=== PATIENT | female | born 1955 | race Caucasian/White ===

== ENCOUNTER 2016-06-25 02:09 | Emergency (ER) | payer BC ==
[2016-06-25] MEDS ORDERED: IPRATROPIUM/ALBUTEROL 0.5-2.5 MG/3 ML AMPUL NEB ONE (05:01)
[2016-06-25] MEDS ORDERED: PREDNISONE 20 MG TABLET PO ONE (05:01)
--- NOTE | 2016-06-25 05:03 | ER Document Report ---
ED Respiratory Problem - General Mode of Arrival: Ambulatory Information source: Patient TRAVEL OUTSIDE OF THE [place] IN LAST 30 DAYS: No - HPI Patient complains to provider of: CHF, COPD, Cough, Short of breath Onset: Yesterday Duration: Continuous Context: Hx CHF, Hx COPD At home treatment: Oxygen - at night Associated symptoms: Cough, Short of breath, Wheezing <AGATA ZARATE - Last Filed: 06/25/16 05:24> <CORIN GARCÍA - Last Filed: 06/25/16 06:41> <MANUEL LEMOS - Last Filed: 06/25/16 09:59> - General Chief Complaint: Breathing Difficulty Stated Complaint: TROUBLE BREATHING Notes: Patient is 58-year-old female presented emergency department complaint of difficulty breathing, cough, and sputum. Patient has history of COPD, CHF and is a former smoker. Patient states that she has a cough that she describes as "foamy, bubbly, with bloody mucus." Patient states last time her breathing was this bad was in March 2016 where she had similar symptoms. Patient was here for approximately 5 days for aspiration pneumonia. Patient is on oxygen at night. Patient also has history of type II diabetes mellitus, hypertension, and A. fib. Patient's PCP is [facility]. Patient states her difficulty breathing started at 20:00 on 06/24/16. (AGATA ZARATE) This 60-year-old female patient comes emergency room for worsening shortness of breath which started about 10 PM this evening. She reports doing 2 albuterol treatments with a nebulizer at home but that did not help at all. She is on home O2 for COPD. She is also significant for an ASD closure about 3 years ago, chronic A. fib, CHF, diabetes, hypertension. She quit smoking 4 years ago. When seen in the emergency room she has diffuse inspiratory and expiratory wheezes, with prolonged expiratory phase. DuoNeb treatment did not improve her very much. She states she cannot tell any difference. She states the last time she had this much trouble was in March 2016 when she was admitted for acute on chronic hypoxic respiratory failure. (CORIN GARCÍA) - Related Data Allergies/Adverse Reactions: ampicillin [Ampicillin] Allergy (Verified 05/14/16 19:30) Penicillins Allergy (Verified 05/14/16 19:30) tetracycline [Tetracycline] Allergy (Verified 05/14/16 19:30) cillins Allergy (Uncoded 05/14/16 19:30) Past Medical History - General Information source: Patient - Social History Smoking Status: Former Smoker - quit in 2011 Chew tobacco use (# tins/day): No Frequency of alcohol use: None Drug Abuse: None Family History: CAD, DM, Malignancy Patient has suicidal ideation: No Patient has homicidal ideation: No - Past Medical History Cardiac Medical History: Reports: Hx Atrial Fibrillation, Hx Congestive Heart Failure, Hx Coronary Artery Disease, Hx Hypertension, Hx Heart Murmur Pulmonary Medical History: Reports: Hx Asthma, Hx Bronchitis, Hx COPD, Hx Pneumonia Endocrine Medical History: Reports: Hx Diabetes Mellitus Type 2 - diet controlled and metformin GI Medical History: Reports: Hx Diverticulitis Musculoskeltal Medical History: Reports Other - spinal stenosis Past Surgical History: Reports: Hx Bowel Surgery - PYLORIC STENOSIS, Hx Cardiac Catheterization - x3, Hx Cardiac Surgery - ASD closure, Hx Section - x2 1980s, Hx Tubal Ligation, Other - polyp removed - Immunizations Immunizations up to date: Yes Hx Diphtheria, Pertussis, Tetanus Vaccination: Yes Hx Pneumococcal Vaccination: 06/21/14 <AGATA ZARATE - Last Filed: 06/25/16 05:24> Review of Systems - Review of Systems Constitutional: No symptoms reported EENT: No symptoms reported Cardiovascular: No symptoms reported Respiratory: See HPI, Cough, Short of breath, Sputum, Wheezing Gastrointestinal: No symptoms reported Genitourinary: No symptoms reported Female Genitourinary: No symptoms reported Musculoskeletal: No symptoms reported Skin: No symptoms reported Hematologic/Lymphatic: No symptoms reported Neurological/Psychological: No symptoms reported -: Yes All other systems reviewed and negative <AGATA ZARATE - Last Filed: 06/25/16 05:24> Physical Exam - Vital signs Interpretation: Normal - General General appearance: Appears well, Alert In distress: Mild - HEENT Head: Normocephalic, Atraumatic Eyes: Normal Pupils: PERRL Mucous membranes: Normal - Respiratory Respiratory status: No respiratory distress Chest status: Nontender Breath sounds: Rhonchi, Wheezing - Respiratory expiratory wheezing with very prolonged expiratory phase Chest palpation: Normal - Cardiovascular Rhythm: Regular Heart sounds: Normal auscultation - Abdominal Inspection: Normal Distension: No distension Bowel sounds: Normal Tenderness: Nontender Organomegaly: No organomegaly - Back Back: Normal, Nontender - Extremities General upper extremity: Normal inspection, Normal ROM, Normal strength General lower extremity: Normal inspection, Normal ROM, Normal strength - Neurological Neuro grossly intact: Yes Cognition: Normal Orientation: AAOx4 Sonny Coma Scale Eye Opening: Spontaneous Sonny Coma Scale Verbal: Oriented [place] Coma Scale Motor: Obeys Commands [place] Coma Scale Total: 15 Speech: Normal - Psychological Associated symptoms: Normal affect, Normal mood - Skin Skin Temperature: Warm Skin Moisture: Dry <AGATA ZARATE - Last Filed: 06/25/16 05:24> Course <AGATA ZARATE - Last Filed: 06/25/16 05:24> - Laboratory Result Diagrams: 06/25/16 05:21 06/25/16 05:21 - Diagnostic Test Radiology reviewed: Image reviewed, Reports reviewed - Chest x-ray shows COPD with no infiltrates or pulmonary edema. There is some vascular congestion seen according to the radiologist. The BNP is - EKG Interpretation by Ar EKG shows normal: Downs, Intervals, ST-T Waves. abnormal: QRS Complexes Rate: Normal - 85 Rhythm: A.Fib Downs/QRS: RBBB - Consults Dr. Rea Time consulted: 06:20 Consulted provider: will come to ER <CORIN GARCÍA - Last Filed: 06/25/16 06:41> - Laboratory Result Diagrams: 06/25/16 05:21 06/25/16 05:21 <MANUEL LEMOS - Last Filed: 06/25/16 09:59> - Re-evaluation Re-evalutation: 06/25/16 06:27 (CORIN GARCÍA) 06/25/16 09:52 Patient was seen and evaluated by hospitalist Dr. Guido this morning. At this time patient is feeling much better is requesting to go home. Patient was evaluated by hospitalist and agrees with this assessment. I personally interviewed patient she agrees to be discharged home. Dr. Guido is requesting a tapering dose of steroids 603 days 403 days 203 days then stop patient also requesting more beer all inhalers. Patient was encouraged to return to the ER symptoms worsen. (MANUEL LEMOS) - Vital Signs Vital signs: Temp Pulse Resp BP Pulse Ox 92 12 99/56 L 94 06/25/16 06:16 06/25/16 08:10 06/25/16 08:10 06/25/16 08:10 (CORIN GARCÍA) (MANUEL LEMOS) Discharge <AGATA ZARATE - Last Filed: 06/25/16 05:24> <CORIN GARCÍA - Last Filed: 06/25/16 06:41> <MANUEL LEMOS - Last Filed: 06/25/16 09:59> - Discharge Clinical Impression: Acute exacerbation of chronic obstructive pulmonary disease (COPD), Chronic atrial fibrillation Condition: Good Disposition: HOME, SELF-CARE Instructions: Chronic Obstructive Lung Disease ([facility]) Additional Instructions: Follow-up with primary care physician. Take medications as prescribed. Return to the ER symptoms worsen. Prescriptions: Albuterol Sulfate [Albuterol Sulfate 2.5mg/3 mL] 2.5 mg IH Q4 PRN #30 vial PRN Reason: Prednisone [Deltasone] 20 mg PO DAILY #18 tablet Scribe Attestation: 06/25/16 06:31 I personally performed the services described in the documentation, reviewed and edited the documentation which was dictated to the scribe in my presence, and it accurately records my words and actions. (CORIN GARCÍA) Scribe Documentation - Scribe Written by Stephen:: Agata Zarate (06/25/15 05:38) acting as scribe for :: Mckayla <AGATA ZARATE - Last Filed: 06/25/16 05:24>
[2016-06-25 05:34] LABS: ABSOLUTE EOSINOPHILS # (AUTO) 0.2 10^3/uL (0.0-0.6); ABSOLUTE LYMPHOCYTES (AUTO) 1.6 10^3/uL (0.5-4.7); ABSOLUTE MONOCYTES (AUTO) 0.5 10^3/uL (0.1-1.4); ABSOLUTE NEUT (AUTO) 3.2 10^3/uL (1.7-8.2); BASOPHILS % (AUTO) 0.7 % (0-2); EOSINOPHILS % (AUTO) 3.8 % (0-6); HEMATOCRIT 43.5 % (36.0-47.0); HEMOGLOBIN 14.8 g/dL (12.0-15.5); HGB HCT DIFFERENCE 0.9; LYMPHOCYTES % (AUTO) 28.7 % (13-45); MEAN CORPUSCULAR HEMOGLOBIN 29.9 pg (27.0-33.4); MEAN CORPUSCULAR VOLUME 88 fl (80-97); MONOCYTES % (AUTO) 8.9 % (3-13); RED BLOOD COUNT 4.95 10^6/uL (3.72-5.28); SEGMENTED NEUTROPHILS % (AUTO) 57.9 % (42-78); WHITE BLOOD COUNT 5.6 10^3/uL (4.0-10.5)
[2016-06-25 05:47] LABS: ALANINE AMINOTRANSFERASE 41 U/L (9-52); ALBUMIN 3.8 g/dL (3.5-5.0); ALKALINE PHOSPHATASE 70 U/L (38-126); ANION GAP 13 (5-19); ASPARTATE AMINO TRANSFERASE 28 U/L (14-36); BILIRUBIN,TOTAL 0.3 mg/dL (0.2-1.3); BLOOD UREA NITROGEN 11 mg/dL (7-20); CALCIUM 9.2 mg/dL (8.4-10.2); CARBON DIOXIDE 25 mmol/L (22-30); CHLORIDE 103 mmol/L (98-107); CREATINE KINASE 72 U/L (30-135); CREATININE RESULT 0.58 mg/dL (0.52-1.25); GLUCOSE 87 mg/dL (75-110); POTASSIUM 4.1 mmol/L (3.6-5.0); SODIUM 141.3 mmol/L (137-145); TOTAL PROTEIN 6.3 g/dL (6.3-8.2)
[2016-06-25 05:59] LABS: CREATINE KINASE MB 0.54 ng/mL (<4.55); TROPONIN I 0.013 ng/mL
[2016-06-25] MEDS ORDERED: ALBUTEROL SULFATE 0.083% NEB 2.5 MG/3 ML AMPUL NEB ONE (06:25)
--- NOTE | 2016-06-25 07:58 | EKG REPORT ---
SEVERITY:- ABNORMAL ECG - ATRIAL FIBRILLATION, V-RATE 71-97 INCOMPLETE RIGHT BUNDLE BRANCH BLOCK : Confirmed by: Kori Keenan 25-Jun-2016 07:57:51
[2016-06-25 10:06] VITALS: BP 109/79
--- NOTE | 2016-06-25 19:43 | PDOC CONSULTATION ---
Consultation Consult Date: 06/25/16 Attending physician:: CORIN GARCÍA Consult reason:: Shortness of breath History of Present Illness History of Present Illness: LEXX KIMBALL is a 60 year old female with a history of atrial fibrillation, hypertension, COPD, and congestive heart failure who presented to the emergency department after having a sudden onset of shortness of breath. She reports that she couldn't breathe laying she was better sitting. She has noted some swelling but not very much recently. She reports she's had clear sputum and that she's felt better after receiving prednisone and breathing treatments in the emergency department. She reports she got nauseated yesterday. She reports that her sputum has been foamy purulent. She reports that she's had no weight gain and has been watching her weight carefully and reports actually a 20 pound weight loss since discharge. Patient feels comfortable beginning of steroid taper and following up with her primary care physician and if unable to improve will return to the emergency department. Past Medical History Cardiac Medical History: Reports: Atrial Fibrillation, Congestive Heart Failure , Coronary Artery Disease, Hypertension, Heart Murmur Pulmonary Medical History: Reports: Asthma, Bronchitis, Chronic Obstructive Pulmonary Disease (COPD), Pneumonia Denies: Tuberculosis Neurological Medical History: Denies: Seizures Endocrine Medical History: Reports: Diabetes Mellitus Type 2 - diet controlled and metformin GI Medical History: Reports: Diverticulitis Musculoskeltal Medical History: Reports: Other - spinal stenosis Denies: Arthritis Psychiatric Medical History: Denies: Depression Past Surgical History Past Surgical History: Reports: Cardiac Catheterization - x3, Section - x2 1980s, Tubal Ligation, Other - polyp removed Denies: Hysterectomy, Pacemaker Social History Smoking Status: Former Smoker - quit in 2011 Frequency of Alcohol Use: Rare Hx Recreational Drug Use: No Drugs: None Hx Prescription Drug Abuse: No - Advance Directive Resuscitation Status: Full Code Surrogate healthcare decision maker:: Family History Family History: CAD, DM, Malignancy Parental Family History Reviewed: Yes Children Family History Reviewed: Yes Sibling(s) Family History Reviewed.: Yes Medication/Allergy Home Medications: Aspirin [Aspirin 81 mg Chewable Tablet] 81 mg PO DAILY 07/29/13 Dabigatran Etexilate Mesylate [Pradaxa 150 mg Capsule] 110 mg PO Q12 07/29/13 Diltiazem HCl [Cardizem] 120 mg PO DAILY 07/29/13 Digoxin [Lanoxin] 62.5 mcg PO DAILY 04/09/16 Lisinopril/Hydrochlorothiazide [Lisinopril-Hctz 10-12.5 mg Tab] 1 each PO DAILY 04/10/16 Azithromycin [Zithromax 250 mg Tablet] 250 mg PO ASDIR PRN #6 tablet 05/14/16 Digoxin [Lanoxin 0.125 mg Tablet] 0.125 mg PO DAILY #60 tablet 05/14/16 Prednisone 20 mg PO DAILY #15 tablet 05/14/16 Albuterol Sulfate [Albuterol Sulfate 2.5mg/3 mL] 2.5 mg IH Q4 PRN #30 vial 06/25 Prednisone [Deltasone] 20 mg PO DAILY #18 tablet 06/25/16 Allergies/Adverse Reactions: ampicillin [Ampicillin] Allergy (Verified 05/14/16 19:30) Penicillins Allergy (Verified 05/14/16 19:30) tetracycline [Tetracycline] Allergy (Verified 05/14/16 19:30) cillins Allergy (Uncoded 05/14/16 19:30) Review of Systems Constitutional: PRESENT: as per HPI. ABSENT: chills, fever(s), headache(s), weight gain, weight loss Eyes: ABSENT: visual disturbances Ears: ABSENT: hearing changes Cardiovascular: PRESENT: as per HPI, orthropnea. ABSENT: chest pain, dyspnea on exertion, edema, palpitations Respiratory: PRESENT: as per HPI, cough, sputum. ABSENT: hemoptysis Gastrointestinal: PRESENT: as per HPI, nausea. ABSENT: abdominal pain, constipation, diarrhea, hematemesis, hematochezia, melena, vomiting Genitourinary: ABSENT: dysuria, hematuria Musculoskeletal: ABSENT: joint swelling Integumentary: ABSENT: rash, wounds Neurological: ABSENT: abnormal gait, abnormal speech, confusion, dizziness, focal weakness, syncope Psychiatric: ABSENT: anxiety, depression, homidical ideation, suicidal ideation Endocrine: ABSENT: cold intolerance, heat intolerance, polydipsia, polyuria Hematologic/Lymphatic: ABSENT: easy bleeding, easy bruising Physical Exam Vital Signs: Temp Pulse Resp BP Pulse Ox 92 24 H 109/79 95 06/25/16 06:16 06/25/16 10:04 06/25/16 10:04 06/25/16 10:04 Exam: General: Awake alert and oriented x3, no acute respiratory distress HEENT: AT/NC, PERRL, EOMI, oropharynx is moist, pink, no scleral icterus, no conjunctival injection Neck: No JVD, trachea midline Chest: Light end expiratory wheezes CV: normal S1 and S2, no rub, or gallop; + murmur Abdomen: Soft, nontender to palpation, nondistended, active bowel sounds; no rebound, rigidity, or guarding Extremities: No cyanosis, clubbing or edema Neuro: Cranial nerves II through XII are grossly intact without focal deficits; awake alert and oriented x3 Psych: Normal mood and affect Results Laboratory Results: 06/25/16 05:21 06/25/16 05:21 06/25/16 06/25/16 05:21 05:21 WBC 5.6 RBC 4.95 Hgb 14.8 Hct 43.5 MCV 88 MCH 29.9 MCHC 34.0 RDW 14.0 Plt Count 204 Seg Neutrophils % 57.9 Lymphocytes % 28.7 Monocytes % 8.9 Eosinophils % 3.8 Basophils % 0.7 Absolute Neutrophils 3.2 Absolute Lymphocytes 1.6 Absolute Monocytes 0.5 Absolute Eosinophils 0.2 Absolute Basophils 0.0 Sodium 141.3 Potassium 4.1 Chloride 103 Carbon Dioxide 25 Anion Gap 13 BUN 11 Creatinine 0.58 Est GFR ( Amer) > 60 Est GFR (Non-Af Amer) > 60 Glucose 87 Calcium 9.2 Total Bilirubin 0.3 AST 28 ALT 41 Alkaline Phosphatase 70 Total Protein 6.3 Albumin 3.8 06/25/16 06/25/16 06/25/16 05:21 05:21 05:21 Creatine Kinase 72 CK-MB (CK-2) 0.54 Troponin I 0.013 NT-Pro-B Natriuret Pep 221 Impressions: Chest X-Ray 06/25/16 05:04 IMPRESSION: No acute abnormality in the chest. Assessment & Plan - Diagnosis (1) Acute exacerbation of chronic obstructive pulmonary disease (COPD) Is this a current diagnosis for this admission?: YesPlan: Have discussed with ER physician who will send her home with prednisone taper. Patient advised to follow-up with her primary care physician within the week. Advised return the emergency department if her symptoms worsen or for any other medical concerns (2) Chronic atrial fibrillation Is this a current diagnosis for this admission?: YesPlan: Continue home medications as previously instructed - Time Time Spent: 50 to 70 Minutes Medications reviewed and adjusted accordingly: Yes Anticipated discharge: Home
== END 2016-06-25 10:06 | disposition home or self-care (01) ==
LOC: ER 02:09
DX: J44.1 Chronic obstructive pulmonary disease with (acute) exacerbation (principal); I48.2 Chronic atrial fibrillation; I50.9 Heart failure, unspecified; E11.9 Type 2 diabetes mellitus without complications; I10 Essential (primary) hypertension; Z87.891 Personal history of nicotine dependence; Z99.81 Dependence on supplemental oxygen
CPT/HCPCS: 93005; 94640 ×2; 99285; 36415; 87040; 82553; 82550; 85025; 87077; 80053; 84484; 87186; 83880; 71010; 93010; J7512; J7620

== ENCOUNTER 2016-08-28 05:30 | Inpatient (IN) | payer BC ==
[2016-08-28] MEDS ORDERED: IPRATROPIUM/ALBUTEROL 0.5-2.5 MG/3 ML AMPUL NEB ONE (05:42)
[2016-08-28] MEDS: ALBUTEROL SULFATE 0.083% NEB 2.5 MG/3 ML AMPUL NEB SCH ×2 (05:52→06:09)
[2016-08-28 06:08] LABS: VENOUS BLOOD BASE EXCESS 0.4 mmol/L; VENOUS BLOOD HCO3 27.6 mmol/L (20-32); VENOUS BLOOD PCO2 54.9 mmHg (35-63); VENOUS BLOOD PH 7.32 (7.30-7.42)
[2016-08-28 06:19] LABS: ABSOLUTE BASOPHILS # (AUTO) 0.1 10^3/uL (0.0-0.2); ABSOLUTE EOSINOPHILS # (AUTO) 0.7 10^3/uL (0.0-0.6); ABSOLUTE LYMPHOCYTES (AUTO) 2.9 10^3/uL (0.5-4.7); ABSOLUTE MONOCYTES (AUTO) 0.5 10^3/uL (0.1-1.4); ABSOLUTE NEUT (AUTO) 4.1 10^3/uL (1.7-8.2); BASOPHILS % (AUTO) 0.7 % (0-2); EOSINOPHILS % (AUTO) 8.4 % (0-6); HEMATOCRIT 41.8 % (36.0-47.0); HEMOGLOBIN 13.9 g/dL (12.0-15.5); HGB HCT DIFFERENCE -0.1; LYMPHOCYTES % (AUTO) 34.9 % (13-45); MEAN CORPUSCULAR HEMOGLOBIN 29.4 pg (27.0-33.4); MEAN CORPUSCULAR HGB CONC 33.3 g/dL (32.0-36.0); MEAN CORPUSCULAR VOLUME 88 fl (80-97); RED BLOOD COUNT 4.73 10^6/uL (3.72-5.28); RED CELL DISTRIBUTION WIDTH 14.2 % (11.5-14.0); WHITE BLOOD COUNT 8.2 10^3/uL (4.0-10.5)
[2016-08-28] MEDS ORDERED: METHYLPREDNISOLONE INJ 125 MG/2 ML SDV IV ONE (06:22)
[2016-08-28] MEDS ORDERED: MAGNESIUM SULFATE/D5W 100 ML IV ONE (06:23)
[2016-08-28] MEDS ORDERED: ALBUTEROL SULFATE 0.083% NEB 2.5 MG/3 ML AMPUL NEB ONE (06:23)
[2016-08-28] MEDS ORDERED: TERBUTALINE SULFATE INJ/PF 1 MG/1 ML SDV SUBCUT ONE (06:23)
[2016-08-28 06:26] LABS: ALANINE AMINOTRANSFERASE 35 U/L (9-52); ALBUMIN 4.1 g/dL (3.5-5.0); ALKALINE PHOSPHATASE 75 U/L (38-126); ANION GAP 14 (5-19); ASPARTATE AMINO TRANSFERASE 20 U/L (14-36); BILIRUBIN,TOTAL 0.6 mg/dL (0.2-1.3); BLOOD UREA NITROGEN 9 mg/dL (7-20); CARBON DIOXIDE 27 mmol/L (22-30); CHLORIDE 104 mmol/L (98-107); CREATINE KINASE 72 U/L (30-135); GLUCOSE 114 mg/dL (75-110); LIPASE 79.5 U/L (23-300); MAGNESIUM 1.6 mg/dL (1.6-2.3); POTASSIUM 3.5 mmol/L (3.6-5.0); SODIUM 145.1 mmol/L (137-145); TOTAL PROTEIN 6.3 g/dL (6.3-8.2)
[2016-08-28 06:38] LABS: CREATINE KINASE MB 0.58 ng/mL (<4.55)
[2016-08-28 06:42] LABS: TROPONIN I < 0.012 ng/mL
[2016-08-28] MEDS ORDERED: POTASSIUM CHLORIDE 10 MEQ TABLET.SA PO ONE (06:53)
[2016-08-28] MEDS ORDERED: ACETAMINOPHEN 325 MG TABLET PO ONE (07:44)
--- NOTE | 2016-08-28 08:50 | ER Document Report ---
ED General - General Chief Complaint: Breathing Difficulty Stated Complaint: SHORT OF BREATH/WHEEZING TRAVEL OUTSIDE OF THE [place] IN LAST 30 DAYS: No - HPI Patient complains to provider of: difficulty in breathing Notes: Patient's coming in for evaluation of difficulty breathing. Patient has a history of COPD respiratory failure hypercapnia past. Patient states ongoing for the last 3 days no production to her cough no fevers no chills no night sweats however states that there is been no improvement with her treatments at home. Patient denies any recent antibiotics or recent steroids. Patient denies also any recent travel denies chest pain abdominal pain - Related Data Allergies/Adverse Reactions: ampicillin [Ampicillin] Allergy (Verified 08/28/16 07:45) Penicillins Allergy (Verified 08/28/16 07:45) tetracycline [Tetracycline] Allergy (Verified 08/28/16 07:45) cillins Allergy (Uncoded 08/28/16 07:45) Home Medications: Current Home Medications Albuterol Sulfate [Proair HFA] 2 puff IH Q4HP PRN 08/28/16 [History] Albuterol Sulfate [Ventolin 0.042% Neb 1.25 mg/3 mL Ampul] 3 ml NEB RTQ4HP PRN 08/28/16 [History] Aspirin [Adult Low Dose Aspirin EC] 81 mg PO DAILY 08/28/16 [History] Dabigatran Etexilate Mesylate [Pradaxa 150 mg Capsule] 150 mg PO BID 08/28/16 [ History] Digoxin [Lanoxin 0.25 mg Tablet] 0.25 mg PO DAILY 08/28/16 [History] Diltiazem HCl [Diltiazem ER] 180 mg PO DAILY 08/28/16 [History] Fluticasone Propionate [Flonase Nasal Harvey 50 Mcg/Harvey 16 gm] 2 spray NASL DAILY 08/28/16 [History] Furosemide [Lasix] 40 mg PO DAILY PRN 08/28/16 [History] Lisinopril [Zestril] 2.5 mg PO DAILY 08/28/16 [History] Melatonin 10 mg PO QPM 08/28/16 [History] Metformin HCl [Glucophage] 500 mg PO BIDBS 08/28/16 [History] Multivitamin [Multivitamins] 1 cap PO DAILY 08/28/16 [History] Sennosides/Docusate 8.6-50 mg [Senna Plus Tablet] 1 tab PO DAILY 08/28/16 [ History] Umeclidinium Brm/Vilanterol Tr [Anoro Ellipta 62.5-25 Mcg INH] 1 puff IH DAILY 08/28/16 [History] Past Medical History - Social History Smoking Status: Current Every Day Smoker Chew tobacco use (# tins/day): No Frequency of alcohol use: None Drug Abuse: None Family History: CAD, DM, Malignancy Patient has suicidal ideation: No Patient has homicidal ideation: No - Past Medical History Cardiac Medical History: Reports: Hx Atrial Fibrillation, Hx Congestive Heart Failure, Hx Coronary Artery Disease, Hx Hypertension, Hx Heart Murmur Pulmonary Medical History: Reports: Hx Asthma, Hx Bronchitis, Hx COPD, Hx Pneumonia Denies: Hx Tuberculosis Neurological Medical History: Denies: Hx Seizures Endocrine Medical History: Reports: Hx Diabetes Mellitus Type 2 - diet controlled and metformin Renal/ Medical History: Denies: Hx Peritoneal Dialysis GI Medical History: Reports: Hx Diverticulitis Musculoskeltal Medical History: Denies Hx Arthritis Psychiatric Medical History: Denies: Hx Depression Past Surgical History: Reports: Hx Bowel Surgery - PYLORIC STENOSIS, Hx Cardiac Catheterization - x3, Hx Cardiac Surgery - ASD closure, Hx Section - x2 1980s, Hx Tubal Ligation, Other - polyp removed. Denies: Hx Hysterectomy, Hx Pacemaker - Immunizations Immunizations up to date: Yes Hx Diphtheria, Pertussis, Tetanus Vaccination: Yes Hx Pneumococcal Vaccination: 06/21/14 Review of Systems - Review of Systems Constitutional: No symptoms reported EENT: No symptoms reported Cardiovascular: No symptoms reported Respiratory: Cough, Short of breath, Wheezing Gastrointestinal: No symptoms reported Genitourinary: No symptoms reported Female Genitourinary: No symptoms reported Musculoskeletal: No symptoms reported Skin: No symptoms reported Hematologic/Lymphatic: No symptoms reported Neurological/Psychological: No symptoms reported -: Yes All other systems reviewed and negative Physical Exam - Vital signs Vitals: Temp Pulse Resp BP Pulse Ox 97.7 F 97 28 H 123/83 90 L 08/28/16 05:35 08/28/16 05:35 08/28/16 05:35 08/28/16 05:35 08/28/16 05:35 Interpretation: Normal - General General appearance: Appears well, Alert - HEENT Head: Normocephalic, Atraumatic Eyes: Normal Pupils: PERRL - Respiratory Respiratory status: No respiratory distress Chest status: Nontender Breath sounds: Rhonchi, Wheezing Chest palpation: Normal - Cardiovascular Rhythm: Irregularly irregular Heart sounds: Normal auscultation Murmur: No - Abdominal Inspection: Normal Distension: No distension Bowel sounds: Normal Tenderness: Nontender Organomegaly: No organomegaly - Back Back: Normal, Nontender - Extremities General upper extremity: Normal inspection, Nontender, Normal color, Normal ROM , Normal temperature General lower extremity: Normal inspection, Nontender, Normal color, Normal ROM , Normal temperature, Normal weight bearing. No: Willis's sign - Neurological Neuro grossly intact: Yes Cognition: Normal Orientation: AAOx4 Sonny Coma Scale Eye Opening: Spontaneous Sonny Coma Scale Verbal: Oriented [place] Coma Scale Motor: Obeys Commands [place] Coma Scale Total: 15 Speech: Normal Motor strength normal: LUE, RUE, LLE, RLE Sensory: Normal - Psychological Associated symptoms: Normal affect, Normal mood - Skin Skin Temperature: Warm Skin Moisture: Dry Skin Color: Normal Course - Re-evaluation Re-evalutation: 08/28/16 15:19 Patient lab work only showed slight hypokalemia with no signs of hypercapnia chest x-ray shows no signs of concurrent infection or pneumonia. Patient was given magnesium terbutaline steroids and multiple real treatments however upon ambulating patient became very short of breath and tachypnea patient still sounds very tight she's case was referred to the hospitalist for further evaluation - Vital Signs Vital signs: Temp Pulse Resp BP Pulse Ox 97.7 F 95 18 126/71 H 95 08/28/16 13:17 08/28/16 13:17 08/28/16 13:17 08/28/16 13:17 08/28/16 13:17 - Laboratory Result Diagrams: 08/28/16 05:53 08/28/16 05:53 Laboratory results interpreted by me: 08/28/16 08/28/16 08/28/16 05:53 05:53 05:53 RDW 14.2 H Eosinophils % 8.4 H Absolute Eosinophils 0.7 H Sodium 145.1 H Potassium 3.5 L Creatinine 0.50 L Glucose 114 H Digoxin 0.71 L Discharge - Discharge Clinical Impression: Acute exacerbation of chronic obstructive pulmonary disease (COPD) Afib Qualifiers: Atrial fibrillation type: chronic Qualified Code(s): I48.2 - Chronic atrial fibrillation Condition: Fair Disposition: ADMITTED INPATIENT [facility] Admitted: Telemetry
[2016-08-28] MEDS ORDERED: GLUCAGON,HUMAN RECOMB 1 MG INJ IM PRN (09:22)
[2016-08-28] MEDS ORDERED: DEXTROSE 50%-WATER 25 GM/50 ML DISP.SYRIN IV PRN ×2 (09:22)
[2016-08-28] MEDS ORDERED: ACETAMINOPHEN 325 MG TABLET PO PRN (09:22)
[2016-08-28] MEDS ORDERED: ALBUTEROL SULFATE 0.083% NEB 2.5 MG/3 ML AMPUL NEB PRN (09:22)
[2016-08-28] MEDS ORDERED: DEXTROSE 40% GEL 15 GM TUBE PO PRN ×2 (09:22)
[2016-08-28] MEDS: OXYCODONE-ACETAMINOPHEN 5-325 MG TABLET PO PRN ×3 (09:55→23:20)
[2016-08-28] MEDS ORDERED: (PENDING PHARMACY ID) (Diltiazem Hcl [Cardizem] 120 MG) PO SCH (10:00)
[2016-08-28] MEDS: CEFTRIAXONE 1 GM/D5W RTU 50 ML IV SCH (10:00)
[2016-08-28] MEDS ORDERED: (PENDING PHARMACY ID) (Lisinopril/Hydrochlorothiazide [Lisinopril-Hctz 10-12.5 Mg Tab] 1 E PO SCH (10:00)
[2016-08-28] MEDS: DIGOXIN 0.25 MG TABLET PO SCH (10:25)
[2016-08-28] MEDS: DABIGATRAN ETEXILATE 150 MG CAPSULE PO SCH ×2 (10:25→22:41)
[2016-08-28] MEDS: DOCUSATE SODIUM 100 MG CAPSULE PO SCH (10:25)
[2016-08-28] MEDS: HYDROCHLOROTHIAZIDE 12.5 MG CAPSULE PO SCH (10:30)
[2016-08-28] MEDS: DILTIAZEM HCL 120 MG CAP.SR.24H PO SCH (10:30)
[2016-08-28] MEDS: LISINOPRIL 10 MG TABLET PO SCH (10:30)
[2016-08-28] MEDS: ASPIRIN 81 MG TABLET, CHEWABLE PO SCH (10:30)
[2016-08-28] MEDS: INSULIN LISPRO 100 UNIT/ML 3 ML VIAL SUBCUT PRN ×3 (12:30→22:49)
[2016-08-28] MEDS: METHYLPREDNISOLONE INJ 40 MG/1 ML SDV IV SCH ×2 (14:00→22:41)
[2016-08-28] MEDS: IPRATROPIUM/ALBUTEROL 0.5-2.5 MG/3 ML AMPUL NEB SCH (16:26)
--- NOTE | 2016-08-28 19:23 | PDOC H&P ---
History of Present Illness Admission Date/PCP: 08/28/16 09:22 ABIODUN HART DO Patient complains of: Difficulty breathing History of Present Illness: LEXX KIMBALL is a 61 year old female presents to the emergency department from home with several day history of chest congestion, tightness and wheezing with cough productive of a milky white phlegm. She denies fever, chills, nausea , vomiting, diarrhea, cardiac type chest pain, orthopnea, PND, weight gain or loss, hemoptysis, melena, hematochezia. She has known COPD and wears nocturnal O2 at 2 L continuous and has a home nebulizer machine but is getting no relief from either one. She has a history of chronic atrial fibrillation for which she takes per DEXA and diltiazem. She has a history of congestive heart failure but does not complain of any swelling of her lower extremities are wrapped waking. Evaluation in the emergency department chest x-ray shows questionable atelectasis but she is not improving with nebulizers, IV steroids and supplemental oxygen therefore we were asked to admit for COPD exacerbation. Past Medical History Cardiac Medical History: Reports: Atrial Fibrillation, Congestive Heart Failure , Coronary Artery Disease, Hypertension, Heart Murmur Pulmonary Medical History: Reports: Asthma, Bronchitis, Chronic Obstructive Pulmonary Disease (COPD), Pneumonia Denies: Tuberculosis Neurological Medical History: Denies: Seizures Endocrine Medical History: Reports: Diabetes Mellitus Type 2 - diet controlled and metformin GI Medical History: Reports: Diverticulitis Musculoskeltal Medical History: Denies: Arthritis Psychiatric Medical History: Denies: Depression Past Surgical History Past Surgical History: Reports: Cardiac Catheterization - x3, Section - x2 1980s, Tubal Ligation, Other - polyp removed Denies: Hysterectomy, Pacemaker Social History Smoking Status: Current Every Day Smoker Number of Years Smokin Frequency of Alcohol Use: Rare Hx Recreational Drug Use: No Drugs: None Hx Prescription Drug Abuse: No - Advance Directive Resuscitation Status: Full Code Family History Family History: CAD, DM, Malignancy Parental Family History Reviewed: Yes Children Family History Reviewed: Yes Sibling(s) Family History Reviewed.: Yes Medication/Allergy Home Medications: Albuterol Sulfate [Proair HFA] 2 puff IH Q4HP PRN 08/28/16 Albuterol Sulfate [Ventolin 0.042% Neb 1.25 mg/3 mL Ampul] 3 ml NEB RTQ4HP PRN 08/28/16 Aspirin [Adult Low Dose Aspirin EC] 81 mg PO DAILY 08/28/16 Dabigatran Etexilate Mesylate [Pradaxa 150 mg Capsule] 150 mg PO BID 08/28/16 Digoxin [Lanoxin 0.25 mg Tablet] 0.25 mg PO DAILY 08/28/16 Diltiazem HCl [Diltiazem ER] 180 mg PO DAILY 08/28/16 Fluticasone Propionate [Flonase Nasal [place] 50 Mcg/[place] 16 gm] 2 spray NASL DAILY 08/28/16 Furosemide [Lasix] 40 mg PO DAILY PRN 08/28/16 Lisinopril [Zestril] 2.5 mg PO DAILY 08/28/16 Melatonin 10 mg PO QPM 08/28/16 Metformin HCl [Glucophage] 500 mg PO BIDBS 08/28/16 Multivitamin [Multivitamins] 1 cap PO DAILY 08/28/16 Sennosides/Docusate 8.6-50 mg [Senna Plus Tablet] 1 tab PO DAILY 08/28/16 Umeclidinium Brm/Vilanterol Tr [Anoro Ellipta 62.5-25 Mcg INH] 1 puff IH DAILY 08/28/16 Allergies/Adverse Reactions: ampicillin [Ampicillin] Allergy (Verified 08/28/16 07:45) Penicillins Allergy (Verified 08/28/16 07:45) tetracycline [Tetracycline] Allergy (Verified 08/28/16 07:45) cillins Allergy (Uncoded 08/28/16 07:45) Review of Systems Constitutional: ABSENT: chills, fever(s), headache(s), weight gain, weight loss Eyes: ABSENT: visual disturbances Ears: ABSENT: hearing changes Cardiovascular: ABSENT: chest pain, dyspnea on exertion, edema, orthropnea, palpitations Respiratory: PRESENT: as per HPI, cough, sputum. ABSENT: hemoptysis Gastrointestinal: ABSENT: abdominal pain, constipation, diarrhea, hematemesis, hematochezia, nausea, vomiting Genitourinary: ABSENT: dysuria, hematuria Musculoskeletal: ABSENT: joint swelling Integumentary: ABSENT: rash, wounds Neurological: ABSENT: abnormal gait, abnormal speech, confusion, dizziness, focal weakness, syncope Psychiatric: ABSENT: anxiety, depression Endocrine: ABSENT: cold intolerance, heat intolerance, polydipsia, polyuria Hematologic/Lymphatic: ABSENT: easy bleeding, easy bruising Physical Exam Vital Signs: Temp Pulse Resp BP Pulse Ox 97.6 F 90 19 122/70 94 08/28/16 14:59 08/28/16 14:59 08/28/16 14:59 08/28/16 14:59 08/28/16 14:59 PHYSICAL EXAM GENERAL: NAD; well developed, well nourished; no obese; alert and oriented to person, place, time, situation HEENT: normocephalic, atraumatic; EOMI, PERRLA, no conjunctival injection, no scleral icterus; oral mucosa moist, neck supple, no LAD, normal ROM RESPIRATORY: no accessory muscle use, no increased WOB, good air entry bilaterally; bilateral wheezes, but down rales, rhonchi or inspiratory crackles CARDIO: no JVD; irregularly irregular and rate control; no systolic murmur; no tachycardia VASCULAR: no carotid bruit; no abdominal bruit; no pallor; 2+ radial, DP pulse ; normal capillary refill GI: soft; nondistended; normal bowel sounds; no hepato spleno megaly; no rebound, rigidity, guarding; nontender NEURO: normal patella reflexes; normal motor function; no gait abnls; no dysarthria; no nystagmus; MSK: 5/5 strength; normal ROM hips; ambulatory without assistance; no tenderness EXTREMITIES: no calf tender; no palpable cords in calf; no clubbing, cyanosis , pedal edema PSYCH: normal affect, normal mood SKIN: warm; moist; no petechiae; no telengectasias; no jaundice; no rash Results Laboratory Results: 08/28/16 11:11 Troponin I < 0.012 Labs reviewed Impressions: Chest X-Ray 08/28/16 06:23 IMPRESSION: No significant interval change. Findings as noted above Assessment & Plan - Diagnosis (1) Acute exacerbation of chronic obstructive pulmonary disease (COPD) Is this a current diagnosis for this admission?: YesPlan: Admit to monitored bed overnight for IV systemic steroids, empiric antibiotics, nebulizers, supplemental O2. (2) Afib Qualifiers: Atrial fibrillation type: chronic Qualified Code(s): I48.2 - Chronic atrial fibrillation Is this a current diagnosis for this admission?: YesPlan: Rate controlled and on chronic anticoagulation, continue usual home regimen. (3) Acute on chronic respiratory failure with hypoxemia Is this a current diagnosis for this admission?: YesPlan: Treatment as noted above. Wean O2 as tolerated. (4) CAD (coronary artery disease) Qualifiers: Coronary Disease-Associated Artery/Lesion type: [place] artery [place] vs. transplanted heart: [place] heart Associated angina: without angina Qualified Code(s): I25.10 - Atherosclerotic heart disease of [place] coronary artery without angina pectoris Is this a current diagnosis for this admission?: YesPlan: Controlled. Continue home regimen. (5) Congestive heart failure (CHF) Qualifiers: Congestive heart failure type: unspecified congestive heart failure type Congestive heart failure chronicity: chronic Qualified Code(s): I50.9 - Heart failure, unspecified Is this a current diagnosis for this admission?: YesPlan: No evidence for acute heart failure. (6) Diabetes mellitus type 2 in nonobese Is this a current diagnosis for this admission?: YesPlan: Continue home regimen except holding metformin, cover with sliding scale. Blood sugars will likely worsen with systemic steroids. - Time Time Spent: 50 to 70 Minutes Medications reviewed and adjusted accordingly: Yes Anticipated discharge: Home Within: within 72 hours - Inpatient Certification Medical Necessity: Significant Comorbidiites Make Outpatient Treatment Too Risky , Need for IV Antibiotics, Risk of Complication if Not Cared For in Hospital
--- NOTE | 2016-08-28 19:38 | EKG REPORT ---
SEVERITY:- ABNORMAL ECG - ATRIAL FIBRILLATION, V-RATE 86-100 LOW VOLTAGE THROUGHOUT CONSIDER RVH W/ SECONDARY REPOL ABNORMALITY : Confirmed by: Kori Keenan 28-Aug-2016 19:37:45
--- NOTE | 2016-08-28 19:38 | EKG REPORT ---
SEVERITY:- ABNORMAL ECG - ATRIAL FIBRILLATION, V-RATE 85-123 INCOMPLETE RIGHT BUNDLE BRANCH BLOCK LOW VOLTAGE IN FRONTAL LEADS NONSPECIFIC REPOL ABNORMALITY, LATERAL LEADS : Confirmed by: Kori Keenan 28-Aug-2016 19:37:36
[2016-08-28] MEDS: ONDANSETRON HCL INJ/PF 4 MG/2 ML SDV IV PRN (23:20)
[2016-08-29] MEDS: IPRATROPIUM/ALBUTEROL 0.5-2.5 MG/3 ML AMPUL NEB SCH ×4 (00:17→23:55)
[2016-08-29] MEDS: METHYLPREDNISOLONE INJ 40 MG/1 ML SDV IV SCH ×2 (05:28→22:20)
[2016-08-29] MEDS: LANSOPRAZOLE 30 MG TAB.RAP.DR PO SCH (05:28)
[2016-08-29] MEDS: INSULIN LISPRO 100 UNIT/ML 3 ML VIAL SUBCUT PRN ×4 (08:17→23:00)
[2016-08-29] MEDS: LISINOPRIL 10 MG TABLET PO SCH (09:47)
[2016-08-29] MEDS: DIGOXIN 0.25 MG TABLET PO SCH (09:47)
[2016-08-29] MEDS: CEFTRIAXONE 1 GM/D5W RTU 50 ML IV SCH (09:47)
[2016-08-29] MEDS: DILTIAZEM HCL 120 MG CAP.SR.24H PO SCH (09:49)
[2016-08-29] MEDS: ASPIRIN 81 MG TABLET, CHEWABLE PO SCH (09:49)
[2016-08-29] MEDS: DOCUSATE SODIUM 100 MG CAPSULE PO SCH (09:49)
[2016-08-29] MEDS: DABIGATRAN ETEXILATE 150 MG CAPSULE PO SCH ×2 (09:54→22:20)
[2016-08-29] MEDS: HYDROCHLOROTHIAZIDE 12.5 MG CAPSULE PO SCH (09:58)
[2016-08-29] MEDS: OXYCODONE-ACETAMINOPHEN 5-325 MG TABLET PO PRN (13:27)
[2016-08-29] MEDS: ONDANSETRON HCL INJ/PF 4 MG/2 ML SDV IV PRN (15:53)
--- NOTE | 2016-08-29 16:32 | PDOC PROGRESS REPORT ---
Subjective Progress Note for:: 08/29/16 Subjective:: Reason for today's visit; follow-up COPD exacerbation Hospital course;LEXX KIMBALL is a 61 year old female presents to the emergency department from home with several day history of chest congestion, tightness and wheezing with cough productive of a milky white phlegm. She denies fever, chills, nausea, vomiting, diarrhea, cardiac type chest pain, orthopnea, PND, weight gain or loss, hemoptysis, melena, hematochezia. She has known COPD and wears nocturnal O2 at 2 L continuous and has a home nebulizer machine but is getting no relief from either one. She has a history of chronic atrial fibrillation for which she takes per DEXA and diltiazem. She has a history of congestive heart failure but does not complain of any swelling of her lower extremities are wrapped waking. Evaluation in the emergency department chest x-ray shows questionable atelectasis but she is not improving with nebulizers, IV steroids and supplemental oxygen therefore we were asked to admit for COPD exacerbation. Subjective: Patient really doesn't feel much better today she is complaining of "tickle" in the back of her throat causing cough which initiates further bronchospasm. She continues to complain of chest tightness without john chest pain. She notes some nausea after the paroxysms of cough. She denies fevers, chills, vomiting, diarrhea. ROS: per HPI plus a total of 10 systems reviewed, pertinent positives and negatives noted above, remaining systems negative. Physical Exam Vital Signs: Temp Pulse Resp BP Pulse Ox 97.9 F 96 16 108/73 98 08/29/16 11:51 08/29/16 15:57 08/29/16 15:57 08/29/16 11:51 08/29/16 11:51 Intake & Output 08/28/16 08/29/16 08/30/16 06:59 06:59 07:59 Intake Total 830 Balance 830 Weight 86.2 kg EXAM GENERAL: NAD; well developed, well nourished; no obese; alert and oriented to person, place, time, situation HEENT: normocephalic, atraumatic, no conjunctival injection, no scleral icterus ; oral mucosa moist, neck supple, no LAD, normal ROM RESPIRATORY: no accessory muscle use, no increased WOB, good air entry bilaterally; bilateral end expiratory wheezes, but no rales, rhonchi or inspiratory crackles CARDIO: no JVD; irregularly irregular and rate control; no systolic murmur; no tachycardia VASCULAR: no carotid bruit; no abdominal bruit; no pallor; 2+ radial, pulse; normal capillary refill GI: soft; nondistended; normal bowel sounds; no hepato spleno megaly; no rebound, rigidity, guarding; nontender NEURO: normal patella reflexes; normal motor function; no dysarthria; no nystagmus; MSK: 5/5 strength; normal ROM hips; ambulatory without assistance; no tenderness EXTREMITIES: no calf tender; no palpable cords in calf; no clubbing, cyanosis , pedal edema PSYCH: normal affect, normal mood SKIN: warm; moist; no petechiae; no telengectasias; no jaundice; no rash Results Laboratory Results: 08/28/16 11:11 Troponin I < 0.012 Impressions: Chest X-Ray 08/28/16 06:23 IMPRESSION: No significant interval change. Findings as noted above Status: Imported from PACS Assessment & Plan - Diagnosis (1) Acute exacerbation of chronic obstructive pulmonary disease (COPD) Is this a current diagnosis for this admission?: YesPlan: Minimal improvement, continue IV systemic steroids, empiric antibiotics, nebulizers, supplemental O2. Add cough suppressant (2) Afib Qualifiers: Atrial fibrillation type: chronic Qualified Code(s): I48.2 - Chronic atrial fibrillation Is this a current diagnosis for this admission?: Yes (3) Acute on chronic respiratory failure with hypoxemia Is this a current diagnosis for this admission?: Yes (4) CAD (coronary artery disease) Qualifiers: Coronary Disease-Associated Artery/Lesion type: [place] artery [place] vs. transplanted heart: [place] heart Associated angina: without angina Qualified Code(s): I25.10 - Atherosclerotic heart disease of [place] coronary artery without angina pectoris Is this a current diagnosis for this admission?: Yes (5) Congestive heart failure (CHF) Qualifiers: Congestive heart failure type: unspecified congestive heart failure type Congestive heart failure chronicity: chronic Qualified Code(s): I50.9 - Heart failure, unspecified Is this a current diagnosis for this admission?: Yes (6) Diabetes mellitus type 2 in nonobese Is this a current diagnosis for this admission?: Yes - Time Time Spent with patient: 25-34 minutes
[2016-08-29] MEDS: METFORMIN HCL 500 MG TABLET PO SCH (17:38)
[2016-08-29] MEDS: SODIUM CHLORIDE NASAL SPRAY 44 ML NASL SCH ×2 (17:38→22:20)
[2016-08-29] MEDS: HYDROCODONE BIT/HOMATROPINE 5-1.5 MG TABLET PO PRN (22:20)
[2016-08-30] MEDS: LANSOPRAZOLE 30 MG TAB.RAP.DR PO SCH (06:09)
[2016-08-30] MEDS: METFORMIN HCL 500 MG TABLET PO SCH ×2 (08:06→16:40)
[2016-08-30] MEDS: INSULIN LISPRO 100 UNIT/ML 3 ML VIAL SUBCUT PRN ×4 (08:06→21:39)
[2016-08-30] MEDS: SODIUM CHLORIDE NASAL SPRAY 44 ML NASL SCH ×4 (08:06→21:39)
[2016-08-30] MEDS: IPRATROPIUM/ALBUTEROL 0.5-2.5 MG/3 ML AMPUL NEB SCH ×3 (08:12→23:47)
[2016-08-30] MEDS: DILTIAZEM HCL 120 MG CAP.SR.24H PO SCH (10:13)
[2016-08-30] MEDS: METHYLPREDNISOLONE INJ 40 MG/1 ML SDV IV SCH ×2 (10:13→21:40)
[2016-08-30] MEDS: DABIGATRAN ETEXILATE 150 MG CAPSULE PO SCH ×2 (10:14→21:39)
[2016-08-30] MEDS: DIGOXIN 0.25 MG TABLET PO SCH (10:14)
[2016-08-30] MEDS: ASPIRIN 81 MG TABLET, CHEWABLE PO SCH (10:15)
[2016-08-30] MEDS: DOCUSATE SODIUM 100 MG CAPSULE PO SCH (10:15)
[2016-08-30] MEDS: LISINOPRIL 10 MG TABLET PO SCH (10:15)
[2016-08-30] MEDS: CEFTRIAXONE 1 GM/D5W RTU 50 ML IV SCH (10:15)
--- NOTE | 2016-08-30 11:52 | PDOC PROGRESS REPORT ---
Subjective Progress Note for:: 08/30/16 Physical Exam Vital Signs: Temp Pulse Resp BP Pulse Ox 97.9 F 92 16 107/61 96 08/30/16 07:43 08/30/16 07:43 08/30/16 07:43 08/30/16 07:43 08/30/16 07:43 Intake & Output 08/29/16 08/30/16 08/31/16 05:59 06:59 06:59 Intake Total Output Total Balance Weight EXAM GENERAL: NAD; well developed, well nourished; Mild obese; alert and oriented to person, place, time, situation HEENT: normocephalic; oral mucosa moist, neck supple, no LAD, normal ROM RESPIRATORY: no accessory muscle use, no increased WOB, good air entry bilaterally; faint bilateral end expiratory wheezes, but no rales, rhonchi or inspiratory crackles CARDIO: no JVD; irregularly irregular and rate control; no systolic murmur; borderline tachycardia VASCULAR: no carotid bruit; no abdominal bruit; no pallor; 2+ radial, pulse; normal capillary refill GI: soft; nondistended; normal bowel sounds; no hepato spleno megaly; no rebound, rigidity, guarding; nontender NEURO: normal patella reflexes; normal motor function; no dysarthria; no nystagmus; MSK: 5/5 strength; normal ROM hips; ambulatory without assistance; no tenderness EXTREMITIES: no calf tender; no palpable cords in calf; no clubbing, cyanosis , pedal edema PSYCH: normal affect, normal mood SKIN: warm; moist; no petechiae; no telengectasias; no jaundice; no rash Assessment & Plan - Diagnosis (1) Acute exacerbation of chronic obstructive pulmonary disease (COPD) Is this a current diagnosis for this admission?: YesPlan: some improvement, continue IV systemic steroids, empiric antibiotics, nebulizers , supplemental O2. Added cough suppressant with good results. (2) Afib Qualifiers: Atrial fibrillation type: chronic Qualified Code(s): I48.2 - Chronic atrial fibrillation Is this a current diagnosis for this admission?: Yes (3) Acute on chronic respiratory failure with hypoxemia Is this a current diagnosis for this admission?: Yes (4) CAD (coronary artery disease) Qualifiers: Coronary Disease-Associated Artery/Lesion type: [place] artery [place] vs. transplanted heart: [place] heart Associated angina: without angina Qualified Code(s): I25.10 - Atherosclerotic heart disease of [place] coronary artery without angina pectoris Is this a current diagnosis for this admission?: Yes (5) Congestive heart failure (CHF) Qualifiers: Congestive heart failure type: unspecified congestive heart failure type Congestive heart failure chronicity: chronic Qualified Code(s): I50.9 - Heart failure, unspecified Is this a current diagnosis for this admission?: Yes (6) Diabetes mellitus type 2 in nonobese Is this a current diagnosis for this admission?: Yes - Time Time Spent with patient: 15-24 minutes Anticipated discharge: Home Within: within 24 hours
[2016-08-30] MEDS: HYDROCODONE BIT/HOMATROPINE 5-1.5 MG TABLET PO PRN ×2 (14:40→21:39)
[2016-08-30] MEDS: ONDANSETRON HCL INJ/PF 4 MG/2 ML SDV IV PRN (21:39)
[2016-08-31] MEDS: LANSOPRAZOLE 30 MG TAB.RAP.DR PO SCH (06:28)
[2016-08-31] MEDS: SODIUM CHLORIDE NASAL SPRAY 44 ML NASL SCH ×4 (07:44→23:01)
[2016-08-31] MEDS: METFORMIN HCL 500 MG TABLET PO SCH ×2 (07:44→16:50)
[2016-08-31] MEDS: INSULIN LISPRO 100 UNIT/ML 3 ML VIAL SUBCUT PRN ×3 (07:44→16:50)
[2016-08-31] MEDS: IPRATROPIUM/ALBUTEROL 0.5-2.5 MG/3 ML AMPUL NEB SCH ×3 (08:28→23:42)
[2016-08-31] MEDS: ASPIRIN 81 MG TABLET, CHEWABLE PO SCH (09:52)
[2016-08-31] MEDS: LISINOPRIL 10 MG TABLET PO SCH (09:52)
[2016-08-31] MEDS: METHYLPREDNISOLONE INJ 40 MG/1 ML SDV IV SCH ×2 (09:52→23:03)
[2016-08-31] MEDS: DOCUSATE SODIUM 100 MG CAPSULE PO SCH (09:53)
[2016-08-31] MEDS: CEFTRIAXONE 1 GM/D5W RTU 50 ML IV SCH (09:53)
[2016-08-31] MEDS: DIGOXIN 0.25 MG TABLET PO SCH (09:53)
[2016-08-31] MEDS: DILTIAZEM HCL 120 MG CAP.SR.24H PO SCH (09:53)
[2016-08-31] MEDS: DABIGATRAN ETEXILATE 150 MG CAPSULE PO SCH ×2 (09:54→23:03)
[2016-08-31] MEDS ORDERED: GUAIFENESIN 600 MG TABLET.SA PO ONE (12:00)
--- NOTE | 2016-08-31 12:41 | PDOC PROGRESS REPORT ---
Subjective Progress Note for:: 08/31/16 Subjective:: Reason for today's visit; follow-up COPD exacerbation, bacterial bronchitis Hospital course;LEXX KIMBALL is a 61 year old female presents to the emergency department from home with several day history of chest congestion, tightness and wheezing with cough productive of a milky white phlegm. She denies fever, chills, nausea, vomiting, diarrhea, cardiac type chest pain, orthopnea, PND, weight gain or loss, hemoptysis, melena, hematochezia. She has known COPD and wears nocturnal O2 at 2 L continuous and has a home nebulizer machine but is getting no relief from either one. She has a history of chronic atrial fibrillation for which she takes per DEXA and diltiazem. She has a history of congestive heart failure but does not complain of any swelling of her lower extremities are wrapped waking. Evaluation in the emergency department chest x-ray shows questionable atelectasis but she is not improving with nebulizers, IV steroids and supplemental oxygen therefore we were asked to admit for COPD exacerbation. Subjective: she continues to gradually improve but still with some bilat bronchospasm. She notes some nausea after the paroxysms of cough. She denies fevers, chills, vomiting, diarrhea. ROS: per HPI plus a total of 10 systems reviewed, pertinent positives and negatives noted above, remaining systems negative. Physical Exam Vital Signs: Temp Pulse Resp BP Pulse Ox 98.1 F 96 16 141/83 H 94 08/31/16 11:48 08/31/16 11:48 08/31/16 11:48 08/31/16 11:48 08/31/16 11:48 Intake & Output 08/30/16 08/31/16 09/01/16 06:59 06:59 06:59 Intake Total 1875 Output Total 900 Balance 975 Weight Assessment & Plan - Diagnosis (1) Acute exacerbation of chronic obstructive pulmonary disease (COPD) Is this a current diagnosis for this admission?: YesPlan: some improvement, continue IV systemic steroids, empiric antibiotics, scheduled and as needed nebulizers, supplemental O2. Added cough suppressant with good results. probably home in am (2) Afib Qualifiers: Atrial fibrillation type: chronic Qualified Code(s): I48.2 - Chronic atrial fibrillation Is this a current diagnosis for this admission?: YesPlan: Rate controlled and on chronic anticoagulation, continue usual home regimen. (3) Acute on chronic respiratory failure with hypoxemia Is this a current diagnosis for this admission?: YesPlan: Treatment as noted above. Increase activity and Wean O2 as tolerated. (4) CAD (coronary artery disease) Qualifiers: Coronary Disease-Associated Artery/Lesion type: [place] artery [place] vs. transplanted heart: [place] heart Associated angina: without angina Qualified Code(s): I25.10 - Atherosclerotic heart disease of [place] coronary artery without angina pectoris Is this a current diagnosis for this admission?: Yes (5) Congestive heart failure (CHF) Qualifiers: Congestive heart failure type: unspecified congestive heart failure type Congestive heart failure chronicity: chronic Qualified Code(s): I50.9 - Heart failure, unspecified Is this a current diagnosis for this admission?: YesPlan: No clinical evidence for acute heart failure at the bedside. (6) Diabetes mellitus type 2 in nonobese Is this a current diagnosis for this admission?: Yes - Time Time Spent with patient: 15-24 minutes Anticipated discharge: Home Within: within 24 hours
[2016-08-31] MEDS: GUAIFENESIN 600 MG TABLET.SA PO SCH (23:03)
[2016-08-31] MEDS: HYDROCODONE BIT/HOMATROPINE 5-1.5 MG TABLET PO PRN (23:03)
[2016-09-01] MEDS: LANSOPRAZOLE 30 MG TAB.RAP.DR PO SCH ×2 (06:18→22:24)
[2016-09-01] MEDS: IPRATROPIUM/ALBUTEROL 0.5-2.5 MG/3 ML AMPUL NEB SCH ×3 (08:30→23:06)
[2016-09-01] MEDS: SODIUM CHLORIDE NASAL SPRAY 44 ML NASL SCH ×4 (08:34→22:25)
[2016-09-01] MEDS: METFORMIN HCL 500 MG TABLET PO SCH ×2 (08:34→16:29)
[2016-09-01] MEDS: INSULIN LISPRO 100 UNIT/ML 3 ML VIAL SUBCUT PRN ×3 (08:34→17:22)
[2016-09-01] MEDS: DIGOXIN 0.25 MG TABLET PO SCH (10:31)
[2016-09-01] MEDS: DOCUSATE SODIUM 100 MG CAPSULE PO SCH (10:32)
[2016-09-01] MEDS: METHYLPREDNISOLONE INJ 40 MG/1 ML SDV IV SCH (10:32)
[2016-09-01] MEDS: ASPIRIN 81 MG TABLET, CHEWABLE PO SCH (10:32)
[2016-09-01] MEDS: CEFTRIAXONE 1 GM/D5W RTU 50 ML IV SCH (10:33)
[2016-09-01] MEDS: DILTIAZEM HCL 120 MG CAP.SR.24H PO SCH (12:24)
[2016-09-01] MEDS: LISINOPRIL 10 MG TABLET PO SCH (12:25)
[2016-09-01] MEDS: GUAIFENESIN 600 MG TABLET.SA PO SCH ×2 (14:04→22:24)
[2016-09-01] MEDS: DABIGATRAN ETEXILATE 150 MG CAPSULE PO SCH ×2 (14:04→22:25)
--- NOTE | 2016-09-01 16:00 | PDOC PROGRESS REPORT ---
Subjective Progress Note for:: 09/01/16 Subjective:: Patient is feeling a lot better still having some wheezes but comfortable No chest pain she is complaining of dysphagia and odynophagia No nausea or vomiting Physical Exam Vital Signs: Temp Pulse Resp BP Pulse Ox 98.9 F 91 18 113/72 96 09/01/16 11:35 09/01/16 11:35 09/01/16 11:35 09/01/16 11:35 09/01/16 11:35 Intake & Output 08/31/16 09/01/16 09/02/16 00:59 00:59 00:59 Intake Total 1725 1600 Output Total 0 Balance 1725 1600 Weight 86.2 kg General appearance: PRESENT: no acute distress Head exam: PRESENT: atraumatic, normocephalic Eye exam: PRESENT: conjunctiva pink, EOMI, PERRLA. ABSENT: scleral icterus Mouth exam: PRESENT: other - White coating on the tongue Neck exam: ABSENT: carotid bruit, JVD, lymphadenopathy, thyromegaly Respiratory exam: PRESENT: clear to auscultation rylee, wheezes - Bilaterally good air entry. ABSENT: rales, rhonchi Cardiovascular exam: PRESENT: irregular rhythm. ABSENT: diastolic murmur, gallop, systolic murmur Pulses: PRESENT: normal dorsalis pedis pul GI/Abdominal exam: PRESENT: normal bowel sounds, soft. ABSENT: distended, guarding, mass, organolmegaly, rebound, tenderness Extremities exam: PRESENT: full ROM. ABSENT: calf tenderness, clubbing, pedal edema Skin exam: PRESENT: dry, intact, warm. ABSENT: cyanosis, rash Results Laboratory Results: 08/28/16 09:57 Blood Blood Culture - Final Staphylococcus Hominis 08/28/16 11:11 Troponin I < 0.012 Impressions: Chest X-Ray 08/28/16 06:23 IMPRESSION: No significant interval change. Findings as noted above Assessment & Plan - Diagnosis (1) Acute exacerbation of chronic obstructive pulmonary disease (COPD) Is this a current diagnosis for this admission?: Yes (2) Afib Qualifiers: Atrial fibrillation type: chronic Qualified Code(s): I48.2 - Chronic atrial fibrillation Is this a current diagnosis for this admission?: Yes (3) Dysphagia Qualifiers: Dysphagia type: other dysphagia Qualified Code(s): R13.19 - Other dysphagia Is this a current diagnosis for this admission?: Yes (4) Diabetes mellitus type 2 in nonobese Is this a current diagnosis for this admission?: Yes - Time Time Spent with patient: We will treat the patient with nystatin Patient likely has Sally esophagitis and odynophagia associated with it We will increase Prevacid to twice a day and reevaluate needs in a.m. Taper down steroids We will discharge the patient in a.m. if she continues to improve Time Spent with patient: 25-34 minutes
[2016-09-01] MEDS: NYSTATIN 500000 UNIT/5 ML UDCUP PO SCH ×2 (17:22→22:24)
[2016-09-01] MEDS: HYDROCODONE BIT/HOMATROPINE 5-1.5 MG TABLET PO PRN (22:24)
[2016-09-02] MEDS: IPRATROPIUM/ALBUTEROL 0.5-2.5 MG/3 ML AMPUL NEB SCH (08:59)
[2016-09-02] MEDS ORDERED: PREDNISONE 20 MG TABLET PO SCH (10:00)
[2016-09-02] MEDS: NYSTATIN 500000 UNIT/5 ML UDCUP PO SCH (10:03)
[2016-09-02] MEDS: DIGOXIN 0.25 MG TABLET PO SCH (10:04)
[2016-09-02] MEDS: DOCUSATE SODIUM 100 MG CAPSULE PO SCH (10:05)
[2016-09-02] MEDS: METFORMIN HCL 500 MG TABLET PO SCH (10:05)
[2016-09-02] MEDS: GUAIFENESIN 600 MG TABLET.SA PO SCH (10:05)
[2016-09-02] MEDS: LANSOPRAZOLE 30 MG TAB.RAP.DR PO SCH (10:06)
[2016-09-02] MEDS: ASPIRIN 81 MG TABLET, CHEWABLE PO SCH (10:06)
[2016-09-02] MEDS: DABIGATRAN ETEXILATE 150 MG CAPSULE PO SCH (10:07)
[2016-09-02] MEDS: SODIUM CHLORIDE NASAL SPRAY 44 ML NASL SCH (10:07)
[2016-09-02] MEDS: DILTIAZEM HCL 120 MG CAP.SR.24H PO SCH (10:13)
[2016-09-02] MEDS: LISINOPRIL 10 MG TABLET PO SCH (10:15)
[2016-09-02] MEDS: CEFTRIAXONE 1 GM/D5W RTU 50 ML IV SCH (10:15)
[2016-09-02 10:25] VITALS: BP 137/84
--- NOTE | 2016-09-04 13:56 | PDOC DISCHARGE SUMMARY ---
General - Admit/Disc Date/PCP Admission Date/Primary Care Provider: 08/28/16 09:22 BAIODUN HART, Discharge Date: 09/02/16 - Discharge Diagnosis (1) Acute exacerbation of chronic obstructive pulmonary disease (COPD) Is this a current diagnosis for this admission?: Yes (2) Afib Is this a current diagnosis for this admission?: Yes (3) Dysphagia Is this a current diagnosis for this admission?: Yes (4) Diabetes mellitus type 2 in nonobese Is this a current diagnosis for this admission?: Yes - Additional Information Resuscitation Status: Full Code Discharge Diet: Cardiac Discharge Activity: Activity As Tolerated Home Medications: Albuterol Sulfate [Proair HFA] 2 puff IH Q4HP PRN 08/28/16 Albuterol Sulfate [Ventolin 0.042% Neb 1.25 mg/3 mL Ampul] 3 ml NEB RTQ4HP PRN 08/28/16 Aspirin [Adult Low Dose Aspirin EC] 81 mg PO DAILY 08/28/16 Dabigatran Etexilate Mesylate [Pradaxa 150 mg Capsule] 150 mg PO BID 08/28/16 Digoxin [Lanoxin 0.25 mg Tablet] 0.25 mg PO DAILY 08/28/16 Diltiazem HCl [Diltiazem ER] 180 mg PO DAILY 08/28/16 Fluticasone Propionate [Flonase Nasal [place] 50 Mcg/[place] 16 gm] 2 spray NASL DAILY 08/28/16 Furosemide [Lasix] 40 mg PO DAILY PRN 08/28/16 Lisinopril [Zestril] 2.5 mg PO DAILY 08/28/16 Melatonin 10 mg PO QPM 08/28/16 Metformin HCl [Glucophage] 500 mg PO BIDBS 08/28/16 Multivitamin [Multivitamins] 1 cap PO DAILY 08/28/16 Sennosides/Docusate 8.6-50 mg [Senna Plus Tablet] 1 tab PO DAILY 08/28/16 Umeclidinium Brm/Vilanterol Tr [Anoro Ellipta 62.5-25 Mcg INH] 1 puff IH DAILY 08/28/16 Levofloxacin [Levaquin 750 mg Tablet] 750 mg PO DAILY #5 tab 09/02/16 Nystatin [Mycostatin 500,000 Unit/5 ml Susp Udcup] 500,000 unit PO QID #200 ml 09/02/16 Pantoprazole Sodium [Protonix] 40 mg PO QHS #30 tablet. 09/02/16 Prednisone [Deltasone 20 mg Tablet] 40 mg PO DAILY #15 tablet 09/02/16 Sucralfate [Carafate Susp 1 Gm/10 Ml Udcup] 1 gm PO ACHS #400 ml 09/02/16 History of Present Illness Patient complains of: shortness of breath History of Present Illness: LEXX KIMBALL is a 61 year old female presents to the emergency department from home with several day history of chest congestion, tightness and wheezing with cough productive of a milky white phlegm. She denies fever, chills, nausea, vomiting, diarrhea, cardiac type chest pain, orthopnea, PND, weight gain or loss, hemoptysis, melena, hematochezia. She has known COPD and wears nocturnal O2 at 2 L continuous and has a home nebulizer machine but is getting no relief from either one. She has a history of chronic atrial fibrillation for which she takes per DEXA and diltiazem. She has a history of congestive heart failure but does not complain of any swelling of her lower extremities are wrapped waking. Evaluation in the emergency department chest x-ray shows questionable atelectasis but she is not improving with nebulizers, IV steroids and supplemental oxygen therefore we were asked to admit for COPD exacerbation. Hospital Course Hospital Course: Patient was admitted with increasing shortness of breath and COPD Exacerbation She was treated with steroids , nebs , antibiotics and improved greatly At time of discharge she did not require supplemental O2 Physical Exam Vital Signs: Temp Pulse Resp BP Pulse Ox 98.6 F 94 20 137/84 H 93 09/02/16 10:21 09/02/16 10:21 09/02/16 10:21 09/02/16 10:21 09/02/16 10:21 Intake & Output 09/03/16 09/04/16 09/05/16 00:59 00:59 00:59 Intake Total 250 Balance 250 General appearance: PRESENT: no acute distress, well-developed, well-nourished Head exam: PRESENT: atraumatic, normocephalic Eye exam: PRESENT: conjunctiva pink, EOMI, PERRLA. ABSENT: scleral icterus Ear exam: PRESENT: normal external ear exam Mouth exam: PRESENT: moist, tongue midline Neck exam: ABSENT: carotid bruit, JVD, lymphadenopathy, thyromegaly Respiratory exam: PRESENT: clear to auscultation rylee. ABSENT: rales, rhonchi, wheezes Cardiovascular exam: PRESENT: RRR. ABSENT: diastolic murmur, rubs, systolic murmur Pulses: PRESENT: normal dorsalis pedis pul Vascular exam: PRESENT: normal capillary refill GI/Abdominal exam: PRESENT: normal bowel sounds, soft. ABSENT: distended, guarding, mass, organolmegaly, rebound, tenderness Rectal exam: PRESENT: deferred Extremities exam: PRESENT: full ROM. ABSENT: calf tenderness, clubbing, pedal edema Neurological exam: PRESENT: alert, awake, oriented to person, oriented to place , oriented to time, oriented to situation, CN II-XII grossly intact. ABSENT: motor sensory deficit Psychiatric exam: PRESENT: appropriate affect, normal mood. ABSENT: homicidal ideation, suicidal ideation Skin exam: PRESENT: dry, intact, warm. ABSENT: cyanosis, rash Results Laboratory Results: 08/28/16 11:11 Troponin I < 0.012 EKG Comments: ATRIAL FIBRILLATION, V-RATE 85-123 [IRBBB] . INCOMPLETE RIGHT BUNDLE BRANCH BLOCK [LVOLF] . LOW VOLTAGE IN FRONTAL LEADS [REPLA] . NONSPECIFIC REPOL ABNORMALITY, LATERAL LEADS Impressions: Chest X-Ray 08/28/16 06:23 IMPRESSION: No significant interval change. Findings as noted above Plan Discharge Plan: patient was discharged on levaquin and steroid taper to follow up with primary care physician
== END 2016-09-02 11:33 | disposition home or self-care (01) | DRG 189 ==
LOC: ER 05:30 → EH 09:22 → 4S 12:46 → 5 23:00
PROVIDERS: ADMIT Internal Medicine; ATTEND Internal Medicine
DX: J96.21 Acute and chronic respiratory failure with hypoxia (principal); J44.1 Chronic obstructive pulmonary disease with (acute) exacerbation; B37.81 Candidal esophagitis; E87.6 Hypokalemia; I48.2 Chronic atrial fibrillation; I11.0 Hypertensive heart disease with heart failure; I50.9 Heart failure, unspecified; I25.10 Atherosclerotic heart disease of native coronary artery without angina pectoris; R13.19 Other dysphagia; R01.1 Cardiac murmur, unspecified; E11.9 Type 2 diabetes mellitus without complications; F17.200 Nicotine dependence, unspecified, uncomplicated; Z99.81 Dependence on supplemental oxygen; Z79.84 Long term (current) use of oral hypoglycemic drugs; Z86.010 Personal history of colon polyps; Z98.51 Tubal ligation status; Z82.49 Family history of ischemic heart disease and other diseases of the circulatory system; Z83.3 Family history of diabetes mellitus; Z80.9 Family history of malignant neoplasm, unspecified; Z79.82 Long term (current) use of aspirin; Z79.899 Other long term (current) drug therapy; Z88.8 Allergy status to other drugs, medicaments and biological substances; Z88.0 Allergy status to penicillin
CPT/HCPCS: 36415; 71020; 80053; 80162; 82550; 82553; 82803; 82962; 83690; 83735; 84484; 85025; 87040; 87077; 87186; 87804; 93005; 93010; 94640; 96365; 96372; 96375; 99285; J0696; J1815; J2405; J2920; J2930; J3105; J3475; J3490; J7512; J7620

== ENCOUNTER 2016-10-27 02:47 | Emergency (ER) | payer BC ==
[2016-10-27] MEDS ORDERED: ACETAMINOPHEN 325 MG TABLET PO ONE (03:32)
[2016-10-27] MEDS ORDERED: ONDANSETRON 4 MG TAB.RAPDIS PO ONE (03:32)
--- NOTE | 2016-10-27 03:36 | ER Document Report ---
ED Blood Sugar Problem - General Chief Complaint: High Blood Sugar Stated Complaint: BLOOD SUGAR PROBLEM Time Seen by Provider: 10/27/16 03:16 Mode of Arrival: Ambulatory Information source: Patient Notes: 61-year-old female presents to ED for elevated blood sugar tonight at 10 PM it was 200 2 AM it was 317 and we took it in the emergency room and was 224. She states she was seen at the urgent care today and treated for COPD breathing problems and they gave her Solu-Medrol around 4:30 5:00 as well as breathing treatments. She states she was placed on prednisone for the next 5 days. TRAVEL OUTSIDE OF THE [place] IN LAST 30 DAYS: No - HPI Onset: This evening Quality of pain: Achy Severity: Mild Pain Level: 2 Associated symptoms: Nausea, Other - Headache Similar symptoms previously: Yes Recently seen / treated by doctor: Yes - Related Data Allergies/Adverse Reactions: ampicillin [Ampicillin] Allergy (Verified 08/28/16 07:45) Penicillins Allergy (Verified 08/28/16 07:45) tetracycline [Tetracycline] Allergy (Verified 08/28/16 07:45) cillins Allergy (Uncoded 08/28/16 07:45) Past Medical History - General Information source: Patient - Social History Smoking Status: Current Every Day Smoker Cigarette use (# per day): Yes Smoking Education Provided: Yes - (2 minutes Frequency of alcohol use: None Drug Abuse: None Lives with: Spouse/Significant other Family History: CAD, DM, Malignancy Patient has suicidal ideation: No Patient has homicidal ideation: No - Past Medical History Cardiac Medical History: Reports: Hx Atrial Fibrillation, Hx Congestive Heart Failure, Hx Coronary Artery Disease, Hx Hypertension, Hx Heart Murmur Pulmonary Medical History: Reports: Hx Asthma, Hx Bronchitis, Hx COPD, Hx Pneumonia Denies: Hx Tuberculosis EENT Medical History: Reports: None Neurological Medical History: Reports: None Endocrine Medical History: Reports: Hx Diabetes Mellitus Type 2 - diet controlled and metformin Renal/ Medical History: Reports: None Malignancy Medical History: Reports: None GI Medical History: Reports: Hx Diverticulitis, Hx Colonoscopy, Hx Endoscopy Musculoskeltal Medical History: Reports None Skin Medical History: Reports None Psychiatric Medical History: Reports: None Traumatic Medical History: Reports: None Infectious Medical History: Reports: None Past Surgical History: Reports: Hx Bowel Surgery - PYLORIC STENOSIS, Hx Cardiac Catheterization - x3, Hx Cardiac Surgery - ASD closure, Hx Section - x2 1980s, Hx Tubal Ligation, Other - polyp removed - Immunizations Immunizations up to date: Yes Hx Diphtheria, Pertussis, Tetanus Vaccination: Yes Hx Pneumococcal Vaccination: 06/21/14 Review of Systems - Review of Systems Constitutional: No symptoms reported EENT: No symptoms reported Cardiovascular: No symptoms reported Respiratory: No symptoms reported Gastrointestinal: Nausea Genitourinary: No symptoms reported Female Genitourinary: No symptoms reported Musculoskeletal: No symptoms reported Skin: No symptoms reported Hematologic/Lymphatic: No symptoms reported Neurological/Psychological: Headaches Physical Exam - Vital signs Vitals: Temp Pulse Resp BP Pulse Ox 97.4 F 99 18 134/87 H 93 10/27/16 02:52 10/27/16 02:52 10/27/16 02:52 10/27/16 02:52 10/27/16 02:52 Interpretation: Normal - General General appearance: Appears well, Alert - HEENT Head: Normocephalic, Atraumatic Eyes: Normal Pupils: PERRL - Respiratory Respiratory status: No respiratory distress Chest status: Nontender Breath sounds: Normal Chest palpation: Normal - Cardiovascular Rhythm: Regular Heart sounds: Normal auscultation Murmur: No - Abdominal Inspection: Normal Distension: No distension Bowel sounds: Normal Tenderness: Nontender Organomegaly: No organomegaly - Back Back: Normal, Nontender - Extremities General upper extremity: Normal inspection, Nontender, Normal color, Normal ROM , Normal temperature General lower extremity: Normal inspection, Nontender, Normal color, Normal ROM , Normal temperature, Normal weight bearing. No: Willis's sign - Neurological Neuro grossly intact: Yes Cognition: Normal Orientation: AAOx4 [place] Coma Scale Eye Opening: Spontaneous [place] Coma Scale Verbal: Oriented [place] Coma Scale Motor: Obeys Commands [place] Coma Scale Total: 15 Speech: Normal Motor strength normal: LUE, RUE, LLE, RLE Sensory: Normal - Psychological Associated symptoms: Normal affect, Normal mood - Skin Skin Temperature: Warm Skin Moisture: Dry Skin Color: Normal Course - Re-evaluation Re-evalutation: 10/27/16 06:10 Patient states she's feeling much better after the Zofran and Tylenol and ibuprofen. She states she is just very wide awake and has not slept and needs something for her sleep. Ordered her some Benadryl her significant other is at the bedside to drive her home. Patient to follow-up with the urgent care if she has any increase in her swelling due to her CHF with the steroid she is on for her COPD. Discussed the fact that her blood sugars will be a little elevated with the steroids and she will need to follow up with her urgent care for elevated sugars. - Vital Signs Vital signs: Temp Pulse Resp BP Pulse Ox 97.4 F 99 18 134/87 H 93 10/27/16 02:52 10/27/16 02:52 10/27/16 02:52 10/27/16 02:52 10/27/16 02:52 - Laboratory Result Diagrams: 10/27/16 04:49 10/27/16 04:49 Laboratory results interpreted by me: 10/27/16 10/27/16 10/27/16 03:21 04:49 04:49 RDW 14.7 H Seg Neutrophils % 85.6 H Monocytes % 1.0 L Glucose 202 H POC Glucose 224 H Discharge - Discharge Clinical Impression: Diabetes mellitus type 2 in nonobese Headache Qualifiers: Headache type: unspecified Headache chronicity pattern: unspecified pattern Intractability: not intractable Qualified Code(s): R51 - Headache Disposition: HOME, SELF-CARE Additional Instructions: DIABETES: You have an abnormally high blood sugar, suspicious for diabetes. Not all high blood sugar requires long-term treatment. High blood sugar can be due to medications, , or the stress of illness. (These cases are "borderline diabetes.") If the doctor feels your high blood sugar might get better with time, you may not require treatment now. It's very important that you follow through. Uncontrolled high blood sugar leads to early heart disease, strokes, nerve damage, eye damage, and kidney damage. All diabetics should follow a diet designed to control the blood sugar. Overweight diabetics should exercise regularly and lose weight. If this is not sufficient to control the blood sugar, pills or insulin shots are necessary. Younger people who develop diabetes almost always require insulin daily. Home testing of blood sugars or urine sugar is required. Diabetic teaching is available to help you figure insulin doses and monitor the blood sugar. Call the physician if there is faintness, excess sleepiness, or very rapid breathing. If hypoglycemia (LOW blood sugar) develops, symptoms are shakiness, weakness, sweating, and confusion. In this case, you should eat or drink something with sugar at once. HEADACHE: The physician does not feel that the headache you are experiencing has a serious underlying cause. Most headaches are due to emotional stress, with resultant muscle tension (tension headache). Occasionally, headaches are secondary to changes in the blood vessels of the scalp (vascular headache and migraine headache). Sometimes, a headache is the first symptom of another developing illness, such as a viral infection. You have no evidence of stroke, bleeding, meningitis, or other serious cause of your headache. The treatment of headaches varies with the severity and cause of the pain. Not all headaches need pain shots. In fact, there is evidence that using narcotics for headaches may make them worse in the long run. The physician will determine the therapy that's in your best interest. If you develop a fever, if the headache is different from any you've previously experienced, or if the headache progressively worsens, then call your physician at once or go to the emergency room. USE OF DIPHENHYDRAMINE: Diphenhydramine (Benadryl) is an antihistamine and has been recommended to help treat your headache and to prevent side effects of other medications used to treat headaches. The medication can be repeated four times daily. Age Elixir (12.5 mg/tsp) 25 mg pill adult 1-2 tabs Antihistamines may cause drowsiness, especially with the first dose. Do not operate machinery or drive while under the effects of the medication. Do not combine the medication with alcohol, or with any other medication without talking to your doctor. ANT[place]AUSEA MEDICATION: You have been given a medication to suppress nausea and vomiting. This type of medication can be given as a shot, pill, or suppository. It will usually last for many hours. Pills and shots usually last six to eight hours, suppositories last about 12 hours. For the typical illness, only one or two doses of the medication may be necessary. Mild lightheadedness may occur. This type of medicine can cause drowsiness. Do not drive or operate dangerous machinery while under its influence. Do not mix with alcohol. See your doctor at once if you have muscle spasms or tightness, or uncontrollable motions (particularly of the neck, mouth, or jaw). Persistent vomiting or severe lightheadedness should also be evaluated by the physician. Acetaminophen Acetaminophen may be taken for pain relief or fever control. It's much safer than aspirin, offering a wider range of "safe" dosages. It is safe during . Some brand names are Tylenol, Panadol, Datril, Anacin 3, Tempra, and Liquiprin. Acetaminophen can be repeated every four hours. The following are maximum recommended dosages: WEIGHT Dose Drops Elixir Chewable( 80mg) (LBS.) drprs=droppers tsp=teaspoon 6 40 mg .4 ml (1/2) 6-11 80 mg .8 ml (full) 1/2 tsp 1 tab 12-16 120 mg 1 1/2 drprs 3/4 tsp 1 1/2 tabs 17-23 160 mg 2 drprs 1 tsp 2 tabs 24-30 240 mg 3 drprs 1 1/2 tsp 3 tabs 30-35 320 mg 2 tsp 4 tabs 36-41 360 mg 2 1/4 tsp 4 1 /2 tabs 42-47 400 mg 2 1/2 tsp 5 tabs 48-53 480 mg 3 tsp 6 tabs 54-59 520 mg 3 1/4 tsp 6 1 /2 tabs 60-64 560 mg 3 1/2 tsp 7 tabs 65-70 600 mg 3 3/4 tsp 7 1 /2 tabs 71-76 640 mg 4 tsp 8 tabs 77-82 720 mg 4 1/2 tsp 9 tabs 83-88 800 mg 5 tsp 10 tabs >89 pounds or adults 650 mg to 900 mg Acetaminophen can be repeated every four hours. Maximum daily dose not to exceed 4000 mg. These maximum recommended dosages are slightly higher than the dosages written on the product container, but these dosages are very safe and well below the toxic dosage for acetaminophen. Please be aware that the steroids that urgent care placed you on will make your blood sugar higher than your normal. Please control your diet decreased your carbohydrates increase your fruits and vegetables. Please be sure to keep your diet for your CHF and other medical problems as well. Please call the urgent care if you have any increase in swelling or edema due to the steroid you on. FOLLOW-UP CARE: If you have been referred to a physician for follow-up care, call the physician s office for an appointment as you were instructed or within the next two days. If you experience worsening or a significant change in your symptoms, notify the physician immediately or return to the Emergency Department at any time for re-evaluation. Forms: Elevated Blood Pressure, Smoking Cessation Education
[2016-10-27 05:01] LABS: ABSOLUTE MONOCYTES (AUTO) 0.1 10^3/uL (0.1-1.4); ABSOLUTE NEUT (AUTO) 6.8 10^3/uL (1.7-8.2); BASOPHILS % (AUTO) 0.3 % (0-2); HEMATOCRIT 42.8 % (36.0-47.0); HEMOGLOBIN 14.3 g/dL (12.0-15.5); HGB HCT DIFFERENCE 0.1; LYMPHOCYTES % (AUTO) 13.1 % (13-45); MEAN CORPUSCULAR HEMOGLOBIN 30.2 pg (27.0-33.4); MEAN CORPUSCULAR HGB CONC 33.4 g/dL (32.0-36.0); MEAN CORPUSCULAR VOLUME 90 fl (80-97); RED BLOOD COUNT 4.74 10^6/uL (3.72-5.28); RED CELL DISTRIBUTION WIDTH 14.7 % (11.5-14.0); SEGMENTED NEUTROPHILS % (AUTO) 85.6 % (42-78)
[2016-10-27] MEDS ORDERED: IBUPROFEN 600 MG TABLET PO ONE (05:19)
[2016-10-27 05:22] LABS: ALANINE AMINOTRANSFERASE 30 U/L (9-52); ALBUMIN 4.5 g/dL (3.5-5.0); ALKALINE PHOSPHATASE 59 U/L (38-126); ANION GAP 13 (5-19); ASPARTATE AMINO TRANSFERASE 28 U/L (14-36); BILIRUBIN,DIRECT 0.3 mg/dL (0.0-0.4); BILIRUBIN,TOTAL 0.5 mg/dL (0.2-1.3); BLOOD UREA NITROGEN 13 mg/dL (7-20); CALCIUM 10.1 mg/dL (8.4-10.2); CARBON DIOXIDE 24 mmol/L (22-30); CHLORIDE 104 mmol/L (98-107); CREATININE RESULT 0.55 mg/dL (0.52-1.25); GLUCOSE 202 mg/dL (75-110); POTASSIUM 4.5 mmol/L (3.6-5.0); SODIUM 141.4 mmol/L (137-145); TOTAL PROTEIN 6.9 g/dL (6.3-8.2)
[2016-10-27] MEDS ORDERED: DIPHENHYDRAMINE HCL 50 MG CAPSULE PO ONE (06:04)
[2016-10-27 06:48] VITALS: BP 127/79
== END 2016-10-27 06:30 | disposition home or self-care (01) ==
LOC: ER 02:47
DX: E11.9 Type 2 diabetes mellitus without complications (principal); R51 Headache; F17.210 Nicotine dependence, cigarettes, uncomplicated; I48.91 Unspecified atrial fibrillation; I50.9 Heart failure, unspecified; I11.0 Hypertensive heart disease with heart failure; Z98.51 Tubal ligation status; Z88.0 Allergy status to penicillin
CPT/HCPCS: 99284; 36415; 82962; 85025; 80053; S0119

== ENCOUNTER → 2016-12-15 | Outpatient (CLI) | payer BC ==
[2016-12-15 12:26] LABS: ALANINE AMINOTRANSFERASE 26 U/L (9-52); ALBUMIN 4.1 g/dL (3.5-5.0); ALKALINE PHOSPHATASE 73 U/L (38-126); ANION GAP 14 (5-19); ASPARTATE AMINO TRANSFERASE 19 U/L (14-36); BILIRUBIN,DIRECT 0.2 mg/dL (0.0-0.4); BILIRUBIN,TOTAL 0.5 mg/dL (0.2-1.3); BLOOD UREA NITROGEN 16 mg/dL (7-20); CALCIUM 9.6 mg/dL (8.4-10.2); CARBON DIOXIDE 23 mmol/L (22-30); CHLORIDE 104 mmol/L (98-107); CREATININE RESULT 0.61 mg/dL (0.52-1.25); GLUCOSE 131 mg/dL (75-110); POTASSIUM 4.2 mmol/L (3.6-5.0); SODIUM 140.7 mmol/L (137-145); TOTAL PROTEIN 6.8 g/dL (6.3-8.2)
== END ==
LOC: OD 11:04
PROVIDERS: ATTEND Internal Medicine
DX: E11.9 Type 2 diabetes mellitus without complications (principal)
CPT/HCPCS: 36415; 80053; 83036

== ENCOUNTER 2016-12-22 15:54 | Inpatient (IN) | payer BC ==
--- NOTE | 2016-12-22 16:15 | ER Document Report ---
ED Medical Screen (RME) - General Chief Complaint: Shortness Of Breath Stated Complaint: SHORTNESS OF BREATH Time Seen by Provider: 12/22/16 16:05 Notes: The patient is a 61-year-old female, past medical history CHF, COPD, A. fib, presents with 2 days of increasing shortness of breath and orthopnea. She usually uses two pillows at night, but last night she could only lay down for about an hour and then would have to sit up for 5 hours. She did not take any of her 20 mg Lasix as needed, but she took 2 of her albuterol nebs. She also feels like there is swelling around her ankles. Denies chest pain, fevers, hemoptysis, back pain or abdominal pain. PE: Tachycardic. Mild bibasilar rales. Coarse breath sounds diffusely. 1+ ankle edema B/L. I have greeted and performed a rapid initial assessment of this patient. A comprehensive ED assessment and evaluation of the patient, analysis of test results and completion of the medical decision making process will be conducted by additional ED providers. TRAVEL OUTSIDE OF THE [place] IN LAST 30 DAYS: No - Related Data Allergies/Adverse Reactions: ampicillin [Ampicillin] Allergy (Verified 08/28/16 07:45) Penicillins Allergy (Verified 08/28/16 07:45) tetracycline [Tetracycline] Allergy (Verified 08/28/16 07:45) cillins Allergy (Uncoded 08/28/16 07:45) Past Medical History - Past Medical History Cardiac Medical History: Reports: Hx Atrial Fibrillation, Hx Congestive Heart Failure, Hx Coronary Artery Disease, Hx Hypertension, Hx Heart Murmur Pulmonary Medical History: Reports: Hx Asthma, Hx Bronchitis, Hx COPD, Hx Pneumonia Denies: Hx Tuberculosis Neurological Medical History: Denies: Hx Seizures Endocrine Medical History: Reports: Hx Diabetes Mellitus Type 2 - diet controlled and metformin Renal/ Medical History: Denies: Hx Peritoneal Dialysis GI Medical History: Reports: Hx Diverticulitis, Hx Colonoscopy, Hx Endoscopy Musculoskeltal Medical History: Denies Hx Arthritis Psychiatric Medical History: Denies: Hx Depression Past Surgical History: Reports: Hx Bowel Surgery - PYLORIC STENOSIS, Hx Cardiac Catheterization - x3, Hx Cardiac Surgery - ASD closure, Hx Section - x2 1980s, Hx Tubal Ligation, Other - polyp removed. Denies: Hx Hysterectomy, Hx Pacemaker - Immunizations Immunizations up to date: Yes Hx Diphtheria, Pertussis, Tetanus Vaccination: Yes Physical Exam - Vital signs Vitals: Temp Pulse BP Pulse Ox 99.0 F 109 H 101/81 93 12/22/16 15:59 12/22/16 15:59 12/22/16 15:59 12/22/16 15:59 Course - Vital Signs Vital signs: Temp Pulse Resp BP Pulse Ox 99.0 F 109 H 101/81 93 12/22/16 15:59 12/22/16 15:59 12/22/16 15:59 12/22/16 15:59
--- NOTE | 2016-12-22 16:44 | ER Document Report ---
ED Respiratory Problem - General Chief Complaint: Shortness Of Breath Stated Complaint: SHORTNESS OF BREATH Time Seen by Provider: 12/22/16 16:05 Mode of Arrival: Ambulatory Information source: Patient TRAVEL OUTSIDE OF THE [place] IN LAST 30 DAYS: No - HPI Patient complains to provider of: Cough, Short of breath Onset: Yesterday Duration: Continuous Initiating Event: Other - NO KNOWN INCIDENT Quality of pain: Sharp - PLEURITIC Severity: Moderate Context: Hx CHF, Hx COPD Short of Breath: Moderate Chest pain/discomfort: Right - LATERAL Cough: Nonproductive Sputum amount: None At home treatment: Bronchodilators Associated symptoms: Cough, Orthopnea, Short of breath. denies: Chills, Fever Worsened by: RECUMBENCY, ACTIVITY Similar symptoms previously: Yes - NOT RECENT Recently seen / treated by doctor: No - Related Data Allergies/Adverse Reactions: ampicillin [Ampicillin] Allergy (Verified 08/28/16 07:45) Penicillins Allergy (Verified 08/28/16 07:45) tetracycline [Tetracycline] Allergy (Verified 08/28/16 07:45) cillins Allergy (Uncoded 08/28/16 07:45) Past Medical History - General Information source: Patient - Social History Smoking Status: Former Smoker Cigarette use (# per day): No Chew tobacco use (# tins/day): No Frequency of alcohol use: None Drug Abuse: None Lives with: Spouse/Significant other Family History: CAD, DM, Malignancy Patient has suicidal ideation: No Patient has homicidal ideation: No - Past Medical History Cardiac Medical History: Reports: Hx Atrial Fibrillation, Hx Congestive Heart Failure, Hx Coronary Artery Disease, Hx Hypertension, Hx Heart Murmur Pulmonary Medical History: Reports: Hx Asthma, Hx Bronchitis, Hx COPD, Hx Pneumonia Denies: Hx Tuberculosis Neurological Medical History: Denies: Hx Seizures Endocrine Medical History: Reports: Hx Diabetes Mellitus Type 2 - diet controlled and metformin Renal/ Medical History: Denies: Hx Peritoneal Dialysis GI Medical History: Reports: Hx Diverticulitis, Hx Colonoscopy, Hx Endoscopy Musculoskeltal Medical History: Denies Hx Arthritis Psychiatric Medical History: Denies: Hx Depression Past Surgical History: Reports: Hx Bowel Surgery - PYLORIC STENOSIS, Hx Cardiac Catheterization - x3, Hx Cardiac Surgery - ASD closure, Hx Section - x2 1980s, Hx Tubal Ligation, Other - polyp removed. Denies: Hx Hysterectomy, Hx Pacemaker - Immunizations Immunizations up to date: Yes Hx Diphtheria, Pertussis, Tetanus Vaccination: Yes Hx Pneumococcal Vaccination: 06/21/14 Review of Systems - Review of Systems Constitutional: No symptoms reported. denies: Chills, Fever EENT: No symptoms reported Cardiovascular: No symptoms reported Respiratory: No symptoms reported, Cough, Short of breath, Wheezing Gastrointestinal: No symptoms reported Genitourinary: No symptoms reported Female Genitourinary: Post menopausal Musculoskeletal: No symptoms reported Skin: No symptoms reported Neurological/Psychological: No symptoms reported Physical Exam - Vital signs Vitals: Temp Pulse BP Pulse Ox 99.0 F 109 H 101/81 93 12/22/16 15:59 12/22/16 15:59 12/22/16 15:59 12/22/16 15:59 Interpretation: Tachycardic. No: Hypotensive, Hypoxic - General General appearance: Appears well, Alert In distress: None - HEENT Head: Normocephalic Eyes: Normal Conjunctiva: Normal Ears: Normal Nasal: Normal Mouth/Lips: Normal Mucous membranes: Normal Pharynx: Normal Neck: Normal - Respiratory Respiratory status: No respiratory distress Chest status: Nontender Breath sounds: Wheezing - MILD, EXP., ALL JULIEN - Cardiovascular Rhythm: Irregularly irregular Heart sounds: Normal auscultation Murmur: No - Abdominal Inspection: Normal Bowel sounds: Normal - Extremities General upper extremity: Normal inspection General lower extremity: Normal inspection. No: Edema - Neurological Neuro grossly intact: Yes Cognition: Normal Orientation: AAOx4 - Psychological Associated symptoms: Normal affect, Normal mood - Skin Skin Temperature: Warm Skin Moisture: Dry Skin Color: Normal Skin Turgor: Elastic Course - Re-evaluation Re-evalutation: 12/22/16 20:13 Patient states she feels a little better. Oxygen saturation is about 90%. There are still some end expiratory wheezes in all lung julien. - Vital Signs Vital signs: Temp Pulse Resp BP Pulse Ox 99.0 F 109 H 20 119/67 95 12/22/16 15:59 12/22/16 15:59 12/22/16 22:01 12/22/16 22:01 12/22/16 22:01 - Laboratory Result Diagrams: 12/22/16 16:55 12/22/16 16:55 Laboratory results interpreted by me: 12/22/16 12/22/16 12/22/16 16:55 16:55 16:55 VBG pH 7.47 H Glucose 121 H Lactic Acid 3.5 H Creatine Kinase 227 H 12/22/16 21:46 VBG pH Glucose Lactic Acid 2.5 H Creatine Kinase - Diagnostic Test Radiology reviewed: Image reviewed, Reports reviewed - EKG Interpretation by Me EKG shows normal: abnormal: Sinus rhythm Rhythm: A.Fib [place]/QRS: RBBB - INCOMPLETE Voltage: Decreased voltage - FRONTAL LEADS When compared to previous EKG there are: No significant change - Consults DR. HSIEH Time consulted: 22:26 Consulted provider: will come to ER Discharge - Discharge Clinical Impression: Acute exacerbation of chronic obstructive pulmonary disease (COPD), Hypoxemia Condition: Fair Disposition: ADMITTED INPATIENT Admitting Provider: Hospitalist Unit Admitted: [facility]
--- NOTE | 2016-12-22 17:06 | RADIOLOGY REPORT (SQ) ---
EXAM DESCRIPTION: CHEST PA/LAT COMPLETED DATE/TIME: 12/22/2016 4:43 pm REASON FOR STUDY: SOB COMPARISON: Chest x-ray dated August [address] scan dated March 2016 EXAM PARAMETERS: NUMBER OF VIEWS: two views TECHNIQUE: Digital Frontal and Lateral radiographic views of the chest acquired. RADIATION DOSE: NA LIMITATIONS: none FINDINGS: LUNGS AND PLEURA: No opacities, masses or pneumothorax. No pleural effusion. Chronic appe aring changes are again identified. I cannot exclude a component of obstructive lung disease. MEDIASTINUM AND HILAR STRUCTURES: Again there is some prominence of the hilar regions unchanged from the previous and related to enlargement of the central pulmonary arteries when correlated with the est CT scan. HEART AND VASCULAR STRUCTURES: The configuration of the heart and mediastinal structures is unchanged . BONES: No acute changes. HARDWARE: ASD closure device is again identified. OTHER: No other significant finding. IMPRESSION: No significant interval change. No acute findings. Other findings as noted above TECHNICAL DOCUMENTATION: JOB ID: [id number] [employer]- All Rights Reserved
[2016-12-22] MEDS ORDERED: OXYCODONE HCL IR 5 MG TABLET PO ONE (17:09)
[2016-12-22 17:23] LABS: VENOUS BLOOD BASE EXCESS 3.3 mmol/L; VENOUS BLOOD HCO3 26.9 mmol/L (20-32); VENOUS BLOOD PCO2 37.5 mmHg (35-63); VENOUS BLOOD PH 7.47 (7.30-7.42)
[2016-12-22 17:24] LABS: ABSOLUTE EOSINOPHILS # (AUTO) 0.2 10^3/uL (0.0-0.6); ABSOLUTE LYMPHOCYTES (AUTO) 1.5 10^3/uL (0.5-4.7); ABSOLUTE MONOCYTES (AUTO) 0.6 10^3/uL (0.1-1.4); ABSOLUTE NEUT (AUTO) 4.2 10^3/uL (1.7-8.2); BASOPHILS % (AUTO) 0.3 % (0-2); EOSINOPHILS % (AUTO) 3.2 % (0-6); HEMATOCRIT 41.7 % (36.0-47.0); HEMOGLOBIN 13.4 g/dL (12.0-15.5); HGB HCT DIFFERENCE -1.5; LYMPHOCYTES % (AUTO) 23.4 % (13-45); MEAN CORPUSCULAR HEMOGLOBIN 29.2 pg (27.0-33.4); MEAN CORPUSCULAR HGB CONC 32.2 g/dL (32.0-36.0); MEAN CORPUSCULAR VOLUME 91 fl (80-97); MONOCYTES % (AUTO) 8.6 % (3-13); RED CELL DISTRIBUTION WIDTH 13.9 % (11.5-14.0); SEGMENTED NEUTROPHILS % (AUTO) 64.5 % (42-78); WHITE BLOOD COUNT 6.4 10^3/uL (4.0-10.5)
[2016-12-22 17:43] LABS: ALANINE AMINOTRANSFERASE 36 U/L (9-52); ALBUMIN 3.9 g/dL (3.5-5.0); ALKALINE PHOSPHATASE 65 U/L (38-126); ANION GAP 12 (5-19); ASPARTATE AMINO TRANSFERASE 27 U/L (14-36); BILIRUBIN,DIRECT 0.3 mg/dL (0.0-0.4); BILIRUBIN,TOTAL 0.4 mg/dL (0.2-1.3); BLOOD UREA NITROGEN 10 mg/dL (7-20); CALCIUM 8.6 mg/dL (8.4-10.2); CARBON DIOXIDE 26 mmol/L (22-30); CHLORIDE 100 mmol/L (98-107); CREATINE KINASE 227 U/L (30-135); CREATININE RESULT 0.65 mg/dL (0.52-1.25); GLUCOSE 121 mg/dL (75-110); POTASSIUM 3.8 mmol/L (3.6-5.0); TOTAL PROTEIN 6.4 g/dL (6.3-8.2)
[2016-12-22 17:54] LABS: TROPONIN I 0.016 ng/mL
[2016-12-22] MEDS ORDERED: IPRATROPIUM/ALBUTEROL 0.5-2.5 MG/3 ML AMPUL NEB ONE (18:05)
[2016-12-22] MEDS ORDERED: PREDNISONE 20 MG TABLET PO ONE (18:05)
[2016-12-22] MEDS ORDERED: ALBUTEROL SULFATE 0.083% NEB 2.5 MG/3 ML AMPUL NEB ONE ×2 (19:47→21:37)
--- NOTE | 2016-12-22 20:29 | EKG REPORT ---
SEVERITY:- ABNORMAL ECG - ATRIAL FIBRILLATION, V-RATE 79-130 LOW VOLTAGE IN FRONTAL LEADS CONSIDER RVH W/ SECONDARY REPOL ABNORMALITY : Confirmed by: Negrito Hyman MD 22-Dec-2016 20:29:15
[2016-12-23] MEDS ORDERED: GLUCAGON,HUMAN RECOMB 1 MG INJ IM PRN (01:03)
[2016-12-23] MEDS ORDERED: DEXTROSE 50%-WATER 25 GM/50 ML DISP.SYRIN IV PRN ×2 (01:03)
[2016-12-23] MEDS ORDERED: DEXTROSE 40% GEL 15 GM TUBE PO PRN ×2 (01:03)
[2016-12-23] MEDS ORDERED: ALBUTEROL SULFATE 0.083% NEB 2.5 MG/3 ML AMPUL NEB PRN (01:08)
[2016-12-23] MEDS ORDERED: GUAIFENESIN SYRP 200 MG/10 ML UDC PO PRN (01:08)
[2016-12-23] MEDS ORDERED: MAGNESIUM HYDROXIDE SUSP 30 ML UDCUP PO PRN (01:15)
[2016-12-23] MEDS ORDERED: AZTREONAM INJ 1 GM VIAL IV PRN (01:15)
[2016-12-23] MEDS ORDERED: ACETAMINOPHEN 325 MG TABLET ONE (01:29)
[2016-12-23 01:32] LABS: ADD ON TESTING BLD IN LAB ACKNOWLEDGE
--- NOTE | 2016-12-23 01:32 | PDOC H&P ---
History of Present Illness Admission Date/PCP: 12/22/16 22:54 [facility] Curseen Patient complains of: difficulty breathing, right chest pain History of Present Illness: LEXX KIMBALL is a 61 year old female with 2-1/2 L nightly oxygen per nasal cannula COPD who presents to the emergency room for evaluation of approximately a 24 hour history of progressive difficulty breathing. Particularly noticeable with lying down or any activity. Subjective fever. However, no nausea vomiting, diarrhea or dysuria. Associated sharp right lateral chest wall pain, worsened with a cough. Normally does not wheeze. No prior intubation for respiratory difficulty. Last antibiotic was a Z-Ike in October of this year. Hospitalized on our service August 28- of this year with final diagnoses including COPD exacerbation. History and physical and discharge summary reviewed. Patient has been discussed with emergency room physician who evaluated the patient. . Laboratory results are listed in [employer] and are reviewed. X-ray summary results are listed below, with full report(s) reviewed. . EKG reviewed and compared to a prior tracing from August 28 of this year. Social history/personal habits: . 2 children. Retired. No tobacco use since 2011. No alcohol or illicit drug use. Allergies/adverse reactions are listed in [employer] and are reviewed. Patient thinks she is able to tolerate Duricef. Home medications initially autopopulated into [employer] may not accurately reflect patient's true medications, dosages, and/or frequencies. monogram technician to reconcile medications. Unfortunately, patient not certain of all medications/dosages/frequencies. REVIEW OF SYSTEMS: Constitutional: See history and present illness. Eyes: Wears glasses. ENT: No swallowing problems or complaints. Denies hearing loss. Pulmonary: See history and present illness. Cardiovascular: See history and present illness. Gastrointestinal: No current complaints, including nausea or vomiting. Skin: No current complaints, including rashes. Hematologic: Bruising. Neurologic: No current complaints, including numbness or tingling. Musculoskeletal: No current or chronic joint complaints, such as arthritis. Psychiatric: Denies anxiety or depression. Endocrine: No current complaints, including polyuria. Genitourinary: No current complaints, including dysuria. PHYSICAL EXAMINATION: Emergency room executive director of nursing Rolan is present. 5 feet 5 inches tall. 80.9 kg. BMI 29.7 kg/m. Blood pressure 104/71. Pulse 115 and slightly irregular. Respirations are 17 and unlabored. 95% saturation on 2 L oxygen per nasal cannula. Temperature 99.0. Overweight otherwise well developed though perhaps somewhat chronically ill- appearing female, who appears perhaps a bit older than her stated age. Pleasant awake alert and cooperative. Appears to feel a bit under the weather, so to speak. Mildly anxious, without agitation. Skin is warm and dry. No grossly obvious evidence of rash in areas of skin examined. No subcutaneous nodules palpated. ENT: Hearing grossly normal to normal conversation. Tongue midline on protrusion pink and slightly tacky. Eyes: No scleral icterus. Pupils equal and reactive to light at 4 mm. Ragland conjunctivae. Neck is supple and nontender to gentle active range of motion and palpation. Midline trachea. No palpable thyroid nodule mass enlargement or tenderness. Lymphatic: No palpable cervical or clavicular nodes. Neck and lymphatic exams limited by patient body habitus. Psychiatric: Reasonable insight into acute and chronic medical issues. Oriented to time location and why here. Lungs: Auscultation reveals equal breath sounds bilaterally. No use of accessory respiratory muscles. Mild expiratory wheezing bilaterally. Cardiovascular: Heart regular rate and rhythm, without gallop murmur or rub. No carotid or abdominal aortic bruits. No ankle or pedal edema. Palpable dorsalis pedis pulses. Palpation of her right lower lateral chest wall easily reproduces her previously mentioned chest pain. No crepitus or obvious instability. Abdomen:soft somewhat distended nontender with positive bowel sounds. Unable to adequately evaluate abdomen for masses or organomegaly due to distention. Extremities: Feet are warm and dry. No calf tenderness to compression. No grossly obvious visual evidence of calf swelling. Gentle manipulation of lower extremities fails to reveal any obvious evidence of injury or instability to knees hips or ankles. Neurologic: Moves upper extremities grossly normally. Patellar reflexes absent. Absent Babinski. Light touch is intact at feet. Dorsiflexion and plantarflexion of feet 5 / 5 and symmetric. Past Medical History Cardiac Medical History: Reports: Atrial Fibrillation, Congestive Heart Failure - Diastolic, Coronary Artery Disease, Hypertension, Heart Murmur Denies: DVT, Myocardial Infarction, Hyperlipidema, Pulmonary Embolism Pulmonary Medical History: Reports: Bronchitis, Chronic Obstructive Pulmonary Disease (COPD), Pneumonia Denies: Asthma, Sleep Apnea, Tuberculosis EENT Medical History: Reports: Eyes - Glasses Denies: Ears, Throat Neurological Medical History: Denies: Hemorrhagic CVA, Ischemic CVA, Seizures Endocrine Medical History: Reports: Diabetes Mellitus Type 2 - diet controlled and metformin Denies: Diabetes Mellitus Type 1, Hyperthyroidism, Hypothyroidism Renal/ Medical History: Reports: None GI Medical History: Denies: Cirrhosis, Gastroesophageal Reflux Disease, Hepatitis, Peptic Ulcer Disease Musculoskeltal Medical History: Denies: Arthritis Psychiatric Medical History: Denies: Alcohol Dependency, Depression, General Anxiety Disorder, Substance Abuse, Tobacco Dependency Infectious Medical History: Denies: Clostridium Difficile, Hepatitis B, Hepatitis C, Methicillin- Resistant Staph Aureus Past Surgical History Past Surgical History: Reports: Cardiac Catheterization - x3, Section - x2 1980s, Tubal Ligation, Other - polyp removed; closure of atrial septal defect. Denies: Hysterectomy, Pacemaker Social History Information Source: Patient, Emergency Med Personnel, [facility] Records Smoking Status: Former Smoker Frequency of Alcohol Use: None Hx Recreational Drug Use: No Drugs: None Hx Prescription Drug Abuse: No - Advance Directive Resuscitation Status: Full Code Surrogate healthcare decision maker:: Sister Jenni Foster Family History Family History: CAD, DM, Malignancy Parental Family History Reviewed: Yes - Uncertain cause of father's . Mother of infection. Children Family History Reviewed: Yes - Bipolar disorder Sibling(s) Family History Reviewed.: Yes - Healthy Medication/Allergy Home Medications: Albuterol Sulfate [Ventolin 0.042% Neb 1.25 mg/3 mL Ampul] 3 ml NEB RTQ4HP PRN 08/28/16 Aspirin [Adult Low Dose Aspirin EC] 81 mg PO DAILY 08/28/16 Digoxin [Lanoxin 0.25 mg Tablet] 0.25 mg PO DAILY 08/28/16 Diltiazem HCl [Diltiazem 24Hr ER] 180 mg PO DAILY 08/28/16 Lisinopril [Zestril] 2.5 mg PO DAILY 08/28/16 Metformin HCl [Glucophage] 500 mg PO BIDBS 08/28/16 Multivitamin [Multivitamins] 1 cap PO DAILY 08/28/16 Sennosides/Docusate 8.6-50 mg [Senna Plus Tablet] 1 tab PO DAILY 08/28/16 Umeclidinium Brm/Vilanterol Tr [Anoro Ellipta 62.5-25 Mcg INH] 1 puff IH DAILY 08/28/16 Albuterol Sulfate [Ventolin HFA MDI 18 GM] 2 puff IH Q4HP PRN 12/23/16 Dabigatran Etexilate Mesylate [Pradaxa 150 mg Capsule] 150 mg PO BID 12/23/16 Azithromycin [Zithromax 250 mg Tablet] 500 mg PO DAILY #6 tablet 12/27/16 Benzonatate [Tessalon Perles 100 mg Capsule] 100 mg PO Q8HP PRN #20 capsule 03/07 Furosemide [Lasix 20 mg Tablet] 20 mg PO DAILY tablet 12/27/16 Loratadine [Loradamed] 10 mg PO DAILY #90 tablet 12/27/16 Prednisone 60 mg PO DAILY #18 tablet 12/27/16 Zafirlukast [Accolate 20 mg Tablet] 20 mg PO BID #60 tablet 12/27/16 Allergies/Adverse Reactions: ampicillin [Ampicillin] Allergy (Severe, Verified 12/23/16 01:14) Hives Penicillins Allergy (Severe, Verified 12/23/16 01:14) Hives tetracycline [Tetracycline] Allergy (Severe, Verified 12/23/16 01:14) Hives Physical Exam Vital Signs: Temp Pulse Resp BP Pulse Ox 99.0 F 109 H 14 104/71 94 12/22/16 15:59 12/22/16 15:59 12/23/16 00:01 12/23/16 00:01 12/23/16 00:01 Results Impressions: Chest X-Ray 12/22/16 16:06 IMPRESSION: No significant interval change. No acute findings. Other findings as noted above Assessment & Plan - Diagnosis (1) Acute exacerbation of chronic obstructive pulmonary disease (COPD) Is this a current diagnosis for this admission?: YesPlan: Patient will be admitted under COPD exacerbation protocol. Incentive spirometry twice a day. Scheduled DuoNeb's. As needed albuterol nebs. Solu-Medrol. Antibiotics will consist of Zithromax and aztreonam. I strongly encouraged patient to notify staff should patient feel that breathing is worsening. Patient is a full code. I have strongly encouraged patient to be careful getting out of bed without notifying staff, to avoid a fall with injury. Knee high SCDs for DVT prophylaxis; with patient on Pradaxa, no need for Lovenox or heparin.. Impression and plans were discussed with patient who concurs. Time spent in evaluation and management of patient: 65 minutes. (2) Afib Qualifiers: Atrial fibrillation type: chronic Qualified Code(s): I48.2 - Chronic atrial fibrillation Is this a current diagnosis for this admission?: YesPlan: Hemodynamically stable. Resume home medications as appropriate once these have been determined and reviewed. (3) Anticoagulated Is this a current diagnosis for this admission?: YesPlan: Resume home medications as appropriate once these have been determined and reviewed. (4) Diabetes mellitus type 2 in nonobese Is this a current diagnosis for this admission?: YesPlan: Diabetic cardiac diet. Accu-Cheks with appropriate sliding scale coverage. Resume home medications as appropriate once these have been determined and reviewed. (5) Diastolic CHF Qualifiers: Congestive heart failure chronicity: chronic Qualified Code(s): I50.32 - Chronic diastolic (congestive) heart failure Is this a current diagnosis for this admission?: YesPlan: No evidence of acute exacerbation of same. Resume home medications as appropriate once these have been determined and reviewed. (6) Right-sided chest wall pain Is this a current diagnosis for this admission?: YesPlan: Likely musculoskeletal in origin, but will repeat troponin. - Time Time Spent: 50 to 70 Minutes Anticipated discharge: Home Within: within 72 hours - Inpatient Certification Based on my medical assessment, after consideration of the patient's comorbidities, presenting symptoms, or acuity I expect that the services needed warrant INPATIENT care.: Yes I certify that my determination is in accordance with my understanding of Medicare's requirements for reasonable and necessary INPATIENT services [42 CFR 412.3e].: Yes Medical Necessity: Significant Comorbidiites Make Outpatient Treatment Too Risky , Need Close Monitoring Due to Risk of Patient Decompensation, Need For Continuous Telemetry Monitoring, Need for Nebulizer Therapy and Monitoring of Response, Need for IV Antibiotics, Risk of Complication if Not Cared For in Hospital Post Hospital Care: D/C or Transfer Summary
[2016-12-23 01:43] LABS: MAGNESIUM 1.3 mg/dL (1.6-2.3)
[2016-12-23] MEDS ORDERED: AZITHROMYCIN 250 MG TABLET PO ONE (02:00)
[2016-12-23] MEDS ORDERED: AZTREONAM INJ 1 GM VIAL ONE (02:27)
[2016-12-23] MEDS: AZTREONAM 1 GM in DEXTROSE 5%-WATER 50 ML IV SCH ×2 (02:56→09:41)
[2016-12-23] MEDS: METHYLPREDNISOLONE INJ 125 MG/2 ML SDV IV SCH ×2 (02:56→09:41)
[2016-12-23] MEDS: MAGNESIUM SULFATE/D5W 1 GM/100 ML RTUPB IV SCH ×3 (04:09→06:13)
[2016-12-23 06:31] LABS: APPEARANCE,URINE CLEAR; BILIRUBIN,URINE NEGATIVE (NEGATIVE); GLUCOSE, URINE >=500 mg/dL (NEGATIVE); KETONES,URINE TRACE mg/dL (NEGATIVE); LEUKOCYTE ESTERASE,URINE NEGATIVE (NEGATIVE); NITRITE,URINE NEGATIVE (NEGATIVE); PROTEIN,URINE NEGATIVE (NEGATIVE); URINE SPECIFIC GRAVITY 1.017; UROBILINOGEN,URINE NEGATIVE mg/dL (<2.0)
[2016-12-23 06:55] LABS: ABSOLUTE LYMPHOCYTES (AUTO) 0.6 10^3/uL (0.5-4.7); ABSOLUTE MONOCYTES (AUTO) 0.1 10^3/uL (0.1-1.4); ABSOLUTE NEUT (AUTO) 3.8 10^3/uL (1.7-8.2); HEMOGLOBIN 12.7 g/dL (12.0-15.5); MEAN CORPUSCULAR HEMOGLOBIN 29.8 pg (27.0-33.4); MEAN CORPUSCULAR HGB CONC 33.3 g/dL (32.0-36.0)
[2016-12-23 07:00] LABS: BASOPHILS % (AUTO) 0.1 % (0-2); EOSINOPHILS % (AUTO) 0.1 % (0-6); HEMATOCRIT 38.2 % (36.0-47.0); HGB HCT DIFFERENCE -0.1; LYMPHOCYTES % (AUTO) 13.5 % (13-45); MEAN CORPUSCULAR VOLUME 89 fl (80-97); MONOCYTES % (AUTO) 2.1 % (3-13); RED BLOOD COUNT 4.27 10^6/uL (3.72-5.28); RED CELL DISTRIBUTION WIDTH 13.9 % (11.5-14.0); SEGMENTED NEUTROPHILS % (AUTO) 84.2 % (42-78); WHITE BLOOD COUNT 4.6 10^3/uL (4.0-10.5)
[2016-12-23 07:01] LABS: PROTHROMBIN TIME 13.5 SEC (11.4-15.4)
[2016-12-23 07:02] LABS: PARTIAL THROMBOPLASTIN TIME 25.2 SEC (23.5-35.8)
[2016-12-23 07:09] LABS: ANION GAP 12 (5-19); BLOOD UREA NITROGEN 15 mg/dL (7-20); CALCIUM 8.9 mg/dL (8.4-10.2); CARBON DIOXIDE 26 mmol/L (22-30); CHLORIDE 100 mmol/L (98-107); GLUCOSE 256 mg/dL (75-110); POTASSIUM 4.7 mmol/L (3.6-5.0)
[2016-12-23] MEDS ORDERED: IPRATROPIUM/ALBUTEROL 0.5-2.5 MG/3 ML AMPUL NEB SCH (08:00)
[2016-12-23] MEDS: INSULIN LISPRO 100 UNIT/ML 3 ML VIAL SUBCUT PRN ×3 (08:01→17:42)
[2016-12-23] MEDS: AZITHROMYCIN 250 MG TABLET PO SCH (09:41)
[2016-12-23] MEDS: DOCUSATE SODIUM 100 MG CAPSULE PO SCH ×2 (09:41→17:06)
[2016-12-23] MEDS: LISINOPRIL 5 MG TABLET PO SCH (11:12)
[2016-12-23] MEDS: CEFTRIAXONE 1 GM/D5W RTU 1 GM/50 ML RTUPB IV SCH (11:16)
[2016-12-23] MEDS: IPRATROPIUM/ALBUTEROL 0.5-2.5 MG/3 ML AMPUL NEB SCH ×3 (11:22→20:17)
[2016-12-23] MEDS ORDERED: DIGOXIN 0.25 MG TABLET PO ONE (11:30)
[2016-12-23] MEDS ORDERED: DABIGATRAN ETEXILATE 150 MG CAPSULE PO ONE (11:30)
[2016-12-23] MEDS ORDERED: DILTIAZEM HCL 180 MG CAPSULE.CR PO ONE (11:30)
[2016-12-23] MEDS ORDERED: ASPIRIN 81 MG TABLET, ENT COATED PO ONE (11:30)
[2016-12-23] MEDS: METFORMIN HCL 500 MG TABLET PO SCH (17:06)
[2016-12-23] MEDS: METHYLPREDNISOLONE INJ 40 MG/1 ML SDV IV SCH (17:06)
[2016-12-23] MEDS: DABIGATRAN ETEXILATE 150 MG CAPSULE PO SCH (17:07)
[2016-12-23] MEDS ORDERED: DABIGATRAN ETEXILATE 150 MG CAPSULE PO SCH (18:00)
[2016-12-23] MEDS ORDERED: METHYLPREDNISOLONE INJ 125 MG/2 ML SDV IV SCH (18:00)
[2016-12-23] MEDS: BENZONATATE 100 MG CAPSULE PO PRN (21:10)
[2016-12-24] MEDS: INSULIN LISPRO 100 UNIT/ML 3 ML VIAL SUBCUT PRN ×5 (00:17→22:19)
[2016-12-24] MEDS: METHYLPREDNISOLONE INJ 40 MG/1 ML SDV IV SCH (02:20)
[2016-12-24 05:50] LABS: ABSOLUTE LYMPHOCYTES (AUTO) 0.8 10^3/uL (0.5-4.7); ABSOLUTE MONOCYTES (AUTO) 0.4 10^3/uL (0.1-1.4); ABSOLUTE NEUT (AUTO) 10.5 10^3/uL (1.7-8.2); BASOPHILS % (AUTO) 0.1 % (0-2); HEMATOCRIT 36.3 % (36.0-47.0); HEMOGLOBIN 11.9 g/dL (12.0-15.5); HGB HCT DIFFERENCE -0.6; LYMPHOCYTES % (AUTO) 7.1 % (13-45); MEAN CORPUSCULAR HEMOGLOBIN 29.4 pg (27.0-33.4); MEAN CORPUSCULAR HGB CONC 32.8 g/dL (32.0-36.0); MEAN CORPUSCULAR VOLUME 90 fl (80-97); MONOCYTES % (AUTO) 3.7 % (3-13); RED BLOOD COUNT 4.05 10^6/uL (3.72-5.28); RED CELL DISTRIBUTION WIDTH 13.6 % (11.5-14.0); SEGMENTED NEUTROPHILS % (AUTO) 89.1 % (42-78)
[2016-12-24 05:51] LABS: WHITE BLOOD COUNT 11.8 10^3/uL (4.0-10.5)
[2016-12-24 06:12] LABS: ANION GAP 13 (5-19); BLOOD UREA NITROGEN 24 mg/dL (7-20); CALCIUM 9.4 mg/dL (8.4-10.2); CARBON DIOXIDE 26 mmol/L (22-30); CHLORIDE 100 mmol/L (98-107); CREATININE RESULT 0.67 mg/dL (0.52-1.25); GLUCOSE 221 mg/dL (75-110); MAGNESIUM 1.9 mg/dL (1.6-2.3); POTASSIUM 4.9 mmol/L (3.6-5.0)
[2016-12-24] MEDS: ACETAMINOPHEN 325 MG TABLET PO PRN (06:48)
--- NOTE | 2016-12-24 07:21 | PDOC PROGRESS REPORT ---
Subjective Progress Note for:: 12/23/16 Subjective:: Reports her breathing is much better, but is not back to baseline. She does complain of cough. Patient denies chest pain, nausea, vomiting, fever, chills, headache, constipation, diarrhea, new onset weakness. Physical Exam Vital Signs: Temp Pulse Resp BP Pulse Ox 97.0 F 87 16 110/72 98 12/23/16 11:09 12/23/16 11:22 12/23/16 11:22 12/23/16 11:09 12/23/16 11:09 Intake & Output 12/22/16 12/23/16 12/24/16 06:59 06:59 06:59 Intake Total 682 240 Output Total 350 300 Balance 332 -60 Weight 85.2 kg Exam: GENERAL: No acute distress, obese, ill-appearing HEENT: Conjunctiva clear, nonicteric, moist mucous membranes, no JVD, midline trachea RESPIRATORY: Prolonged expiratory phase, otherwise clear to ascultation CARDIAC: IRR, +2/6 SM LLSB, no gallops/rubs ABDOMEN: Soft, NTTP, ND, +BSx4 EXTREMETIES: No edema, cyanosis, clubbing NEUROLOGIC: Alert, oriented to person/place/time, CN's grossly intact, no focal deficits SKIN: No rash, wounds PSYCH: Normal mood, normal affect Results Laboratory Results: 12/23/16 06:23 12/23/16 06:23 12/23/16 12/23/16 12/23/16 06:15 06:23 06:23 WBC 4.6 RBC 4.27 Hgb 12.7 Hct 38.2 MCV 89 MCH 29.8 MCHC 33.3 RDW 13.9 Plt Count 190 Seg Neutrophils % 84.2 H Lymphocytes % 13.5 Monocytes % 2.1 L Eosinophils % 0.1 Basophils % 0.1 Absolute Neutrophils 3.8 Absolute Lymphocytes 0.6 Absolute Monocytes 0.1 Absolute Eosinophils 0.0 Absolute Basophils 0.0 Sodium 138.0 Potassium 4.7 Chloride 100 Carbon Dioxide 26 Anion Gap 12 BUN 15 Creatinine 0.60 Est GFR ( Amer) > 60 Est GFR (Non-Af Amer) > 60 Glucose 256 H Calcium 8.9 Magnesium Urine Color YELLOW Urine Appearance CLEAR Urine pH 6.0 Ur Specific [place] 1.017 Urine Protein NEGATIVE Urine Glucose (UA) >=500 H Urine Ketones TRACE H Urine Blood NEGATIVE Urine Nitrite NEGATIVE Ur Leukocyte Esterase NEGATIVE Urine WBC (Auto) 1 Urine RBC (Auto) 0 12/23/16 06:23 WBC RBC Hgb Hct MCV MCH MCHC RDW Plt Count Seg Neutrophils % Lymphocytes % Monocytes % Eosinophils % Basophils % Absolute Neutrophils Absolute Lymphocytes Absolute Monocytes Absolute Eosinophils Absolute Basophils Sodium Potassium Chloride Carbon Dioxide Anion Gap BUN Creatinine Est GFR ( Amer) Est GFR (Non-Af Amer) Glucose Calcium Magnesium 2.5 H D Urine Color Urine Appearance Urine pH Ur Specific [place] Urine Protein Urine Glucose (UA) Urine Ketones Urine Blood Urine Nitrite Ur Leukocyte Esterase Urine WBC (Auto) Urine RBC (Auto) 12/23/16 01:37 Troponin I < 0.012 Impressions: Chest X-Ray 12/22/16 16:06 IMPRESSION: No significant interval change. No acute findings. Other findings as noted above Assessment & Plan - Diagnosis (1) Acute exacerbation of chronic obstructive pulmonary disease (COPD) Is this a current diagnosis for this admission?: YesPlan: Continue to taper patient Solu-Medrol and will decrease this at this time. Scheduled nebulized treatments and as needed Xopenex treatments. (2) Hypomagnesemia Is this a current diagnosis for this admission?: YesPlan: Replete and recheck (3) Acute on chronic respiratory failure with hypoxemia Is this a current diagnosis for this admission?: YesPlan: Reports that she only uses oxygen at night, but has been using it today. Continue to maintain saturation between 90 and 94% (4) Afib Qualifiers: Atrial fibrillation type: chronic Qualified Code(s): I48.2 - Chronic atrial fibrillation Is this a current diagnosis for this admission?: YesPlan: Currently patient is rate controlled on digoxin and cardizem. Also on Pradaxa (5) Anticoagulated Is this a current diagnosis for this admission?: YesPlan: Patient's Pradaxa (6) CAD (coronary artery disease) Qualifiers: Coronary Disease-Associated Artery/Lesion type: [place] artery [place] vs. transplanted heart: [place] heart Associated angina: without angina Qualified Code(s): I25.10 - Atherosclerotic heart disease of [place] coronary artery without angina pectoris Is this a current diagnosis for this admission?: Yes (7) Diabetes mellitus type 2 in nonobese Is this a current diagnosis for this admission?: YesPlan: Continue metformin and Accu-Cheks scale insulin. (8) Diastolic CHF Qualifiers: Congestive heart failure chronicity: chronic Qualified Code(s): I50.32 - Chronic diastolic (congestive) heart failure Is this a current diagnosis for this admission?: Yes - Time Time Spent with patient: 25-34 minutes
[2016-12-24] MEDS: IPRATROPIUM/ALBUTEROL 0.5-2.5 MG/3 ML AMPUL NEB SCH ×4 (07:36→20:11)
[2016-12-24] MEDS: METFORMIN HCL 500 MG TABLET PO SCH ×2 (07:57→17:50)
[2016-12-24] MEDS ORDERED: SENNOSIDES/DOCUSATE 8.6-50 MG 1 EACH TABLET PO SCH (10:00)
[2016-12-24] MEDS ORDERED: METHYLPREDNISOLONE INJ 40 MG/1 ML SDV IV SCH (10:00)
[2016-12-24] MEDS ORDERED: (PENDING PHARMACY ID) (Diltiazem Hcl [Diltiazem 24hr Er] 180 MG) PO SCH (10:00)
[2016-12-24] MEDS ORDERED: (PENDING PHARMACY ID) (Lisinopril [Zestril] 2.5 MG) PO SCH (10:00)
[2016-12-24] MEDS: ASPIRIN 81 MG TABLET, ENT COATED PO SCH (10:05)
[2016-12-24] MEDS: DIGOXIN 0.25 MG TABLET PO SCH (10:05)
[2016-12-24] MEDS: DILTIAZEM HCL 180 MG CAPSULE.CR PO SCH (10:07)
[2016-12-24] MEDS: AZITHROMYCIN 250 MG TABLET PO SCH (10:08)
[2016-12-24] MEDS: BENZONATATE 100 MG CAPSULE PO PRN ×2 (10:08→22:18)
[2016-12-24] MEDS: DABIGATRAN ETEXILATE 150 MG CAPSULE PO SCH ×2 (10:13→17:55)
[2016-12-24] MEDS: CEFTRIAXONE 1 GM/D5W RTU 1 GM/50 ML RTUPB IV SCH (10:19)
[2016-12-24] MEDS: SENNOSIDES/DOCUSATE 8.6-50 MG 1 EACH TABLET PO SCH (10:20)
[2016-12-24] MEDS: DOCUSATE SODIUM 100 MG CAPSULE PO SCH ×2 (10:20→17:56)
[2016-12-24] MEDS: LISINOPRIL 5 MG TABLET PO SCH (10:20)
--- NOTE | 2016-12-24 12:41 | PDOC PROGRESS REPORT ---
Subjective Progress Note for:: 12/24/16 Subjective:: Did not tolerate decrease in Solu-Medrol yesterday. Patient reports that her breathing is worse today significantly than yesterday. Patient continues to require oxygen. Patient denies chest pain, nausea, vomiting, fever, chills, headache, constipation, diarrhea, new onset weakness. Physical Exam Vital Signs: Temp Pulse Resp BP Pulse Ox 97.5 F 71 22 H 113/58 L 93 12/24/16 04:02 12/24/16 04:02 12/24/16 04:02 12/24/16 04:02 12/24/16 04:02 Intake & Output 12/23/16 12/24/16 12/25/16 06:59 06:59 06:59 Intake Total 682 3040 Output Total 350 2400 Balance 332 640 Weight 85.2 kg 86 kg Exam: GENERAL: obese, mild tachypnea HEENT: Conjunctiva clear, nonicteric, moist mucous membranes, no JVD, midline trachea RESPIRATORY: mild tachypnea, poor air excursion, bilateral inspiratory and expiratory wheezes CARDIAC: IRR, +2/6 SM LLSB, no gallops/rubs ABDOMEN: Soft, NTTP, ND, +BSx4 EXTREMETIES: No edema, cyanosis, clubbing NEUROLOGIC: Alert, oriented to person/place/time, CN's grossly intact, no focal deficits SKIN: No rash, wounds PSYCH: Normal mood, normal affect Results Laboratory Results: 12/24/16 04:57 12/24/16 04:57 12/23/16 12/24/16 12/24/16 06:23 04:57 04:57 WBC 11.8 H D RBC 4.05 Hgb 11.9 L Hct 36.3 MCV 90 MCH 29.4 MCHC 32.8 RDW 13.6 Plt Count 204 Seg Neutrophils % 89.1 H Lymphocytes % 7.1 L Monocytes % 3.7 Eosinophils % 0.0 Basophils % 0.1 Absolute Neutrophils 10.5 H Absolute Lymphocytes 0.8 Absolute Monocytes 0.4 Absolute Eosinophils 0.0 Absolute Basophils 0.0 Sodium 139.0 Potassium 4.9 Chloride 100 Carbon Dioxide 26 Anion Gap 13 BUN 24 H Creatinine 0.67 Est GFR ( Amer) > 60 Est GFR (Non-Af Amer) > 60 Glucose 221 H Calcium 9.4 Magnesium 2.5 H D 1.9 12/23/16 01:37 Troponin I < 0.012 Impressions: Chest X-Ray 12/22/16 16:06 IMPRESSION: No significant interval change. No acute findings. Other findings as noted above Assessment & Plan - Diagnosis (1) Acute exacerbation of chronic obstructive pulmonary disease (COPD) Is this a current diagnosis for this admission?: YesPlan: Increase Solu-Medrol to 80mg ivq8 Scheduled nebulized treatments and as needed Xopenex treatments. (2) Hypomagnesemia Is this a current diagnosis for this admission?: YesPlan: Repleted and recheck 1.9. (3) Acute on chronic respiratory failure with hypoxemia Is this a current diagnosis for this admission?: YesPlan: Reports that she only uses oxygen at night, but has been using it today. Continue to maintain saturation between 90 and 94% (4) Afib Qualifiers: Atrial fibrillation type: chronic Qualified Code(s): I48.2 - Chronic atrial fibrillation Is this a current diagnosis for this admission?: YesPlan: Currently patient is rate controlled on digoxin and cardizem. Dig level is subtheraputic. Also on Pradaxa (5) Anticoagulated Is this a current diagnosis for this admission?: Yes (6) CAD (coronary artery disease) Qualifiers: Coronary Disease-Associated Artery/Lesion type: [place] artery [place] vs. transplanted heart: [place] heart Associated angina: without angina Qualified Code(s): I25.10 - Atherosclerotic heart disease of [place] coronary artery without angina pectoris Is this a current diagnosis for this admission?: YesPlan: No beta katherine secondary to bronchospastic disease Generic Name Dose Route Start Last Admin Trade Name Arya PRN Reason Stop Dose Admin Aspirin 81 mg 12/24/16 10:00 12/24/16 10:05 Ecotrin 81 Mg Ec Tablet PO 01/23/17 09:59 81 mg DAILY HARRY Lisinopril 2.5 mg 12/23/16 11:00 12/24/16 10:20 Prinivil 5 Mg Tablet PO 01/22/17 10:59 2.5 mg DAILY@1100 [facility] (7) Diabetes mellitus type 2 in nonobese Is this a current diagnosis for this admission?: YesPlan: Continue metformin and Accu-Cheks scale insulin while on solumedrol (8) Diastolic CHF Qualifiers: Congestive heart failure chronicity: chronic Qualified Code(s): I50.32 - Chronic diastolic (congestive) heart failure Is this a current diagnosis for this admission?: YesPlan: Currently compensated. (10) Obesity (BMI 30.0-34.9) Is this a current diagnosis for this admission?: Yes - Time Time Spent with patient: 25-34 minutes Medications reviewed and adjusted accordingly: Yes Anticipated discharge: Home Within: within 48 hours - Inpatient Certification Based on my medical assessment, after consideration of the patient's comorbidities, presenting symptoms, or acuity I expect that the services needed warrant INPATIENT care.: Yes I certify that my determination is in accordance with my understanding of Medicare's requirements for reasonable and necessary INPATIENT services [42 CFR 412.3e].: Yes Medical Necessity: Need for Nebulizer Therapy and Monitoring of Response Post Hospital Care: D/C Arabic Linguist Documentation
[2016-12-24] MEDS: METHYLPREDNISOLONE INJ 125 MG/2 ML SDV IV SCH (17:48)
[2016-12-25] MEDS: METHYLPREDNISOLONE INJ 125 MG/2 ML SDV IV SCH ×3 (02:13→18:34)
[2016-12-25] MEDS: METFORMIN HCL 500 MG TABLET PO SCH ×2 (07:47→16:35)
[2016-12-25] MEDS: INSULIN LISPRO 100 UNIT/ML 3 ML VIAL SUBCUT PRN ×4 (07:51→22:00)
[2016-12-25] MEDS: IPRATROPIUM/ALBUTEROL 0.5-2.5 MG/3 ML AMPUL NEB SCH ×4 (08:30→20:19)
[2016-12-25] MEDS: AZITHROMYCIN 250 MG TABLET PO SCH (10:33)
[2016-12-25] MEDS: DILTIAZEM HCL 180 MG CAPSULE.CR PO SCH (10:33)
[2016-12-25] MEDS: DIGOXIN 0.25 MG TABLET PO SCH (10:41)
[2016-12-25] MEDS: ASPIRIN 81 MG TABLET, ENT COATED PO SCH (10:41)
[2016-12-25] MEDS: DABIGATRAN ETEXILATE 150 MG CAPSULE PO SCH ×2 (10:41→18:48)
[2016-12-25] MEDS: CEFTRIAXONE 1 GM/D5W RTU 1 GM/50 ML RTUPB IV SCH (10:46)
[2016-12-25] MEDS: LISINOPRIL 5 MG TABLET PO SCH (10:46)
[2016-12-25] MEDS: DOCUSATE SODIUM 100 MG CAPSULE PO SCH ×2 (10:48→18:55)
[2016-12-25] MEDS: SENNOSIDES/DOCUSATE 8.6-50 MG 1 EACH TABLET PO SCH (10:48)
[2016-12-25] MEDS ORDERED: FUROSEMIDE INJ/PF 20 MG/2 ML SDV IV ONE (13:30)
[2016-12-25] MEDS: PROMETHAZINE HCL 25 MG TABLET PO PRN (15:38)
--- NOTE | 2016-12-25 16:46 | PDOC PROGRESS REPORT ---
Subjective Progress Note for:: 12/25/16 Subjective:: Patient reports that her breathing is marginally better. Patient continues to require oxygen. Patient also complains Patient denies chest pain, nausea, vomiting, fever, chills, headache, constipation, diarrhea, new onset weakness. Physical Exam Vital Signs: Temp Pulse Resp BP Pulse Ox 97.7 F 81 16 100/50 L 94 12/25/16 03:54 12/25/16 03:54 12/25/16 03:54 12/25/16 03:54 12/25/16 03:54 Intake & Output 12/24/16 12/25/16 12/26/16 06:59 06:59 06:59 Intake Total 3046 1330 Output Total 2400 625 Balance 646 705 Weight 86 kg 86.7 kg Exam: GENERAL: obese, mild tachypnea, flushed HEENT: Conjunctiva clear, nonicteric, moist mucous membranes, no JVD, midline trachea RESPIRATORY: mild tachypnea, good air excursion, very light bilateral inspiratory and expiratory wheezes CARDIAC: IRR, +2/6 SM LLSB, no gallops/rubs ABDOMEN: Soft, NTTP, ND, +BSx4 EXTREMETIES: No edema, cyanosis, clubbing NEUROLOGIC: Alert, oriented to person/place/time, CN's grossly intact, no focal deficits SKIN: No rash, wounds PSYCH: Normal mood, normal affect Results Laboratory Results: 12/24/16 04:57 12/24/16 04:57 12/23/16 01:37 Troponin I < 0.012 Impressions: Chest X-Ray 12/22/16 16:06 IMPRESSION: No significant interval change. No acute findings. Other findings as noted above Assessment & Plan - Diagnosis (1) Acute exacerbation of chronic obstructive pulmonary disease (COPD) Is this a current diagnosis for this admission?: YesPlan: Attempt to decrease Solu-Medrol to 40mg ivq8 Scheduled nebulized treatments and as needed Xopenex treatments. Add singulair, flonase and claritin for seasonal allergies. (2) Hypomagnesemia Is this a current diagnosis for this admission?: Yes (3) Acute on chronic respiratory failure with hypoxemia Is this a current diagnosis for this admission?: Yes (4) Afib Qualifiers: Atrial fibrillation type: chronic Qualified Code(s): I48.2 - Chronic atrial fibrillation Is this a current diagnosis for this admission?: Yes (5) Anticoagulated Is this a current diagnosis for this admission?: Yes (6) CAD (coronary artery disease) Qualifiers: Coronary Disease-Associated Artery/Lesion type: [place] artery [place] vs. transplanted heart: [place] heart Associated angina: without angina Qualified Code(s): I25.10 - Atherosclerotic heart disease of [place] coronary artery without angina pectoris Is this a current diagnosis for this admission?: Yes (7) Diabetes mellitus type 2 in nonobese Is this a current diagnosis for this admission?: YesPlan: Continue metformin and Accu-Cheks scale insulin while on solumedrol (8) Diastolic CHF Qualifiers: Congestive heart failure chronicity: chronic Qualified Code(s): I50.32 - Chronic diastolic (congestive) heart failure Is this a current diagnosis for this admission?: YesPlan: Currently compensated. resume patient home lasix tomorrow (10) Obesity (BMI 30.0-34.9) Is this a current diagnosis for this admission?: Yes - Time Time Spent with patient: 25-34 minutes Medications reviewed and adjusted accordingly: Yes Anticipated discharge: Home Within: within 48 hours
[2016-12-25] MEDS: NYSTATIN 500000 UNIT/5 ML UDCUP PO SCH ×2 (18:33→21:59)
[2016-12-25] MEDS: LORATADINE 10 MG TABLET PO SCH (21:59)
[2016-12-25] MEDS: MONTELUKAST SODIUM 10 MG TABLET PO SCH (21:59)
[2016-12-26] MEDS: PROMETHAZINE HCL 25 MG TABLET PO PRN ×2 (00:16→23:36)
[2016-12-26] MEDS: METHYLPREDNISOLONE INJ 125 MG/2 ML SDV IV SCH ×3 (02:12→17:36)
[2016-12-26] MEDS: METFORMIN HCL 500 MG TABLET PO SCH ×2 (07:45→17:36)
[2016-12-26] MEDS: INSULIN LISPRO 100 UNIT/ML 3 ML VIAL SUBCUT PRN ×4 (07:45→21:47)
[2016-12-26 08:33] LABS: ABSOLUTE LYMPHOCYTES (AUTO) 0.9 10^3/uL (0.5-4.7); ABSOLUTE MONOCYTES (AUTO) 0.4 10^3/uL (0.1-1.4); ABSOLUTE NEUT (AUTO) 12.2 10^3/uL (1.7-8.2); BASOPHILS % (AUTO) 0.1 % (0-2); HEMATOCRIT 39.4 % (36.0-47.0); HEMOGLOBIN 12.9 g/dL (12.0-15.5); HGB HCT DIFFERENCE -0.7; LYMPHOCYTES % (AUTO) 6.7 % (13-45); MEAN CORPUSCULAR HEMOGLOBIN 29.5 pg (27.0-33.4); MEAN CORPUSCULAR HGB CONC 32.9 g/dL (32.0-36.0); MEAN CORPUSCULAR VOLUME 90 fl (80-97); MONOCYTES % (AUTO) 2.7 % (3-13); RED BLOOD COUNT 4.39 10^6/uL (3.72-5.28); SEGMENTED NEUTROPHILS % (AUTO) 90.5 % (42-78); WHITE BLOOD COUNT 13.4 10^3/uL (4.0-10.5)
[2016-12-26] MEDS: IPRATROPIUM/ALBUTEROL 0.5-2.5 MG/3 ML AMPUL NEB SCH ×4 (08:35→20:09)
[2016-12-26 08:41] LABS: ANION GAP 14 (5-19); BLOOD UREA NITROGEN 26 mg/dL (7-20); CALCIUM 9.1 mg/dL (8.4-10.2); CARBON DIOXIDE 26 mmol/L (22-30); CHLORIDE 96 mmol/L (98-107); CREATININE RESULT 0.55 mg/dL (0.52-1.25); GLUCOSE 312 mg/dL (75-110); POTASSIUM 4.4 mmol/L (3.6-5.0); SODIUM 136.4 mmol/L (137-145)
--- NOTE | 2016-12-26 08:45 | RADIOLOGY REPORT (SQ) ---
EXAM DESCRIPTION: CHEST PA/LAT COMPLETED DATE/TIME: 12/26/2016 8:32 am REASON FOR STUDY: hypoxia COMPARISON: 12/22/2016 EXAM PARAMETERS: NUMBER OF VIEWS: two views TECHNIQUE: Digital Frontal and Lateral radiographic views of the chest acquired. RADIATION DOSE: NA LIMITATIONS: none FINDINGS: LUNGS AND PLEURA: No opacities, masses or pneumothorax. No pleural effusion. The previous ly described chronic appearing changes are again identified. There are some minimal linear densities in the mid lung wolf most consistent with subsegmental atelectasis. I cannot exclude a component of obstructive lung disease. MEDIASTINUM AND HILAR STRUCTURES: Again there is some prominence of the hilar regions unchanged from the previous study. HEART AND VASCULAR STRUCTURES: The configuration of the heart and mediastinal structures is unchanged . BONES: No acute findings. HARDWARE: ASD closure device is again identified. OTHER: No other significant finding. IMPRESSION: No significant interval change. No acute findings. Other findings as noted above. TECHNICAL DOCUMENTATION: JOB ID: [id number] [employer]- All Rights Reserved
[2016-12-26] MEDS ORDERED: FUROSEMIDE 20 MG TABLET PO SCH (10:00)
[2016-12-26] MEDS: NYSTATIN 500000 UNIT/5 ML UDCUP PO SCH ×4 (10:54→21:46)
[2016-12-26] MEDS: CEFTRIAXONE 1 GM/D5W RTU 1 GM/50 ML RTUPB IV SCH (10:54)
[2016-12-26] MEDS: DILTIAZEM HCL 180 MG CAPSULE.CR PO SCH (10:55)
[2016-12-26] MEDS: AZITHROMYCIN 250 MG TABLET PO SCH (10:55)
[2016-12-26] MEDS: SENNOSIDES/DOCUSATE 8.6-50 MG 1 EACH TABLET PO SCH (10:56)
[2016-12-26] MEDS: ASPIRIN 81 MG TABLET, ENT COATED PO SCH (10:58)
[2016-12-26] MEDS: DIGOXIN 0.25 MG TABLET PO SCH (10:58)
[2016-12-26] MEDS: LISINOPRIL 5 MG TABLET PO SCH (10:59)
[2016-12-26] MEDS: DOCUSATE SODIUM 100 MG CAPSULE PO SCH ×2 (11:14→17:41)
[2016-12-26] MEDS: DABIGATRAN ETEXILATE 150 MG CAPSULE PO SCH ×2 (11:25→17:36)
[2016-12-26] MEDS: ACETAMINOPHEN 325 MG TABLET PO PRN (14:39)
--- NOTE | 2016-12-26 18:37 | PDOC PROGRESS REPORT ---
Subjective Progress Note for:: 12/26/16 Subjective:: Seen earlier today on morning rounds. Patient reports that her breathing is much better. Patient denies chest pain, nausea, vomiting, fever, chills, headache, constipation, diarrhea, new onset weakness. Physical Exam Vital Signs: Temp Pulse Resp BP Pulse Ox 98.1 F 90 16 119/66 97 12/26/16 15:13 12/26/16 16:26 12/26/16 16:26 12/26/16 15:13 12/26/16 16:26 Intake & Output 12/25/16 12/26/16 12/27/16 06:59 06:59 06:59 Intake Total 1330 1985 295 Output Total 625 1999 600 Balance 801 -77 -611 Weight 86.7 kg 86.8 kg Exam: GENERAL: obese, NAD, flushed HEENT: Conjunctiva clear, nonicteric, moist mucous membranes, no JVD, midline trachea RESPIRATORY: CTAB CARDIAC: IRR, +2/6 SM LLSB, no gallops/rubs ABDOMEN: Soft, NTTP, ND, +BSx4 EXTREMETIES: No edema, cyanosis, clubbing NEUROLOGIC: Alert, oriented to person/place/time, CN's grossly intact, no focal deficits SKIN: No rash, wounds PSYCH: Normal mood, normal affect Results Laboratory Results: 12/26/16 08:00 12/26/16 08:00 12/26/16 12/26/16 08:00 08:00 WBC 13.4 H RBC 4.39 Hgb 12.9 Hct 39.4 MCV 90 MCH 29.5 MCHC 32.9 RDW 14.0 Plt Count 273 Seg Neutrophils % 90.5 H Lymphocytes % 6.7 L Monocytes % 2.7 L Eosinophils % 0.0 Basophils % 0.1 Absolute Neutrophils 12.2 H Absolute Lymphocytes 0.9 Absolute Monocytes 0.4 Absolute Eosinophils 0.0 Absolute Basophils 0.0 Sodium 136.4 L Potassium 4.4 Chloride 96 L Carbon Dioxide 26 Anion Gap 14 BUN 26 H Creatinine 0.55 Est GFR ( Amer) > 60 Est GFR (Non-Af Amer) > 60 Glucose 312 H Calcium 9.1 12/23/16 01:37 Troponin I < 0.012 Impressions: Chest X-Ray 12/26/16 00:00 IMPRESSION: No significant interval change. No acute findings. Other findings as noted above. Assessment & Plan - Diagnosis (1) Acute exacerbation of chronic obstructive pulmonary disease (COPD) Is this a current diagnosis for this admission?: YesPlan: TransitionPatient to oral prednisone. Scheduled nebulized treatments and as needed Xopenex treatments.On singulair, flonase and claritin for seasonal allergies. (2) Acute on chronic respiratory failure with hypoxemia Is this a current diagnosis for this admission?: YesPlan: Reports that she only uses oxygen at night, but has been using it today. Continue to maintain saturation between 90 and 94% (3) Afib Qualifiers: Atrial fibrillation type: chronic Qualified Code(s): I48.2 - Chronic atrial fibrillation Is this a current diagnosis for this admission?: YesPlan: Currently patient is rate controlled on digoxin and cardizem. Dig level is subtheraputic. Also on Pradaxa (4) Anticoagulated Is this a current diagnosis for this admission?: Yes (5) CAD (coronary artery disease) Qualifiers: Coronary Disease-Associated Artery/Lesion type: [place] artery [place] vs. transplanted heart: [place] heart Associated angina: without angina Qualified Code(s): I25.10 - Atherosclerotic heart disease of [place] coronary artery without angina pectoris Is this a current diagnosis for this admission?: Yes (6) Diabetes mellitus type 2 in nonobese Is this a current diagnosis for this admission?: Yes (7) Diastolic CHF Qualifiers: Congestive heart failure chronicity: chronic Qualified Code(s): I50.32 - Chronic diastolic (congestive) heart failure Is this a current diagnosis for this admission?: Yes (9) Obesity (BMI 30.0-34.9) Is this a current diagnosis for this admission?: Yes (10) Hypomagnesemia Is this a current diagnosis for this admission?: Yes - Time Time Spent with patient: 15-24 minutes Medications reviewed and adjusted accordingly: Yes Anticipated discharge: Home Within: within 24 hours - Inpatient Certification Based on my medical assessment, after consideration of the patient's comorbidities, presenting symptoms, or acuity I expect that the services needed warrant INPATIENT care.: Yes I certify that my determination is in accordance with my understanding of Medicare's requirements for reasonable and necessary INPATIENT services [42 CFR 412.3e].: Yes Medical Necessity: Need for Nebulizer Therapy and Monitoring of Response Post Hospital Care: D/C Commercial Leasing Manager Documentation
[2016-12-26] MEDS: BENZONATATE 100 MG CAPSULE PO PRN (19:59)
[2016-12-26] MEDS: MONTELUKAST SODIUM 10 MG TABLET PO SCH (21:46)
[2016-12-26] MEDS: LORATADINE 10 MG TABLET PO SCH (21:46)
[2016-12-27] MEDS: METHYLPREDNISOLONE INJ 125 MG/2 ML SDV IV SCH (02:49)
[2016-12-27] MEDS: METFORMIN HCL 500 MG TABLET PO SCH (07:56)
[2016-12-27] MEDS: INSULIN LISPRO 100 UNIT/ML 3 ML VIAL SUBCUT PRN (07:56)
[2016-12-27] MEDS: IPRATROPIUM/ALBUTEROL 0.5-2.5 MG/3 ML AMPUL NEB SCH (08:31)
[2016-12-27 08:48] VITALS: BP 118/73
--- NOTE | 2016-12-27 13:23 | PDOC DISCHARGE SUMMARY ---
General - Admit/Disc Date/PCP Admission Date/Primary Care Provider: 12/23/16 01:08 SHERINE ESPOSITO MD Discharge Date: 12/27/16 - Discharge Diagnosis (1) Acute exacerbation of chronic obstructive pulmonary disease (COPD) Is this a current diagnosis for this admission?: Yes (2) Acute on chronic respiratory failure with hypoxemia Is this a current diagnosis for this admission?: Yes (3) Afib Is this a current diagnosis for this admission?: Yes (4) Anticoagulated Is this a current diagnosis for this admission?: Yes (5) CAD (coronary artery disease) Is this a current diagnosis for this admission?: Yes (6) Diabetes mellitus type 2 in nonobese Is this a current diagnosis for this admission?: Yes (7) Diastolic CHF Is this a current diagnosis for this admission?: Yes (9) Obesity (BMI 30.0-34.9) Is this a current diagnosis for this admission?: Yes (10) Hypomagnesemia Is this a current diagnosis for this admission?: Yes - Additional Information Resuscitation Status: Full Code Discharge Diet: Cardiac Discharge Activity: Activity As Tolerated, Slowly Increase Activity, Weigh Daily Home Medications: Albuterol Sulfate [Ventolin 0.042% Neb 1.25 mg/3 mL Ampul] 3 ml NEB RTQ4HP PRN 08/28/16 Aspirin [Adult Low Dose Aspirin EC] 81 mg PO DAILY 08/28/16 Digoxin [Lanoxin 0.25 mg Tablet] 0.25 mg PO DAILY 08/28/16 Diltiazem HCl [Diltiazem 24Hr ER] 180 mg PO DAILY 08/28/16 Lisinopril [Zestril] 2.5 mg PO DAILY 08/28/16 Metformin HCl [Glucophage] 500 mg PO BIDBS 08/28/16 Multivitamin [Multivitamins] 1 cap PO DAILY 08/28/16 Sennosides/Docusate 8.6-50 mg [Senna Plus Tablet] 1 tab PO DAILY 08/28/16 Umeclidinium Brm/Vilanterol Tr [Anoro Ellipta 62.5-25 Mcg INH] 1 puff IH DAILY 08/28/16 Albuterol Sulfate [Ventolin HFA MDI 18 GM] 2 puff IH Q4HP PRN 12/23/16 Dabigatran Etexilate Mesylate [Pradaxa 150 mg Capsule] 150 mg PO BID 12/23/16 Azithromycin [Zithromax 250 mg Tablet] 500 mg PO DAILY #6 tablet 12/27/16 Benzonatate [Tessalon Perles 100 mg Capsule] 100 mg PO Q8HP PRN #20 capsule 03/07 Furosemide [Lasix 20 mg Tablet] 20 mg PO DAILY tablet 12/27/16 Loratadine [Loradamed] 10 mg PO DAILY #90 tablet 12/27/16 Prednisone 60 mg PO DAILY #18 tablet 12/27/16 Zafirlukast [Accolate 20 mg Tablet] 20 mg PO BID #60 tablet 12/27/16 History of Present Illness History of Present Illness: Please see H&P for full HPI Hospital Course Hospital Course: Patient is a 61-year-old female with a known history of COPD who uses home oxygen at night only presented to the emergency department with shortness of breath and wheezing. Patient was found to have COPD exacerbation without evidence of pneumonia. Patient required high dose steroids and initially did not tolerate a decrease in IV steroids. She tolerated a decrease the day prior to discharge and was transitioned to oral prednisone. Patient discharged in stable condition. Physical Exam Vital Signs: Temp Pulse Resp BP Pulse Ox 98.3 F 92 18 118/73 92 12/27/16 11:00 12/27/16 11:00 12/27/16 11:00 12/27/16 11:00 12/27/16 11:00 Intake & Output 12/26/16 12/27/16 12/28/16 06:59 06:59 06:59 Intake Total 1984 1101 Output Total 1999 0162 Balance -15 -3977 Weight 86.8 kg 86.5 kg Exam: GENERAL: obese, NAD HEENT: Conjunctiva clear, nonicteric, moist mucous membranes, no JVD, midline trachea RESPIRATORY: CTAB CARDIAC: IRR, +2/6 SM LLSB, no gallops/rubs ABDOMEN: Soft, NTTP, ND, +BSx4 EXTREMETIES: No edema, cyanosis, clubbing NEUROLOGIC: Alert, oriented to person/place/time, CN's grossly intact, no focal deficits SKIN: No rash, wounds PSYCH: Normal mood, normal affect Results Laboratory Results: 12/26/16 08:00 12/26/16 08:00 12/23/16 01:37 Troponin I < 0.012 Impressions: Chest X-Ray 12/26/16 00:00 IMPRESSION: No significant interval change. No acute findings. Other findings as noted above. Qualifiers PATEINT BEING DISCHARGED WITH ANY OF THE FOLLOWING DIAGNOSIS?: No Plan Time Spent: Less than 30 Minutes
== END 2016-12-27 11:24 | disposition home or self-care (01) | DRG 189 ==
LOC: ER 15:54 → EH 22:54 → UNDOADMIN 22:54 → EH 12-23 01:08 → 3S 12-23 01:58
PROVIDERS: ADMIT Family Medicine; ATTEND Family Medicine
DX: J96.21 Acute and chronic respiratory failure with hypoxia (principal); J44.1 Chronic obstructive pulmonary disease with (acute) exacerbation; I50.32 Chronic diastolic (congestive) heart failure; I48.2 Chronic atrial fibrillation; Z79.01 Long term (current) use of anticoagulants; I25.10 Atherosclerotic heart disease of native coronary artery without angina pectoris; E11.9 Type 2 diabetes mellitus without complications; E83.42 Hypomagnesemia; Z79.899 Other long term (current) drug therapy; Z79.82 Long term (current) use of aspirin; Z79.84 Long term (current) use of oral hypoglycemic drugs; Z68.29 Body mass index [BMI] 29.0-29.9, adult; I11.0 Hypertensive heart disease with heart failure; Z88.0 Allergy status to penicillin; Z88.1 Allergy status to other antibiotic agents; Z87.891 Personal history of nicotine dependence
CPT/HCPCS: 36415; 71020; 80048; 80053; 80162; 81001; 82550; 82803; 82962; 83605; 83735; 83880; 84484; 85025; 85610; 85730; 87040; 93005; 93010; 94640; 94799; 99285; J0696; J1815; J1940; J2920; J2930; J3475; J3490; J7512; J7620

== ENCOUNTER 2017-03-01 16:45 | Emergency (ER) | payer BC ==
[2017-03-01] MEDS ORDERED: ALBUTEROL SULFATE 0.083% NEB 2.5 MG/3 ML AMPUL NEB ONE (17:57)
[2017-03-01] MEDS ORDERED: IPRATROPIUM/ALBUTEROL 0.5-2.5 MG/3 ML AMPUL NEB ONE (17:57)
[2017-03-01] MEDS ORDERED: PREDNISONE 20 MG TABLET PO ONE (17:57)
--- NOTE | 2017-03-01 18:01 | ER Document Report ---
ED Medical Screen (RME) - General Chief Complaint: Breathing Difficulty Stated Complaint: BREATHING PROBLEMS Time Seen by Provider: 03/01/17 17:56 Mode of Arrival: Ambulatory Information source: Patient Notes: 51-year-old female presents to ED for shortness of breath this morning. She gave herself a DuoNeb this morning and she got better. Then she laid down and she became very short of breath again. She has a history of COPD diastolic heart failure hypertension A. fib pneumonia diabetes type 2 and she had a closure of ASD and heart cath 3 with no stents or bypass. Patient does have wheezes and rhonchi bilaterally in the pit. She will be ordered some breathing treatments chest x-ray and prednisone. TRAVEL OUTSIDE OF THE [place] IN LAST 30 DAYS: No - Related Data Allergies/Adverse Reactions: ampicillin [Ampicillin] Allergy (Severe, Verified 03/01/17 16:52) Hives Penicillins Allergy (Severe, Verified 03/01/17 16:52) Hives tetracycline [Tetracycline] Allergy (Severe, Verified 03/01/17 16:52) Hives Past Medical History - Past Medical History Cardiac Medical History: Reports: Hx Atrial Fibrillation, Hx Congestive Heart Failure - Diastolic, Hx Coronary Artery Disease, Hx Hypertension, Hx Heart Murmur Denies: Hx DVT, Hx Heart Attack, Hx Hypercholesterolemia, Hx Pulmonary Embolism Pulmonary Medical History: Reports: Hx Bronchitis, Hx COPD, Hx Pneumonia Denies: Hx Asthma, Hx Sleep Apnea, Hx Tuberculosis Neurological Medical History: Denies: Hx Seizures Endocrine Medical History: Reports: Hx Diabetes Mellitus Type 2 - diet controlled and metformin. Denies: Hx Diabetes Mellitus Type 1, Hx Hyperthyroidism, Hx Hypothyroidism Renal/ Medical History: Denies: Hx Peritoneal Dialysis GI Medical History: Reports: Hx Diverticulitis, Hx Colonoscopy, Hx Endoscopy. Denies: Hx Cirrhosis, Hx Gastroesophageal Reflux Disease, Hx Hepatitis Musculoskeltal Medical History: Denies Hx Arthritis Psychiatric Medical History: Denies: Hx Depression Infectious Medical History: Denies: Hx C-Diff, Hx Hepatitis, Hx MRSA Past Surgical History: Reports: Hx Bowel Surgery - PYLORIC STENOSIS, Hx Cardiac Catheterization - x3, Hx Cardiac Surgery - ASD closure, Hx Section - x2 1980s, Hx Tubal Ligation, Other - polyp removed; closure of atrial septal defect.. Denies: Hx Hysterectomy, Hx Pacemaker - Immunizations Immunizations up to date: Yes Hx Diphtheria, Pertussis, Tetanus Vaccination: Yes Physical Exam - Vital signs Vitals: Temp Pulse Resp BP Pulse Ox 97.7 F 92 18 137/73 H 96 03/01/17 16:50 03/01/17 16:50 03/01/17 16:50 03/01/17 16:50 03/01/17 16:50 Course - Vital Signs Vital signs: Temp Pulse Resp BP Pulse Ox 97.7 F 92 18 137/73 H 96 03/01/17 16:50 03/01/17 16:50 03/01/17 16:50 03/01/17 16:50 03/01/17 16:50
--- NOTE | 2017-03-01 18:38 | RADIOLOGY REPORT (SQ) ---
EXAM DESCRIPTION: CHEST PA/LAT COMPLETED DATE/TIME: 03/01/2017 6:17 pm REASON FOR STUDY: cough congestion short of breath COMPARISON: December 2016 EXAM PARAMETERS: NUMBER OF VIEWS: two views TECHNIQUE: Digital Frontal and Lateral radiographic views of the chest acquired. RADIATION DOSE: NA LIMITATIONS: none FINDINGS: LUNGS AND PLEURA: No opacities, masses or pneumothorax. No pleural effusion. The previous ly described chronic appearing changes appears stable. Linear densities are identified most consiste nt with subsegmental atelectasis. I cannot exclude a component of obstructive lung disease. MEDIASTINUM AND HILAR STRUCTURES: Again there is some prominence of both hilar regions unchanged from the previous study. HEART AND VASCULAR STRUCTURES: The configuration of the heart and mediastinal structures is unchanged . BONES: No acute findings. HARDWARE: Es D closure device is again identified. OTHER: No other significant finding. IMPRESSION: No significant interval change. No acute findings. Other findings as noted above TECHNICAL DOCUMENTATION: JOB ID: [id number] [email or web address] All Rights Reserved
--- NOTE | 2017-03-01 20:29 | ER Document Report ---
ED Respiratory Problem - General Chief Complaint: Breathing Difficulty Stated Complaint: BREATHING PROBLEMS Time Seen by Provider: 03/01/17 17:56 Mode of Arrival: Ambulatory Information source: Patient Notes: Patient has a history of COPD and reports wheezing and nonproductive cough that started today. Patient states that she was given steroid and breathing treatments in triage that have helped her symptoms. Patient states that her cough frequency has decreased since the treatments and she is no longer having any difficulty breathing. Patient denies any fever or chest pain. TRAVEL OUTSIDE OF THE [place] IN LAST 30 DAYS: No - HPI Patient complains to provider of: COPD, Cough Onset: This afternoon Duration: Better Quality of pain: No pain Pain Level: Denies Context: Hx COPD. denies: Recent immobilization, Recent surgery, Smoker Cough: Nonproductive Sputum amount: None Associated symptoms: Cough, Wheezing. denies: Chest pain/discomfort, Congestion , Fever Similar symptoms previously: Yes Recently seen / treated by doctor: No - Related Data Allergies/Adverse Reactions: ampicillin [Ampicillin] Allergy (Severe, Verified 03/01/17 16:52) Hives Penicillins Allergy (Severe, Verified 03/01/17 16:52) Hives tetracycline [Tetracycline] Allergy (Severe, Verified 03/01/17 16:52) Hives Past Medical History - General Information source: Patient - Social History Smoking Status: Former Smoker Frequency of alcohol use: None Drug Abuse: None Family History: CAD, DM, Malignancy - Past Medical History Cardiac Medical History: Reports: Hx Atrial Fibrillation, Hx Congestive Heart Failure - Diastolic, Hx Coronary Artery Disease, Hx Hypertension, Hx Heart Murmur Denies: Hx DVT, Hx Heart Attack, Hx Hypercholesterolemia, Hx Pulmonary Embolism Pulmonary Medical History: Reports: Hx Bronchitis, Hx COPD, Hx Pneumonia Denies: Hx Asthma, Hx Sleep Apnea, Hx Tuberculosis Neurological Medical History: Denies: Hx Seizures Endocrine Medical History: Reports: Hx Diabetes Mellitus Type 2 - diet controlled and metformin. Denies: Hx Diabetes Mellitus Type 1, Hx Hyperthyroidism, Hx Hypothyroidism Renal/ Medical History: Denies: Hx Peritoneal Dialysis GI Medical History: Reports: Hx Diverticulitis, Hx Colonoscopy, Hx Endoscopy. Denies: Hx Cirrhosis, Hx Gastroesophageal Reflux Disease, Hx Hepatitis Musculoskeltal Medical History: Denies Hx Arthritis Psychiatric Medical History: Denies: Hx Depression Infectious Medical History: Denies: Hx C-Diff, Hx Hepatitis, Hx MRSA Past Surgical History: Reports: Hx Bowel Surgery - PYLORIC STENOSIS, Hx Cardiac Catheterization - x3, Hx Cardiac Surgery - ASD closure, Hx Section - x2 1980s, Hx Tubal Ligation, Other - polyp removed; closure of atrial septal defect.. Denies: Hx Hysterectomy, Hx Pacemaker - Immunizations Immunizations up to date: Yes Hx Diphtheria, Pertussis, Tetanus Vaccination: Yes Hx Pneumococcal Vaccination: 06/21/14 Review of Systems - Review of Systems Constitutional: No symptoms reported. denies: Fever, Recent illness EENT: No symptoms reported. denies: Throat pain Cardiovascular: No symptoms reported. denies: Chest pain Respiratory: Cough, Short of breath, Wheezing Gastrointestinal: No symptoms reported. denies: Abdominal pain, Nausea, Vomiting Genitourinary: No symptoms reported Female Genitourinary: No symptoms reported Musculoskeletal: No symptoms reported. denies: Back pain Skin: No symptoms reported Hematologic/Lymphatic: No symptoms reported Neurological/Psychological: No symptoms reported Physical Exam - Vital signs Vitals: Temp Pulse Resp BP Pulse Ox 97.7 F 92 18 137/73 H 96 03/01/17 16:50 03/01/17 16:50 03/01/17 16:50 03/01/17 16:50 03/01/17 16:50 - General General appearance: Appears well, Alert In distress: None - HEENT Head: Normocephalic, Atraumatic Eyes: Normal Conjunctiva: Normal Nasal: Normal Mouth/Lips: Normal Mucous membranes: Normal Neck: Normal, Supple. No: Lymphadenopathy - Respiratory Respiratory status: No respiratory distress Chest status: Nontender Breath sounds: Wheezing - faint wheeze to RLL Chest palpation: Normal - Cardiovascular Rhythm: Regular Heart sounds: S1 appreciated, S2 appreciated Murmur: No - Abdominal Inspection: Normal Distension: No distension Bowel sounds: Normal Tenderness: Nontender Organomegaly: No organomegaly - Back Back: Normal, Nontender. No: CVA tenderness - Extremities General upper extremity: Normal inspection, Nontender, Normal ROM General lower extremity: Normal inspection, Nontender, Normal ROM - Neurological Neuro grossly intact: Yes Cognition: Normal Sonny Coma Scale Eye Opening: Spontaneous Sonny Coma Scale Verbal: Oriented Sonny Coma Scale Motor: Obeys Commands Sonny Coma Scale Total: 15 - Psychological Associated symptoms: Normal affect, Normal mood - Skin Skin Temperature: Warm Skin Moisture: Dry Skin Color: Normal Course - Re-evaluation Re-evalutation: 03/01/17 20:26 Patient's respirations unlabored. Patient states that her wheezing and cough symptoms have improved. Patient denies any shortness of breath at this time. Patient states that she was given nebulizers in triage and that helped her symptoms. Discussed worsening signs or symptoms that patient should return neatly for. Patient verbalized understanding and agrees with plan of care. Patient presents with a mild exacerbation of their baseline COPD. Mild wheezing at time of presentation but vitals do not show significant hypoxemia or tachypnea. No retractions. Patient did clinically improve after receiving nebulizers here in the emergency department. Chest x-ray without evidence of an acute pneumonia. Based on patient's overall reassuring assessment, I believe they are stable for outpatient management with steroids. Patient has nebulizers at home. I do not suspect an acute alternative pathology at this time based on history and exam including acute pulmonary embolus, ACS, pneumothorax, or aortic dissection. At this time will discharge with return precautions and follow-up recommendations. Verbal discharge instructions given a the bedside and opportunity for questions given. Medication warnings reviewed. Patient is in agreement with this plan and has verbalized understanding of return precautions and the need for primary care follow-up in the next 24-72 hours. - Vital Signs Vital signs: Temp Pulse Resp BP Pulse Ox 97.7 F 90 16 127/77 H 94 03/01/17 16:50 03/01/17 20:55 03/01/17 20:55 03/01/17 20:55 03/01/17 20:55 - Diagnostic Test Radiology reviewed: Reports reviewed Discharge - Discharge Clinical Impression: Acute exacerbation of chronic obstructive pulmonary disease (COPD) Condition: Stable Disposition: HOME, SELF-CARE Instructions: Chronic Obstructive Lung Disease ([facility]), Inhaled Bronchodilators ( [facility]), Steroid Medication Additional Instructions: Return immediately for any new or worsening symptoms Followup with your primary care provider, call tomorrow to make a followup appointment Use your nebulizers at home as prescribed Prescriptions: Prednisone [Deltasone 20 mg Tablet] 2 tab PO DAILY 4 Days tablet Referrals: [facility] [Provider Group] - Follow up tomorrow
[2017-03-01 20:59] VITALS: BP 127/77
== END 2017-03-01 21:00 | disposition home or self-care (01) ==
LOC: ER 16:45
DX: J44.1 Chronic obstructive pulmonary disease with (acute) exacerbation (principal); R06.02 Shortness of breath; R06.2 Wheezing; R05 Cough; Z87.891 Personal history of nicotine dependence
CPT/HCPCS: 94640 ×2; 99284; 71020; J7512; J7620

== ENCOUNTER 2017-04-24 14:22 | Emergency (ER) | payer BC ==
--- NOTE | 2017-04-24 16:13 | ER Document Report ---
ED Extremity Problem, Lower - General Chief Complaint: Foot Pain Stated Complaint: LEFT LEG PAIN Time Seen by Provider: 04/24/17 15:31 Mode of Arrival: Ambulatory Information source: Patient TRAVEL OUTSIDE OF THE [place] IN LAST 30 DAYS: No - HPI Patient complains to provider of: Pain Location: Foot Notes: Patient arrives with complaints of right foot bruising. She states that she noticed the bruising yesterday. The patient is on Pradaxa. She denies any specific injury to her foot. She denies any numbness, tingling, weakness. She denies any fever redness. She denies any nausea, vomiting, diarrhea. No chest pain or shortness of breath. She denies any other complaints at this time. - Related Data Allergies/Adverse Reactions: ampicillin [Ampicillin] Allergy (Severe, Verified 04/24/17 14:32) Hives Penicillins Allergy (Severe, Verified 04/24/17 14:32) Hives tetracycline [Tetracycline] Allergy (Severe, Verified 04/24/17 14:32) Hives Past Medical History - Social History Smoking Status: Never Smoker Chew tobacco use (# tins/day): No Frequency of alcohol use: None Drug Abuse: None Family History: CAD, DM, Malignancy Patient has suicidal ideation: No Patient has homicidal ideation: No - Past Medical History Cardiac Medical History: Reports: Hx Atrial Fibrillation, Hx Congestive Heart Failure - Diastolic, Hx Coronary Artery Disease, Hx Hypertension, Hx Heart Murmur Denies: Hx DVT, Hx Heart Attack, Hx Hypercholesterolemia, Hx Pulmonary Embolism Pulmonary Medical History: Reports: Hx Bronchitis, Hx COPD, Hx Pneumonia Denies: Hx Asthma, Hx Sleep Apnea, Hx Tuberculosis Neurological Medical History: Denies: Hx Seizures Endocrine Medical History: Reports: Hx Diabetes Mellitus Type 2 - diet controlled and metformin. Denies: Hx Diabetes Mellitus Type 1, Hx Hyperthyroidism, Hx Hypothyroidism Renal/ Medical History: Denies: Hx Peritoneal Dialysis GI Medical History: Reports: Hx Diverticulitis, Hx Colonoscopy, Hx Endoscopy. Denies: Hx Cirrhosis, Hx Gastroesophageal Reflux Disease, Hx Hepatitis Musculoskeltal Medical History: Denies Hx Arthritis Psychiatric Medical History: Denies: Hx Depression Infectious Medical History: Denies: Hx C-Diff, Hx Hepatitis, Hx MRSA Past Surgical History: Reports: Hx Bowel Surgery - PYLORIC STENOSIS, Hx Cardiac Catheterization - x3, Hx Cardiac Surgery - ASD closure, Hx Section - x2 1980s, Hx Tubal Ligation, Other - polyp removed; closure of atrial septal defect.. Denies: Hx Hysterectomy, Hx Pacemaker - Immunizations Immunizations up to date: Yes Hx Diphtheria, Pertussis, Tetanus Vaccination: Yes Hx Pneumococcal Vaccination: 06/21/14 Review of Systems - Review of Systems -: Yes All other systems reviewed and negative Physical Exam - Vital signs Vitals: Temp Pulse Resp BP Pulse Ox 98.1 F 94 24 H 126/94 H 96 04/24/17 14:32 04/24/17 14:32 04/24/17 14:32 04/24/17 14:32 04/24/17 14:32 - Notes Notes: GENERAL: alert, cooperative, nontoxic, no distress. HEAD: normocephalic, atraumatic EYES: conjunctiva pink without discharge, no external redness or swelling. EARS: no external swelling, no external redness NOSE: atraumatic, no external swelling MOUTH/THROAT: mucous membranes moist and pink NECK: soft, supple, full range of motion, no meningismus. CHEST: no distress, lungs clear and equal throughout. No wheezing, rales, rhonchi. CARDIAC: regular rate and rhythm, no murmur, normal capillary refill, normal pulses. BACK: full range of motion, no CVA tenderness. EXTREMITIES: full range of motion of all extremities. No redness, no swelling. Patient is noted to have ecchymosis to the dorsum of her right foot near the third fourth and fifth MTP joints. This area is tender to palpation. The patient has a normal pulse, cap refill and sensation distally. NEURO: alert and oriented 3, no focal deficits, full range of motion of all extremities. PYSCH: appropriate mood, affect. Patient is cooperative. SKIN: pink, warm, dry, no rash. Course - Re-evaluation Re-evalutation: 04/24/17 17:16 Patient is nontoxic appearing with stable vitals. The patient has bruising to the dorsum of her right foot that she noticed yesterday. She denies any specific injury. She is on Pradaxa. She does have obvious bruising to the foot with tenderness to palpation. There is no redness or swelling. She has an intact pulse, sensation, cap refill with no signs of ischemia. X-ray shows no acute abnormality. There is no signs of infection. Patient will be discharged home with a prescription for tramadol. Follow-up if not better in 1 week, sooner for increased pain, fever, numbness, tingling, weakness, the whole foot turning blue, or for any further concerns. The patient is noted to have elevated blood pressure during today's emergency department visit. The patient was informed of this finding. The patient was instructed that this may be related to pre-hypertension and requires further evaluation with a primary care provider. The patient has no hypertensive symptoms at this time. The patient's emergency department workup and current diagnosis were explained to the patient and or family. Follow-up instructions were provided. Medications if prescribed were discussed. Instructions for when to return to the emergency department including specific worrisome symptoms were discussed with the patient and/or family. - Vital Signs Vital signs: Temp Pulse Resp BP Pulse Ox 98.1 F 94 24 H 126/94 H 96 04/24/17 14:32 04/24/17 14:32 04/24/17 14:32 04/24/17 14:32 04/24/17 14:32 - Diagnostic Test Radiology reviewed: Image reviewed, Reports reviewed - Negative right foot Discharge - Discharge Condition: Stable Disposition: HOME, SELF-CARE Instructions: Contusion ([facility]) Additional Instructions: Take medications as prescribed. Rest, ice, elevate your foot. Follow-up with your doctor if not better in 1 week, sooner for increased pain, fever,, tingling , weakness, coldness to the foot, or for any further concerns. Your blood pressure was elevated during today's visit. Have this rechecked with your doctor. Prescriptions: Tramadol HCl 50 mg PO TID PRN #10 tablet PRN Reason: Referrals: [facility] [Provider Group] - Follow up as needed
--- NOTE | 2017-04-24 17:07 | RADIOLOGY REPORT (SQ) ---
EXAM DESCRIPTION: FOOT RIGHT COMPLETE COMPLETED DATE/TIME: 04/24/2017 4:52 pm REASON FOR STUDY: PAIN COMPARISON: None. NUMBER OF VIEWS: Three views. TECHNIQUE: AP, lateral and oblique radiographic images acquired of the right foot. LIMITATIONS: None. FINDINGS: MINERALIZATION: Normal. BONES: No acute fracture or dislocation. No worrisome bone lesions. Mild degenerative changes. JOINTS: No effusions. SOFT TISSUES: No soft tissue swelling. No foreign body. OTHER: No other significant finding. IMPRESSION: NEGATIVE STUDY OF THE RIGHT FOOT. NO RADIOGRAPHIC EVIDENCE OF ACUTE INJURY. TECHNICAL DOCUMENTATION: JOB ID: [id number] [employer]- All Rights Reserved
[2017-04-24 17:26] VITALS: BP 110/53
== END 2017-04-24 17:25 | disposition home or self-care (01) ==
LOC: ER 14:22
DX: M79.672 Pain in left foot (principal); I48.91 Unspecified atrial fibrillation; I25.10 Atherosclerotic heart disease of native coronary artery without angina pectoris; I50.9 Heart failure, unspecified; I11.0 Hypertensive heart disease with heart failure; J44.9 Chronic obstructive pulmonary disease, unspecified; E11.9 Type 2 diabetes mellitus without complications; Z79.84 Long term (current) use of oral hypoglycemic drugs; Z88.0 Allergy status to penicillin; Z98.51 Tubal ligation status
CPT/HCPCS: 99283

== ENCOUNTER → 2017-06-09 | Outpatient (CLI) | payer BC ==
[~2017-06-09] MED LIST: REGADENOSON INJ 0.4 MG/5 ML DISP.SYRIN IV ONE
--- NOTE | 2017-06-09 13:55 | DRAGON STRESS TEST REPORT ---
Intravenous Lexiscan Cardiolite stress test using single photon emmision computerized tomography. Date of procedure: 06/09/2017. Ordering Provider: Dr. Rashawn Bob Patient's status: Out Patient. Indication: Atrial Fibrillation, and heart failure. Coronary risk factors: Age , diabetes mellitus, and hypertension. Resting EKG: Atrial fibrillation, with a controlled ventricular response. Poor R-wave leads V1 to V6. Incomplete right bundle branch block pattern Stress EKG: No changes of ischemia. Reason for termination: Protocol. The patient had no chest pain or discomfort and there were no arrhythmias seen. She had transient dizziness with stable blood pressure and also headache which subsided. Conclusions: Normal EKG and hemodynamic response to IV Lexiscan. Nuclear data: At rest the patient was given 10.75 millicuries of technetium 99m sestamibi injected intravenously. As per protocol rest non gated SPECT images were obtained. Subsequently the patient was given intravenous Lexiscan at a dose of 0.4 mg in 5 mL intravenously, followed by flush with normal saline. Subsequently the stress dose of 31.9 millicuries of technetium 99m sestamibi was injected intravenously. As per protocol stress gated images were obtained. Nuclear interpretation: Review of images showed that this is a poor quality study, with liver and bowel contamination artifact of the inferior wall. In spite of this all segments of the myocardium had normal perfusion at rest, and normal perfusion post stress with IV Lexiscan. All segments of the myocardium had normal motion, contraction, and thickening by gated study. T. I D. ratio was normal at 1.00. Computer read rest, and stress left ventricular ejection fraction were 47 %, and 49 %, respectively. Visually both the stress and rest ejection fractions were normal, and greater than 55%. Conclusion: 1. There is no scintigraphic evidence of Lexiscan induced myocardial ischemia. 2. There is no scintigraphic evidence of myocardial infarction/scar. Recommendations: 1. Please check an echocardiogram for LV ejection fraction correlation. 2. Aggressive risk factor modification, and treating the underlying co- morbidities. MTDD
== END ==
LOC: RAD 08:04
PROVIDERS: ATTEND Internal Medicine Cardiovascular Disease
DX: I50.9 Heart failure, unspecified (principal); I48.91 Unspecified atrial fibrillation; I10 Essential (primary) hypertension; E11.9 Type 2 diabetes mellitus without complications
CPT/HCPCS: 93017; 78452; A9500; J2785; Q9969

== ENCOUNTER 2017-07-17 15:43 | Emergency (ER) | payer BC ==
--- NOTE | 2017-07-17 16:22 | ER Document Report ---
ED General - General Chief Complaint: Breathing Difficulty Stated Complaint: DIFFICULTY BREATHING Time Seen by Provider: 07/17/17 16:20 Mode of Arrival: Ambulatory Information source: Patient Notes: 61 yr old female hx of copd on 2L nc at night time only presents wiht 1 week duration of cough and sob, pt admits ot productive yellow sputum, denies any fevers or chills. pt seen by pcp and placed on 20mg daily prednisone. TRAVEL OUTSIDE OF THE [place] IN LAST 30 DAYS: No - HPI Onset: Last week Onset/Duration: Persistent Quality of pain: No pain Severity: Moderate Pain Level: 2 Associated symptoms: Productive cough, Shortness of breath Exacerbated by: Walking Relieved by: Denies Similar symptoms previously: Yes Recently seen / treated by doctor: Yes - Related Data Allergies/Adverse Reactions: ampicillin [Ampicillin] Allergy (Severe, Verified 07/17/17 15:44) Hives Penicillins Allergy (Severe, Verified 07/17/17 15:44) Hives tetracycline [Tetracycline] Allergy (Severe, Verified 07/17/17 15:44) Hives Past Medical History - Social History Smoking Status: Former Smoker Cigarette use (# per day): No Chew tobacco use (# tins/day): No Smoking Education Provided: No Frequency of alcohol use: None Drug Abuse: None Family History: CAD, DM, Malignancy Patient has suicidal ideation: No Patient has homicidal ideation: No - Past Medical History Cardiac Medical History: Reports: Hx Atrial Fibrillation, Hx Congestive Heart Failure - Diastolic, Hx Coronary Artery Disease, Hx Hypertension, Hx Heart Murmur Denies: Hx DVT, Hx Heart Attack, Hx Hypercholesterolemia, Hx Pulmonary Embolism Pulmonary Medical History: Reports: Hx Bronchitis, Hx COPD, Hx Pneumonia Denies: Hx Asthma, Hx Sleep Apnea, Hx Tuberculosis Neurological Medical History: Denies: Hx Seizures Endocrine Medical History: Reports: Hx Diabetes Mellitus Type 2 - diet controlled and metformin. Denies: Hx Diabetes Mellitus Type 1, Hx Hyperthyroidism, Hx Hypothyroidism Renal/ Medical History: Denies: Hx Peritoneal Dialysis GI Medical History: Reports: Hx Diverticulitis, Hx Colonoscopy, Hx Endoscopy. Denies: Hx Cirrhosis, Hx Gastroesophageal Reflux Disease, Hx Hepatitis Musculoskeltal Medical History: Denies Hx Arthritis Psychiatric Medical History: Denies: Hx Depression Infectious Medical History: Denies: Hx C-Diff, Hx Hepatitis, Hx MRSA Past Surgical History: Reports: Hx Bowel Surgery - PYLORIC STENOSIS, Hx Cardiac Catheterization - x3, Hx Cardiac Surgery - ASD closure, Hx Section - x2 1980s, Hx Tubal Ligation, Other - polyp removed; closure of atrial septal defect.. Denies: Hx Hysterectomy, Hx Pacemaker - Immunizations Immunizations up to date: Yes Hx Diphtheria, Pertussis, Tetanus Vaccination: Yes Hx Pneumococcal Vaccination: 06/21/14 Review of Systems - Review of Systems Notes: REVIEW OF SYSTEMS: CONSTITUTIONAL : Denies fever, chills, or sweats. Denies recent illness. EENT: Denies eye, ear, throat, or mouth pain or symptoms. Denies nasal or sinus congestion or discharge. Denies throat, tongue, or mouth swelling or difficulty swallowing. CARDIOVASCULAR: Denies chest pain. Denies palpitations or racing or irregular heart beat. Denies ankle edema. RESPIRATORY: admitsto sob GASTROINTESTINAL: Denies abdominal pain or distention. Denies nausea, vomiting , or diarrhea. Denies blood in vomitus, stools, or per rectum. Denies black, tarry stools. Denies constipation. GENITOURINARY: Denies difficulty urinating, painful urination, burning, frequency, blood in urine, or discharge. FEMALE GENITOURINARY: Denies vaginal bleeding, heavy or abnormal periods, irregular periods. Denies vaginal discharge or odor. MUSCULOSKELETAL: Denies back or neck pain or stiffness. Denies joint pain or swelling. SKIN: Denies rash, lesions or sores. HEMATOLOGIC : Denies easy bruising or bleeding. LYMPHATIC: Denies swollen, enlarged glands. NEUROLOGICAL: Denies confusion or altered mental status. Denies passing out or loss of consciousness. Denies dizziness or lightheadedness. Denies headache. Denies weakness or paralysis or loss of use of either side. Denies problems with gait or speech. Denies sensory loss, numbness, or tingling. Denies seizures. PSYCHIATRIC: Denies anxiety or stress. Denies depression, suicidal ideation, or homicidal ideation. ALL OTHER SYSTEMS REVIEWED AND NEGATIVE. PHYSICAL EXAMINATION: GENERAL: Well-appearing, well-nourished and in no acute distress. HEAD: Atraumatic, normocephalic. EYES: Pupils equal round and reactive to light, extraocular movements intact, conjunctiva are normal. ENT: Nares patent, oropharynx clear without exudates. Moist mucous membranes. NECK: Normal range of motion, supple without lymphadenopathy LUNGS: coarse wheezing inspiratory and expiratory all throughout HEART: tachycardic ABDOMEN: Soft, nontender, nondistended abdomen. No guarding, no rebound. No masses appreciated. Female : deferred Musculoskeletal: Normal range of motion, no pitting or edema. No cyanosis. NEUROLOGICAL: Cranial nerves grossly intact. Normal speech, normal gait. Normal sensory, motor exams PSYCH: Normal mood, normal affect. SKIN: Warm, Dry, normal turgor, no rashes or lesions noted. Dictation was performed using [email or web address] voice recognition software Physical Exam - Vital signs Vitals: Temp Pulse Resp BP Pulse Ox 97.7 F 110 H 18 120/64 93 07/17/17 15:48 07/17/17 15:48 07/17/17 15:48 07/17/17 15:48 07/17/17 15:48 Course - Re-evaluation Re-evalutation: 07/17/17 17:28 Patient given 3 DuoNeb's, notes significant improvement, I will give her some further albuterol treatments. otherwise xray is consistnat with copd exacerbation 07/17/17 18:18 Patient looks much better, breathing clear, she otherwise in no distress. Patient reevaluated vitals signs are stable satting 94% on room air very strict return precautions have been provided to her 07/17/17 18:19 After performing a Medical Screening Examination, I estimate there is LOW risk for ACUTE CORONARY SYNDROME, PULMONARY EMBOLI, RESPIRATORY FAILURE, SEPSIS OR MENINGITIS, thus I consider the discharge disposition reasonable. I have reevaluated this patient multiple times and no significant life threatening changes are noted. The patient and I have discussed the diagnosis and risks, and we agree with discharging home with close follow-up. We also discussed returning to the Emergency Department immediately if new or worsening symptoms occur. We have discussed the symptoms which are most concerning (e.g., changing or worsening pain, trouble swallowing or breathing, neck stiffness, fever) that necessitate immediate return. - Vital Signs Vital signs: Temp Pulse Resp BP Pulse Ox 97.9 F 70 18 118/83 94 07/17/17 18:12 07/17/17 18:12 07/17/17 18:12 07/17/17 18:12 07/17/17 18:12 - Diagnostic Test Radiology reviewed: Image reviewed, Reports reviewed Discharge - Discharge Clinical Impression: Acute exacerbation of chronic obstructive pulmonary disease (COPD) Condition: Stable Disposition: HOME, SELF-CARE Instructions: Chronic Obstructive Lung Disease ([facility]) Prescriptions: Levofloxacin [Levaquin 750 mg Tablet] 750 mg PO DAILY #5 tablet Prednisone [Deltasone 20 mg Tablet] 3 tab PO DAILY 4 Days tablet Referrals: ABIODUN HART DO [NO LOCAL MD] - Follow up tomorrow
[2017-07-17] MEDS ORDERED: IPRATROPIUM/ALBUTEROL 0.5-2.5 MG/3 ML AMPUL NEB ONE ×2 (16:23)
[2017-07-17] MEDS ORDERED: PREDNISONE 20 MG TABLET PO ONE (16:23)
--- NOTE | 2017-07-17 16:47 | RADIOLOGY REPORT (SQ) ---
EXAM DESCRIPTION: CHEST PA/LAT COMPLETED DATE/TIME: 07/17/2017 4:37 pm REASON FOR STUDY: copd exacerbation COMPARISON: None April 2017 EXAM PARAMETERS: NUMBER OF VIEWS: two views TECHNIQUE: Digital Frontal and Lateral radiographic views of the chest acquired. RADIATION DOSE: NA LIMITATIONS: none FINDINGS: LUNGS AND PLEURA: Stable pulmonary exam demonstrating scarring and emphysematous changes. No opacities, masses or pneumothorax. No pleural effusion. MEDIASTINUM AND HILAR STRUCTURES: Stable pulmonary arterial prominence. HEART AND VASCULAR STRUCTURES: Stable cardiomegaly and atrial septal defect closure. BONES: No acute findings. HARDWARE: As above. OTHER: No other significant finding. IMPRESSION: Stable radiographic appearance of the chest. No evidence of acute cardiopulmonary abnor mality. TECHNICAL DOCUMENTATION: JOB ID: [id number] [employer] - [employer]- All Rights Reserved
[2017-07-17] MEDS ORDERED: ALBUTEROL SULFATE 0.083% NEB 2.5 MG/3 ML AMPUL NEB ONE (17:28)
[2017-07-17 18:13] VITALS: BP 118/83
== END 2017-07-17 18:25 | disposition home or self-care (01) ==
LOC: ER 15:43
DX: J44.1 Chronic obstructive pulmonary disease with (acute) exacerbation (principal); Z99.81 Dependence on supplemental oxygen; R05 Cough; R06.02 Shortness of breath; R00.0 Tachycardia, unspecified; I25.10 Atherosclerotic heart disease of native coronary artery without angina pectoris; I10 Essential (primary) hypertension; E11.9 Type 2 diabetes mellitus without complications; Z88.0 Allergy status to penicillin; Z88.1 Allergy status to other antibiotic agents; Z87.891 Personal history of nicotine dependence; Z87.01 Personal history of pneumonia (recurrent)
CPT/HCPCS: 94640 ×2; 99285; 71046; J7512; J7620

== ENCOUNTER → 2018-04-27 | Outpatient (CLI) | payer BC ==
--- NOTE | 2018-04-27 14:55 | RADIOLOGY REPORT (SQ) ---
EXAM DESCRIPTION: CHEST PA/LATERAL COMPLETED DATE/TIME: 04/27/2018 2:39 pm REASON FOR STUDY: BRONCHITIS COMPARISON: June 2017 EXAM PARAMETERS: NUMBER OF VIEWS: two views TECHNIQUE: Digital Frontal and Lateral radiographic views of the chest acquired. RADIATION DOSE: NA LIMITATIONS: none FINDINGS: LUNGS AND PLEURA: No opacities, masses or pneumothorax. No pleural effusion. Chronic appe aring changes appears stable. MEDIASTINUM AND HILAR STRUCTURES: Again there is prominence of the pulmonary arteries. HEART AND VASCULAR STRUCTURES: Cardiac silhouette remains enlarged. BONES: No acute findings. HARDWARE: The previously described atrial septal defect closure device is again identified. OTHER: No other significant finding. IMPRESSION: No significant interval change. No acute findings. Other findings as noted above. TECHNICAL DOCUMENTATION: JOB ID: [id number] [employer]- All Rights Reserved Reading location - IP/workstation name: [email or web address]
== END ==
LOC: OD 14:23
PROVIDERS: ATTEND Internal Medicine Pulmonary Disease
DX: J40 Bronchitis, not specified as acute or chronic (principal)
CPT/HCPCS: 71046

== ENCOUNTER 2018-07-12 11:47 | Inpatient (IN) | payer BC, MEDICARE ==
[2018-07-12] MEDS ORDERED: DILTIAZEM HCL/D5W 125 MG/125 ML RTUINJ IV PRN (12:10)
[2018-07-12] MEDS ORDERED: DILTIAZEM HCL INJ 25 MG/5 ML VIAL IV ONE (12:10)
--- NOTE | 2018-07-12 12:14 | ER Document Report ---
ED General - General Stated Complaint: DIFFICULTY BREATHING Time Seen by Provider: 07/12/18 12:01 Primary Care Provider: ASCENCION CASH MD [Primary Care Provider] - Follow up as needed TRAVEL OUTSIDE OF THE [place] IN LAST 30 DAYS: No - HPI Notes: Patient is a 62-year-old female that presents to the emergency department for chief complaint of shortness of breath. Patient has congestive heart failure, A. fib, and COPD. She is currently an every day smoker. She reports increased shortness of breath since last night. She denies feeling any edema or fluid overload. She denies orthopnea. She has used her home albuterol rescue inhaler twice today with temporary and minimal improvement. She does report palpitations that have been intermittent. Currently she is denying feeling any palpitations. She denies any chest pain, fevers and chills. Patient is on Pradaxa for her atrial fibrillation. She wears 2.5 L nasal cannula oxygen at home at night and as needed. Past Medical History: CHF, COPD, A. fib Past Surgical History: Tubal, colon polypectomy, , pyloric stenosis Social History: Daily tobacco. Denies alcohol and drug use Family History: Reviewed and noncontributory for presenting illness Allergies: Reviewed, see documented allergy list. REVIEW OF SYSTEMS: CONSTITUTIONAL : No fever No chills No diaphoresis No recent illness EENT: No vision changes No congestion No sore throat CARDIOVASCULAR: No chest pain palpitations RESPIRATORY: shortness of breath No cough difficulty breathing GASTROINTESTINAL: No abdominal pain No nausea No vomiting No diarrhea GENITOURINARY: No dysuria No hematuria No difficulty urinating MUSCULOSKELETAL: No back pain No leg pain No arm pain SKIN: No rashes No lesions LYMPHATIC: No swollen, enlarged glands. NEUROLOGICAL: No lightheadedness No headache No weakness No paresthesias PSYCHIATRIC: No anxiety No depression PHYSICAL EXAMINATION: Vital signs reviewed, nursing noted reviewed. GENERAL: Well-appearing, well-nourished and in no acute distress. HEAD: Atraumatic, normocephalic. EYES: Eyes appear normal, extraocular movements intact, sclera anicteric, conjunctiva are normal. ENT: nares patent, oropharynx clear without exudates. Mildly dry mucous membranes. NECK: Normal range of motion, supple without lymphadenopathy LUNGS: expiratory wheezing bilaterally. No accessory muscle use, mild tachypnea HEART: Tachycardic rate and irregularly irregular rhythm without murmurs. +2/4 bilateral radial pulses ABDOMEN: Soft, nontender, normoactive bowel sounds. No rebound, guarding, or rigidity. No masses appreciated. EXTREMITIES: Nontender, good range of motion, no pitting or edema. NEUROLOGICAL: No focal neurological deficits. Moves all extremities spontaneous ly Motor and sensory grossly intact on exam. PSYCH: Normal mood, normal affect. SKIN: Warm, Dry, normal turgor, no rashes or lesions noted on exposed skin - Related Data Allergies/Adverse Reactions: ampicillin [Ampicillin] Allergy (Severe, Verified 07/17/17 15:44) Hives Penicillins Allergy (Severe, Verified 07/17/17 15:44) Hives tetracycline [Tetracycline] Allergy (Severe, Verified 07/17/17 15:44) Hives Past Medical History - Social History Smoking Status: Current Every Day Smoker Family History: CAD, DM, Malignancy - Past Medical History Cardiac Medical History: Reports: Hx Atrial Fibrillation, Hx Congestive Heart Failure - Diastolic, Hx Coronary Artery Disease, Hx Hypertension, Hx Heart Murmur Denies: Hx DVT, Hx Heart Attack, Hx Hypercholesterolemia, Hx Pulmonary Embolism Pulmonary Medical History: Reports: Hx Bronchitis, Hx COPD, Hx Pneumonia Denies: Hx Asthma, Hx Sleep Apnea, Hx Tuberculosis Neurological Medical History: Denies: Hx Seizures Endocrine Medical History: Reports: Hx Diabetes Mellitus Type 2 - diet controlled and metformin. Denies: Hx Diabetes Mellitus Type 1, Hx Hyperthyroidism, Hx Hypothyroidism Renal/ Medical History: Denies: Hx Peritoneal Dialysis GI Medical History: Reports: Hx Diverticulitis, Hx Colonoscopy, Hx Endoscopy. Denies: Hx Cirrhosis, Hx Gastroesophageal Reflux Disease, Hx Hepatitis Musculoskeletal Medical History: Denies Hx Arthritis Psychiatric Medical History: Denies: Hx Depression Infectious Medical History: Denies: Hx C-Diff, Hx Hepatitis, Hx MRSA Past Surgical History: Reports: Hx Bowel Surgery - PYLORIC STENOSIS, Hx Cardiac Catheterization - x3, Hx Cardiac Surgery - ASD closure, Hx Section - x2 1980s, Hx Tubal Ligation, Other - polyp removed; closure of atrial septal defect.. Denies: Hx Hysterectomy, Hx Pacemaker - Immunizations Immunizations up to date: Yes Hx Diphtheria, Pertussis, Tetanus Vaccination: Yes Hx Pneumococcal Vaccination: 06/21/14 Physical Exam - Vital signs Vitals: Pulse Ox 96 07/12/18 11:55 Course - Re-evaluation Re-evalutation: 07/12/18 12:13 Vitals reviewed. Nursing notes reviewed. Patient is tachycardic in atrial fibrillation with RVR at presentation and was given Cardizem for rate control. She is currently anticoagulated on Pradaxa. Patient does have some wheezing bilaterally but is oxygenating on 2 L and in no acute respiratory distress. Albuterol will be held currently for concern of tachycardia in the setting of A. fib with RVR.. 07/12/18 13:26 Patient reevaluated and is having some improvement after rate control with Cardizem. Heart rate is currently 93. She is still oxygenating well on nasal cannula oxygen and in no acute distress. She was given Solu-Medrol for her COPD exacerbation. Chest x-ray shows no pulmonary vascular congestion or pneumonia. Patient appears euvolemic and I do not suspect congestive heart failure as a cause of her shortness of breath. She was hypoxic on ABG and is requiring continuous oxygen. She will be admitted to the hospital for further management. Case discussed with Dr. Galeana who accepted admission. Laboratory 07/12/18 07/12/18 07/12/18 12:07 12:07 12:07 WBC 6.6 RBC 5.03 Hgb 15.2 Hct 45.4 MCV 90 MCH 30.2 MCHC 33.5 RDW 15.1 H Plt Count 194 Seg Neutrophils % 77.8 Lymphocytes % 14.5 Monocytes % 7.1 Eosinophils % 0.2 Basophils % 0.4 Absolute Neutrophils 5.1 Absolute Lymphocytes 1.0 Absolute Monocytes 0.5 Absolute Eosinophils 0.0 Absolute Basophils 0.0 Carbonic Acid HCO3/H2CO3 Ratio ABG pH ABG pCO2 ABG pO2 ABG HCO3 ABG Total CO2 ABG O2 Saturation ABG Base Excess FiO2 Sodium 138.6 Potassium 4.1 Chloride 101 Carbon Dioxide 29 Anion Gap 9 BUN 20 Creatinine 0.69 Est GFR ( Amer) > 60 Est GFR (Non-Af Amer) > 60 Glucose 132 H Lactic Acid Calcium 9.5 Total Bilirubin 0.7 Direct Bilirubin 0.2 Neonat Total Bilirubin Not Reportable Neonat Direct Bilirubin Not Reportable Neonat Indirect Bili Not Reportable AST 34 ALT 23 Alkaline Phosphatase 72 Troponin I < 0.012 Total Protein 6.9 Albumin 4.5 Urine Color Urine Appearance Urine pH Ur Specific [place] Urine Protein Urine Glucose (UA) Urine Ketones Urine Blood Urine Nitrite Urine Bilirubin Urine Urobilinogen Ur Leukocyte Esterase Urine WBC (Auto) Urine RBC (Auto) U Hyaline Cast (Auto) Urine Bacteria (Auto) Squamous Epi Cells Auto Urine Mucus (Auto) Urine Ascorbic Acid 07/12/18 07/12/18 07/12/18 12:07 12:45 12:45 WBC RBC Hgb Hct MCV MCH MCHC RDW Plt Count Seg Neutrophils % Lymphocytes % Monocytes % Eosinophils % Basophils % Absolute Neutrophils Absolute Lymphocytes Absolute Monocytes Absolute Eosinophils Absolute Basophils Carbonic Acid 1.21 HCO3/H2CO3 Ratio 22:1 ABG pH 7.45 ABG pCO2 40.3 ABG pO2 65.9 L ABG HCO3 27.3 H ABG Total CO2 28.5 H ABG O2 Saturation 93.8 L ABG Base Excess 3.0 FiO2 2L Sodium Potassium Chloride Carbon Dioxide Anion Gap BUN Creatinine Est GFR ( Amer) Est GFR (Non-Af Amer) Glucose Lactic Acid 1.8 Calcium Total Bilirubin Direct Bilirubin Neonat Total Bilirubin Neonat Direct Bilirubin Neonat Indirect Bili AST ALT Alkaline Phosphatase Troponin I Total Protein Albumin Urine Color YELLOW Urine Appearance CLOUDY Urine pH 5.0 Ur Specific [place] 1.025 Urine Protein NEGATIVE Urine Glucose (UA) NEGATIVE Urine Ketones NEGATIVE Urine Blood MODERATE H Urine Nitrite NEGATIVE Urine Bilirubin NEGATIVE Urine Urobilinogen 2.0 H Ur Leukocyte Esterase NEGATIVE Urine WBC (Auto) 5 Urine RBC (Auto) 2 U Hyaline Cast (Auto) 11 Urine Bacteria (Auto) 3+ Squamous Epi Cells Auto 11 Urine Mucus (Auto) MANY Urine Ascorbic Acid NEGATIVE Chest X-Ray 07/12/18 11:55 IMPRESSION: Stable appearance of the chest with marked pulmonary arterial enlargement. No definite acute cardiopulmonary process. - Vital Signs Vital signs: Temp Pulse Resp BP Pulse Ox 98.2 F 19 109/74 95 07/12/18 12:01 07/12/18 12:01 07/12/18 12:01 07/12/18 12:01 - Laboratory Result Diagrams: 07/12/18 12:07 07/12/18 12:07 Laboratory results interpreted by me: 07/12/18 07/12/18 07/12/18 12:07 12:07 12:45 RDW 15.1 H ABG pO2 65.9 L ABG HCO3 27.3 H ABG Total CO2 28.5 H ABG O2 Saturation 93.8 L Glucose 132 H Urine Blood Urine Urobilinogen 07/12/18 12:45 RDW ABG pO2 ABG HCO3 ABG Total CO2 ABG O2 Saturation Glucose Urine Blood MODERATE H Urine Urobilinogen 2.0 H Critical Care Note - Critical Care Note Total time excluding time spent on procedures (mins): 35 Comments: Critical care time 35 exclusive from separate billable procedures for a patient requiring complex medical decision making, and high potential for clinical deterioration. Time spent obtaining history from patient or surrogate, discussions with consultants, development of treatment plan with patient or surrogate, evaluation of patient's response to treatment, examination of patient, ordering and performing treatments and interventions, ordering and review of laboratory studies, re-evaluation of patient's condition, ordering and review of radiographic studies and review of old charts Discharge - Discharge Clinical Impression: Atrial fibrillation with RVR, COPD exacerbation, Hypoxia Condition: Stable Disposition: ADMITTED INPATIENT Admitting Provider: Hospitalist Unit Admitted: Telemetry
[2018-07-12 12:22] LABS: ABSOLUTE MONOCYTES (AUTO) 0.5 10^3/uL (0.1-1.4); ABSOLUTE NEUT (AUTO) 5.1 10^3/uL (1.7-8.2); BASOPHILS % (AUTO) 0.4 % (0-2); EOSINOPHILS % (AUTO) 0.2 % (0-6); HEMATOCRIT 45.4 % (36.0-47.0); HEMOGLOBIN 15.2 g/dL (12.0-15.5); LYMPHOCYTES % (AUTO) 14.5 % (13-45); MEAN CORPUSCULAR HEMOGLOBIN 30.2 pg (27.0-33.4); MEAN CORPUSCULAR HGB CONC 33.5 g/dL (32.0-36.0); MEAN CORPUSCULAR VOLUME 90 fl (80-97); MONOCYTES % (AUTO) 7.1 % (3-13); PLATELET COUNT 194 10^3/uL (150-450); RED BLOOD COUNT 5.03 10^6/uL (3.72-5.28); RED CELL DISTRIBUTION WIDTH 15.1 % (11.5-14.0); SEGMENTED NEUTROPHILS % (AUTO) 77.8 % (42-78); TOTAL CELLS COUNTED % (AUTO) 100 %; WHITE BLOOD COUNT 6.6 10^3/uL (4.0-10.5)
[2018-07-12 12:38] LABS: ALANINE AMINOTRANSFERASE 23 U/L (9-52); ALBUMIN 4.5 g/dL (3.5-5.0); ALKALINE PHOSPHATASE 72 U/L (38-126); ANION GAP 9 (5-19); ASPARTATE AMINO TRANSFERASE 34 U/L (14-36); BILIRUBIN,DIRECT 0.2 mg/dL (0.0-0.4); BILIRUBIN,TOTAL 0.7 mg/dL (0.2-1.3); BLOOD UREA NITROGEN 20 mg/dL (7-20); CALCIUM 9.5 mg/dL (8.4-10.2); CARBON DIOXIDE 29 mmol/L (22-30); CHLORIDE 101 mmol/L (98-107); GLUCOSE 132 mg/dL (75-110); POTASSIUM 4.1 mmol/L (3.6-5.0); SODIUM 138.6 mmol/L (137-145); TOTAL PROTEIN 6.9 g/dL (6.3-8.2)
--- NOTE | 2018-07-12 12:50 | RADIOLOGY REPORT (SQ) ---
EXAM DESCRIPTION: CHEST SINGLE VIEW COMPLETED DATE/TIME: 07/12/2018 12:32 pm REASON FOR STUDY: bed 2 db COMPARISON: 07/12/2018, 08/28/16 EXAM PARAMETERS: NUMBER OF VIEWS: One view. TECHNIQUE: Single frontal radiographic view of the chest acquired. RADIATION DOSE: NA LIMITATIONS: None. FINDINGS: LUNGS AND PLEURA: Unchanged linear left mid lung opacity, likely scarring. Stable chronic changes about the right hilum. No definite airspace disease. No significant pleural effusion. No pneumothorax. MEDIASTINUM AND HILAR STRUCTURES: Unchanged contour. HEART AND VASCULAR STRUCTURES: Enlarged cardiac silhouette with unchanged enlarged pulmonary arteries bilaterally, right greater than left. BONES: No acute findings. HARDWARE: Atrial septal occlusion device again noted. OTHER: No other significant finding. IMPRESSION: Stable appearance of the chest with marked pulmonary arterial enlargement. No definite acute cardiopulmonary process. TECHNICAL DOCUMENTATION: JOB ID: [id number] [employer]- All Rights Reserved Reading location - IP/workstation name: [email or web address]
[2018-07-12 12:56] LABS: ARTERIAL BLOOD H2CO3 1.21 mmol/L (1.05-1.35); ARTERIAL BLOOD HCO3 27.3 mmol/L (20-24); ARTERIAL BLOOD O2 SATURATION 93.8 % (94-98); ARTERIAL BLOOD PCO2 40.3 mmHg (35-45); ARTERIAL BLOOD PH 7.45 (7.35-7.45); ARTERIAL BLOOD PO2 65.9 mmHg (80-100); ARTERIAL BLOOD TOTAL CO2 28.5 mmol/L (21-25)
[2018-07-12 12:58] LABS: ARTERIAL BLOOD FIO2 2L
[2018-07-12 13:05] LABS: APPEARANCE,URINE CLOUDY; BILIRUBIN,URINE NEGATIVE (NEGATIVE); GLUCOSE, URINE NEGATIVE (NEGATIVE); KETONES,URINE NEGATIVE (NEGATIVE); LEUKOCYTE ESTERASE,URINE NEGATIVE (NEGATIVE); NITRITE,URINE NEGATIVE (NEGATIVE); PROTEIN,URINE NEGATIVE (NEGATIVE); URINE SPECIFIC GRAVITY 1.025
[2018-07-12 13:10] LABS: COLOR,URINE YELLOW
[2018-07-12] MEDS ORDERED: METHYLPREDNISOLONE INJ 125 MG/2 ML SDV IV ONE (13:25)
[2018-07-12] MEDS: OXYCODONE-ACETAMINOPHEN 5-325 MG TABLET PO PRN ×2 (15:28→23:36)
[2018-07-12] MEDS: DILTIAZEM HCL 60 MG TABLET PO SCH ×2 (17:09→23:50)
[2018-07-12] MEDS: DABIGATRAN ETEXILATE 150 MG CAPSULE PO SCH (17:09)
[2018-07-12] MEDS ORDERED: ZAFIRLUKAST PO SCH (18:00)
[2018-07-12] MEDS ORDERED: GLUCAGON,HUMAN RECOMB 1 MG INJ IM PRN (18:34)
[2018-07-12] MEDS ORDERED: DEXTROSE 40% GEL 15 GM TUBE PO PRN ×2 (18:34)
[2018-07-12] MEDS ORDERED: DEXTROSE 50%-WATER 25 GM/50 ML DISP.SYRIN IV PRN ×2 (18:34)
--- NOTE | 2018-07-12 18:39 | PDOC H&P ---
History of Present Illness Admission Date/PCP: 07/12/18 13:35 ASCENCION CASH MD Patient complains of: Increasing shortness of breath with cough and chest pressure History of Present Illness: LEXX KIMBALL is a 62 year old female with a complex medical history including atrial fibrillation, congestive heart failure and chronic obstructive pulmonary disease. She reports that she began having mild shortness of breath yesterday. At approximately 2:00 this morning it was clearly worse. She feels like she cannot catch her breath. In addition she was having some central chest pressure. The pressure resolved on its own. She also reports feeling cold. She does not believe that she had a fever. On admission to the emergency department she was found to be in atrial fibrillation with rapid ventricular response. She is on diltiazem and Pradaxa as well as digoxin. She did not take her medications this morning. She has a history of a PFO that was closed at [facility] approximately 6 years ago. Her typical exacerbation of congestive heart failure is accompanied by market swelling in her legs. This is not the typical presentation. She does report that this is more in line with an exacerbation of her COPD. She is diabetic and controls her sugars with metformin and diet. She still smokes despite her plethora of illnesses. She was administered intrav enous diltiazem and this has achieved good heart rate control. She will be admitted to the hospitalist service. Past Medical History Cardiac Medical History: Reports: Atrial Fibrillation, Congestive Heart Failure - Diastolic, Coronary Artery Disease, Hypertension, Heart Murmur Denies: DVT, Myocardial Infarction, Hyperlipidema, Pulmonary Embolism Pulmonary Medical History: Reports: Bronchitis, Chronic Obstructive Pulmonary Disease (COPD), Pneumonia Denies: Asthma, Sleep Apnea, Tuberculosis EENT Medical History: Denies: Eyes, Ears, Nose, Throat Neurological Medical History: Denies: Ischemic CVA, Seizures Endocrine Medical History: Reports: Diabetes Mellitus Type 2 - diet controlled and metformin Denies: Diabetes Mellitus Type 1, Hyperthyroidism, Hypothyroidism Renal/ Medical History: Denies: Chronic Kidney Disease Malignancy Medical History: Reports: None GI Medical History: Reports: Diverticulitis Denies: Cirrhosis, Gastroesophageal Reflux Disease, Hepatitis Musculoskeltal Medical History: Denies: Arthritis Skin Medical History: Denies: Eczema, Psoriasis Psychiatric Medical History: Reports: Tobacco Dependency Denies: Depression Traumatic Medical History: Reports: None Hematology: Denies: Anemia, Hemophilia, Bleeding Tendencies Infectious Medical History: Denies: Clostridium Difficile, Methicillin-Resistant Staph Aureus Past Surgical History Past Surgical History: Reports: Cardiac Catheterization - x3, Section - x2 1980s, Tubal Ligation, Other - polyp removed; closure of atrial septal defect. Denies: Hysterectomy, Pacemaker Social History Information Source: Patient Lives with: Spouse/Significant other Smoking Status: Current Every Day Smoker Frequency of Alcohol Use: None Hx Recreational Drug Use: No Drugs: None Hx Prescription Drug Abuse: No - Advance Directive Resuscitation Status: Full Code Surrogate healthcare decision maker:: Has designated her fianc Mr. Eric Goldstein as the decision maker. She does not have a formal document outlining healthcare choices. Family History Family History: CAD, DM, Malignancy Parental Family History Reviewed: Yes Children Family History Reviewed: Yes Sibling(s) Family History Reviewed.: Yes Medication/Allergy Home Medications: Albuterol Sulfate [Proair HFA Inhalation Aerosol 8.5 gm MDI] 2 puff IH Q4HP PRN 07/12/18 Albuterol Sulfate [Ventolin 0.042% Neb 1.25 mg/3 mL Ampul] 1 vial NEB Q4HP PRN 07/12/18 Dabigatran Etexilate Mesylate [Pradaxa 150 mg Capsule] 150 mg PO BID 07/12/18 Digoxin [Lanoxin 0.125 mg Tablet] 0.125 mg PO DAILY 07/12/18 Diltiazem HCl [Cardizem Cd 180 mg Capsule] 180 mg PO DAILY 07/12/18 Docusate Sodium [Colace 100 mg Capsule] 100 mg PO DAILY 07/12/18 Fluticasone/Umeclidin/Vilanter [Trelegy 100-62.5-25 Mcg Ellipta 14 Dose/Dpi] 1 puff IH DAILY 07/12/18 Metformin HCl [Glucophage 500 mg Tablet] 500 mg PO BID 07/12/18 Ranitidine HCl [Zantac 150 mg Tablet] 150 mg PO QHS 07/12/18 Zafirlukast [Accolate 20 mg Tablet] 40 mg PO BID 07/12/18 Allergies/Adverse Reactions: ampicillin [Ampicillin] Allergy (Severe, Verified 07/17/17 15:44) Hives Penicillins Allergy (Severe, Verified 07/17/17 15:44) Hives tetracycline [Tetracycline] Allergy (Severe, Verified 07/17/17 15:44) Hives Review of Systems Constitutional: PRESENT: fatigue. ABSENT: fever(s), night sweats Eyes: ABSENT: visual disturbances Ears: ABSENT: hearing changes Nose, Mouth, and Throat: PRESENT: sore throat - From coughing. ABSENT: mouth pain Cardiovascular: PRESENT: chest pain, dyspnea on exertion, palpitations. ABSENT: edema Respiratory: PRESENT: cough, dyspnea, sputum - White. ABSENT: hemoptysis Gastrointestinal: ABSENT: abdominal pain, diarrhea, nausea, vomiting Genitourinary: ABSENT: dysuria, hematuria Musculoskeletal: ABSENT: deformity Integumentary: ABSENT: lesions, rash Neurological: ABSENT: abnormal speech, confusion, focal weakness, tingling, tremor(s), vertigo Psychiatric: ABSENT: anxiety, depression, hallucinations Endocrine: ABSENT: cold intolerance, heat intolerance Hematologic/Lymphatic: ABSENT: easy bleeding, easy bruising Allergic/Immunologic: ABSENT: seasonal rhinorrhea Physical Exam Vital Signs: Temp Pulse Resp BP Pulse Ox 98.2 F 20 99/66 L 90 L 07/12/18 12:01 07/12/18 16:43 07/12/18 15:21 07/12/18 16:43 Intake & Output 07/11/18 07/12/18 07/13/18 06:59 06:59 06:59 Weight 78.018 kg General appearance: PRESENT: cooperative, mild distress - Mild to moderate distress, well-developed Head exam: PRESENT: atraumatic, normocephalic Eye exam: PRESENT: conjunctiva pink, EOMI. ABSENT: scleral icterus Ear exam: PRESENT: normal external ear exam Mouth exam: PRESENT: dry mucosa, tongue midline Neck exam: ABSENT: carotid bruit, JVD, lymphadenopathy Respiratory exam: PRESENT: rhonchi, symmetrical, wheezes. ABSENT: accessory muscle use, crackles, rales Cardiovascular exam: PRESENT: irregular rhythm GI/Abdominal exam: PRESENT: normal bowel sounds, soft. ABSENT: distended, tenderness Rectal exam: PRESENT: deferred Extremities exam: ABSENT: calf tenderness Musculoskeletal exam: PRESENT: normal inspection Neurological exam: PRESENT: alert, awake, oriented to person, oriented to place, oriented to time, oriented to situation, CN II-XII grossly intact Psychiatric exam: PRESENT: appropriate affect. ABSENT: agitated, anxious Focused psych exam: ABSENT: restlessness Skin exam: PRESENT: dry, warm. ABSENT: mottled Results Laboratory Results: 07/12/18 12:07 07/12/18 12:07 07/12/18 07/12/18 07/12/18 12:07 12:07 12:07 WBC 6.6 RBC 5.03 Hgb 15.2 Hct 45.4 MCV 90 MCH 30.2 MCHC 33.5 RDW 15.1 H Plt Count 194 Seg Neutrophils % 77.8 Lymphocytes % 14.5 Monocytes % 7.1 Eosinophils % 0.2 Basophils % 0.4 Absolute Neutrophils 5.1 Absolute Lymphocytes 1.0 Absolute Monocytes 0.5 Absolute Eosinophils 0.0 Absolute Basophils 0.0 Carbonic Acid HCO3/H2CO3 Ratio ABG pH ABG pCO2 ABG pO2 ABG HCO3 ABG O2 Saturation ABG Base Excess FiO2 Sodium 138.6 Potassium 4.1 Chloride 101 Carbon Dioxide 29 Anion Gap 9 BUN 20 Creatinine 0.69 Est GFR ( Amer) > 60 Est GFR (Non-Af Amer) > 60 Glucose 132 H Lactic Acid 1.8 Calcium 9.5 Total Bilirubin 0.7 AST 34 ALT 23 Alkaline Phosphatase 72 Total Protein 6.9 Albumin 4.5 Urine Color Urine Appearance Urine pH Ur Specific [place] Urine Protein Urine Glucose (UA) Urine Ketones Urine Blood Urine Nitrite Ur Leukocyte Esterase Urine WBC (Auto) Urine RBC (Auto) 07/12/18 07/12/18 12:45 12:45 WBC RBC Hgb Hct MCV MCH MCHC RDW Plt Count Seg Neutrophils % Lymphocytes % Monocytes % Eosinophils % Basophils % Absolute Neutrophils Absolute Lymphocytes Absolute Monocytes Absolute Eosinophils Absolute Basophils Carbonic Acid 1.21 HCO3/H2CO3 Ratio 22:1 ABG pH 7.45 ABG pCO2 40.3 ABG pO2 65.9 L ABG HCO3 27.3 H ABG O2 Saturation 93.8 L ABG Base Excess 3.0 FiO2 2L Sodium Potassium Chloride Carbon Dioxide Anion Gap BUN Creatinine Est GFR ( Amer) Est GFR (Non-Af Amer) Glucose Lactic Acid Calcium Total Bilirubin AST ALT Alkaline Phosphatase Total Protein Albumin Urine Color YELLOW Urine Appearance CLOUDY Urine pH 5.0 Ur Specific [place] 1.025 Urine Protein NEGATIVE Urine Glucose (UA) NEGATIVE Urine Ketones NEGATIVE Urine Blood MODERATE H Urine Nitrite NEGATIVE Ur Leukocyte Esterase NEGATIVE Urine WBC (Auto) 5 Urine RBC (Auto) 2 07/12/18 12:07 Troponin I < 0.012 Impressions: Chest X-Ray 01/22/19 11:55 IMPRESSION: Stable appearance of the chest with marked pulmonary arterial enlargement. No definite acute cardiopulmonary process. Assessment & Plan - Diagnosis (1) Atrial fibrillation with RVR Is this a current diagnosis for this admission?: Yes Plan: IV diltiazem with diltiazem infusion has achieved good control. Because she did not take her medications this morning I administered 0.25 mg of digoxin intravenously and will use 60 mg of diltiazem every 6 hours and if this proves to be too high a dose I will wean her back. She is on extended release 180 mg daily and hopefully I can get her back to that dose. The exacerbation of her COPD most likely triggered this in addition to not taking her medications. Bec ause of the chest discomfort I will order serial troponins but it is most likely the rapid A. fib causing the problem. Her blood pressure was on the low side and so there are parameters on the diltiazem. Hopefully with better rate control her pressure will improve. (2) Acute exacerbation of chronic obstructive pulmonary disease (COPD) Is this a current diagnosis for this admission?: Yes Plan: For the acute exacerbation we will use scheduled duo nebs as well as budesonide. As needed nebulizer treatments will be available. She will receive intravenous steroid therapy as well. We will need to monitor her diabetes while on the steroids. I have ordered guaifenesin. We will utilize BiPAP if necessary. We discussed why she should not smoke as well. Incredibly, she started to have a cigarette this morning prior to coming to the hospital. We will hold off on antibiotics for right now. We will recheck a white blood cell count. She is coughing up white mucus. (3) Diabetes mellitus type 2 in nonobese Is this a current diagnosis for this admission?: Yes Plan: I will continue her metformin and a consistent carbohydrate diet. I have ordered a Humalog sliding scale as well. (4) Diastolic CHF Qualifiers: Qualified Code(s): I50.32 - Chronic diastolic (congestive) heart failure Is this a current diagnosis for this admission?: Yes Plan: She does have a history of chronic diastolic heart failure. We will monitor her intake and output. I will avoid excessive IV fluids. She may need diuretic therapy and this will be a daily decision at this time. - Time Time Spent: 50 to 70 Minutes Smoking Cessation Education: 3 to 10 minutes Medications reviewed and adjusted accordingly: Yes - Inpatient Certification Based on my medical assessment, after consideration of the patient's comorbidities, presenting symptoms, or acuity I expect that the services needed warrant INPATIENT care.: Yes I certify that my determination is in accordance with my understanding of Medicare's requirements for reasonable and necessary INPATIENT services [42 CFR 412.3e].: Yes Medical Necessity: Significant Comorbidiites Make Outpatient Treatment Too Risky, Need For Continuous Telemetry Monitoring, Need for Nebulizer Therapy and Monitoring of Response Post Hospital Care: D/C [employer] Supervisor Documentation
[2018-07-12] MEDS: METFORMIN HCL 500 MG TABLET PO SCH (18:46)
[2018-07-12] MEDS: INSULIN LISPRO 100 UNIT/ML 3 ML VIAL SUBCUT PRN ×2 (18:47→22:25)
--- NOTE | 2018-07-12 19:41 | EKG REPORT ---
SEVERITY:- ABNORMAL ECG - ATRIAL FIBRILLATION, V-RATE 100-170 CONSIDER RVH W/ SECONDARY REPOL ABNORMALITY NONSPECIFIC T ABNORMALITIES, LATERAL LEADS : Confirmed by: Nisreen Posadas MD 12-Jul-2018 19:39:48
[2018-07-12] MEDS: ONDANSETRON 4 MG TAB.RAPDIS PO PRN (20:17)
[2018-07-12] MEDS: IPRATROPIUM/ALBUTEROL 0.5-2.5 MG/3 ML AMPUL NEB SCH (20:17)
[2018-07-12] MEDS: BUDESONIDE NEB 0.5 MG/2 ML AMPUL NEB SCH (20:17)
[2018-07-12] MEDS: GUAIFENESIN 600 MG TABLET.SA PO SCH (22:23)
[2018-07-12] MEDS: ACETAMINOPHEN 325 MG TABLET PO PRN (22:23)
[2018-07-12] MEDS: FAMOTIDINE 20 MG TABLET PO SCH (22:23)
[2018-07-12] MEDS: METHYLPREDNISOLONE INJ 125 MG/2 ML SDV IV SCH (22:25)
[2018-07-13] MEDS: IPRATROPIUM/ALBUTEROL 0.5-2.5 MG/3 ML AMPUL NEB SCH ×6 (00:07→20:27)
[2018-07-13] MEDS: ONDANSETRON 4 MG TAB.RAPDIS PO PRN (02:45)
[2018-07-13] MEDS: LEVALBUTEROL HCL NEB 1.25 MG/3 ML AMPUL NEB PRN (05:14)
[2018-07-13 05:33] LABS: HEMATOCRIT 39.7 % (36.0-47.0); HEMOGLOBIN 13.6 g/dL (12.0-15.5); MEAN CORPUSCULAR HEMOGLOBIN 30.6 pg (27.0-33.4); MEAN CORPUSCULAR HGB CONC 34.4 g/dL (32.0-36.0); MEAN CORPUSCULAR VOLUME 89 fl (80-97); PLATELET COUNT 174 10^3/uL (150-450); RED BLOOD COUNT 4.45 10^6/uL (3.72-5.28); RED CELL DISTRIBUTION WIDTH 15.1 % (11.5-14.0); WHITE BLOOD COUNT 4.2 10^3/uL (4.0-10.5)
[2018-07-13] MEDS: DILTIAZEM HCL 60 MG TABLET PO SCH ×4 (05:37→23:17)
[2018-07-13 06:07] LABS: ANION GAP 10 (5-19); BLOOD UREA NITROGEN 25 mg/dL (7-20); CALCIUM 9.6 mg/dL (8.4-10.2); CARBON DIOXIDE 29 mmol/L (22-30); CHLORIDE 99 mmol/L (98-107); GLUCOSE 186 mg/dL (75-110); POTASSIUM 4.1 mmol/L (3.6-5.0); SODIUM 138.3 mmol/L (137-145)
--- NOTE | 2018-07-13 07:28 | EKG REPORT ---
SEVERITY:- ABNORMAL ECG - ATRIAL FIBRILLATION, V-RATE 59-99 INCOMPLETE RIGHT BUNDLE BRANCH BLOCK : Confirmed by: Nisreen Posadas MD 13-Jul-2018 07:27:33
[2018-07-13] MEDS: BUDESONIDE NEB 0.5 MG/2 ML AMPUL NEB SCH ×2 (08:11→20:27)
[2018-07-13] MEDS: INSULIN LISPRO 100 UNIT/ML 3 ML VIAL SUBCUT PRN ×3 (08:35→19:11)
[2018-07-13] MEDS ORDERED: OXYCODONE-ACETAMINOPHEN 5-325 MG TABLET PO ONE (09:00)
[2018-07-13] MEDS ORDERED: OXYCODONE HCL IR 5 MG TABLET PO ONE (09:00)
[2018-07-13] MEDS: FAMOTIDINE 20 MG TABLET PO SCH ×2 (09:26→21:09)
[2018-07-13] MEDS: DABIGATRAN ETEXILATE 150 MG CAPSULE PO SCH ×2 (09:26→17:41)
[2018-07-13] MEDS: METFORMIN HCL 500 MG TABLET PO SCH ×2 (09:26→17:41)
[2018-07-13] MEDS: DOCUSATE SODIUM 100 MG CAPSULE PO SCH (09:26)
[2018-07-13] MEDS: GUAIFENESIN 600 MG TABLET.SA PO SCH ×2 (09:27→21:03)
[2018-07-13] MEDS: METHYLPREDNISOLONE INJ 125 MG/2 ML SDV IV SCH ×2 (09:27→21:04)
[2018-07-13] MEDS: PROMETHAZINE HCL INJ 25 MG/1 ML VIAL IV PRN (09:29)
[2018-07-13] MEDS: DIGOXIN 0.125 MG TABLET PO SCH (09:37)
[2018-07-13] MEDS ORDERED: DIGOXIN 0.125 MG TABLET PO SCH (10:00)
--- NOTE | 2018-07-13 19:41 | PDOC PROGRESS REPORT ---
Subjective Progress Note for:: 07/13/17 Subjective:: No acute events overnight patient could not get a good night sleep stating possibly due to steroids that she is receiving for her COPD exacerbation. Reason For Visit: ATRIAL FIBRILLATION WITH RVR,COPD Physical Exam Vital Signs: Temp Pulse Resp BP Pulse Ox 98.1 F 103 H 18 92/72 L 93 07/13/18 15:41 07/13/18 16:08 07/13/18 16:08 07/13/18 15:41 07/13/18 16:08 Intake & Output 07/12/18 07/13/18 07/14/18 06:59 06:59 06:59 Intake Total 125 1564 Output Total 900 Balance 125 664 Weight 79.9 kg General appearance: PRESENT: no acute distress, well-developed, well-nourished Respiratory exam: PRESENT: clear to auscultation rylee, prolonged expiratory phas, wheezes. ABSENT: rales, rhonchi Cardiovascular exam: PRESENT: irregular rhythm, RRR. ABSENT: diastolic murmur, rubs, systolic murmur GI/Abdominal exam: PRESENT: normal bowel sounds, soft. ABSENT: distended, guarding, mass, organolmegaly, rebound, tenderness Results Laboratory Results: 07/13/18 04:53 07/13/18 04:53 07/13/18 07/13/18 07/13/18 04:53 04:53 04:53 WBC 4.2 RBC 4.45 Hgb 13.6 Hct 39.7 MCV 89 MCH 30.6 MCHC 34.4 RDW 15.1 H Plt Count 174 Sodium 138.3 Potassium 4.1 Chloride 99 Carbon Dioxide 29 Anion Gap 10 BUN 25 H Creatinine 0.58 Est GFR ( Amer) > 60 Est GFR (Non-Af Amer) > 60 Glucose 186 H Calcium 9.6 Magnesium 1.7 TSH 0.49 07/12/18 12:07 Troponin I < 0.012 Impressions: Chest X-Ray 07/12/18 11:55 IMPRESSION: Stable appearance of the chest with marked pulmonary arterial enlargement. No definite acute cardiopulmonary process. Assessment & Plan - Diagnosis (1) Atrial fibrillation with RVR Is this a current diagnosis for this admission?: Yes Plan: Rate controlled. Continue Cardizem and digoxin. Titrate dosage as tolerated.\ Continue dabigatran. (2) Acute exacerbation of chronic obstructive pulmonary disease (COPD) Is this a current diagnosis for this admission?: Yes Plan: Continue duo nebs and budesonide. BiPAP as needed. Continue steroids. (3) Diabetes mellitus type 2 in nonobese Is this a current diagnosis for this admission?: Yes Plan: Diabetic diet, sliding insulin scale. Adjust dosage as needed. Restart metformin on discharge. (4) Diastolic CHF Is this a current diagnosis for this admission?: Yes Plan: Monitor volume status. Restart home meds.
[2018-07-13] MEDS: OXYCODONE-ACETAMINOPHEN 5-325 MG TABLET PO PRN (21:04)
[2018-07-14] MEDS: IPRATROPIUM/ALBUTEROL 0.5-2.5 MG/3 ML AMPUL NEB SCH ×6 (00:46→19:54)
[2018-07-14] MEDS: DILTIAZEM HCL 60 MG TABLET PO SCH ×3 (06:06→17:52)
[2018-07-14] MEDS: ACETAMINOPHEN 325 MG TABLET PO PRN (07:47)
[2018-07-14 08:06] LABS: ALANINE AMINOTRANSFERASE 37 U/L (9-52); ALBUMIN 4.3 g/dL (3.5-5.0); ALKALINE PHOSPHATASE 70 U/L (38-126); ANION GAP 11 (5-19); ASPARTATE AMINO TRANSFERASE 52 U/L (14-36); BILIRUBIN,DIRECT 0.2 mg/dL (0.0-0.4); BILIRUBIN,TOTAL 0.3 mg/dL (0.2-1.3); BLOOD UREA NITROGEN 29 mg/dL (7-20); CALCIUM 9.6 mg/dL (8.4-10.2); CARBON DIOXIDE 29 mmol/L (22-30); CHLORIDE 98 mmol/L (98-107); GLUCOSE 124 mg/dL (75-110); POTASSIUM 4.5 mmol/L (3.6-5.0); SODIUM 138.1 mmol/L (137-145); TOTAL PROTEIN 6.5 g/dL (6.3-8.2)
[2018-07-14] MEDS: BUDESONIDE NEB 0.5 MG/2 ML AMPUL NEB SCH ×2 (08:11→19:54)
[2018-07-14] MEDS: FAMOTIDINE 20 MG TABLET PO SCH ×2 (09:48→22:50)
[2018-07-14] MEDS: METFORMIN HCL 500 MG TABLET PO SCH ×2 (09:48→17:53)
[2018-07-14] MEDS: DABIGATRAN ETEXILATE 150 MG CAPSULE PO SCH ×2 (09:48→17:52)
[2018-07-14] MEDS: DIGOXIN 0.125 MG TABLET PO SCH (09:48)
[2018-07-14] MEDS: METHYLPREDNISOLONE INJ 125 MG/2 ML SDV IV SCH ×2 (09:49→22:15)
[2018-07-14] MEDS: DOCUSATE SODIUM 100 MG CAPSULE PO SCH ×2 (09:51→17:53)
[2018-07-14] MEDS: PROMETHAZINE HCL INJ 25 MG/1 ML VIAL IV PRN ×3 (09:51→22:17)
[2018-07-14] MEDS: GUAIFENESIN 600 MG TABLET.SA PO SCH ×2 (09:53→22:17)
[2018-07-14] MEDS ORDERED: BISACODYL 5 MG TABEC PO ONE (11:30)
[2018-07-14] MEDS: INSULIN LISPRO 100 UNIT/ML 3 ML VIAL SUBCUT PRN ×2 (12:14→17:53)
[2018-07-14] MEDS: OXYCODONE-ACETAMINOPHEN 5-325 MG TABLET PO PRN (17:55)
--- NOTE | 2018-07-14 19:25 | PDOC PROGRESS REPORT ---
Subjective Progress Note for:: 07/14/18 Subjective:: 07/14/2018. No acute events overnight. Patient stating that she is feeling much in her shortness of breath has improved. Patient is ambulatory, p.o. tolerant and having normal bowel and bladder movements. Denies fever, chills, nausea, vomiting, diarrhea or any constipation. Reason For Visit: ATRIAL FIBRILLATION WITH RVR,COPD Physical Exam Vital Signs: Temp Pulse Resp BP Pulse Ox 97.4 F 102 H 20 128/71 H 99 07/14/18 15:30 07/14/18 15:30 07/14/18 15:30 07/14/18 15:30 07/14/18 15:30 Intake & Output 07/13/18 07/14/18 07/15/18 06:59 06:59 06:59 Intake Total 125 1564 1257 Output Total 900 1500 Balance 125 664 -243 Weight 79.9 kg 82.2 kg General appearance: PRESENT: no acute distress, well-developed, well-nourished Head exam: PRESENT: atraumatic, normocephalic Respiratory exam: PRESENT: clear to auscultation rylee, prolonged expiratory phas, wheezes. ABSENT: rales, rhonchi Cardiovascular exam: PRESENT: irregular rhythm. ABSENT: diastolic murmur, rubs, systolic murmur GI/Abdominal exam: PRESENT: normal bowel sounds, soft. ABSENT: distended, guarding, mass, organolmegaly, rebound, tenderness Extremities exam: PRESENT: full ROM. ABSENT: calf tenderness, clubbing, pedal edema Musculoskeletal exam: PRESENT: ambulatory, full ROM, normal inspection Neurological exam: PRESENT: alert, awake, oriented to person, oriented to place, oriented to time, oriented to situation, CN II-XII grossly intact. ABSENT: motor sensory deficit Skin exam: PRESENT: dry, intact, warm. ABSENT: cyanosis, rash Results Laboratory Results: 07/13/18 04:53 07/14/18 06:40 07/14/18 06:40 Sodium 138.1 Potassium 4.5 Chloride 98 Carbon Dioxide 29 Anion Gap 11 BUN 29 H Creatinine 0.51 L Est GFR ( Amer) > 60 Est GFR (Non-Af Amer) > 60 Glucose 124 H Calcium 9.6 Total Bilirubin 0.3 AST 52 H ALT 37 Alkaline Phosphatase 70 Total Protein 6.5 Albumin 4.3 07/12/18 12:07 Troponin I < 0.012 Impressions: Chest X-Ray 07/12/18 11:55 IMPRESSION: Stable appearance of the chest with marked pulmonary arterial enlargement. No definite acute cardiopulmonary process. Assessment & Plan - Diagnosis (1) Atrial fibrillation with RVR Is this a current diagnosis for this admission?: Yes Plan: Rate controlled. Will switch back to Cardizem extended release 180 mg p.o. daily. Continue dabigatran. If vitals are stable will discharge home tomorrow. (2) Acute exacerbation of chronic obstructive pulmonary disease (COPD) Is this a current diagnosis for this admission?: Yes Plan: Patient still having mild expiratory wheezes. Saturating 9 9% on 4 L FiO2 of 32%. Continue duo nebs and budesonide. BiPAP as needed. Continue steroids. Patient still smoking and was strongly counseled about quitting smoking. (3) Diabetes mellitus type 2 in nonobese Is this a current diagnosis for this admission?: Yes Plan: 12/15/2016 A1c 6.6%. Patient is not being treated for diabetes however she is having high blood glucose level likely due to steroids given for her COPD exacerbation. Continue Accu-Chek. Outpatient PCP follow-up. (4) Diastolic CHF Is this a current diagnosis for this admission?: Yes Plan: Monitor volume status. Restart home meds.
[2018-07-15] MEDS: IPRATROPIUM/ALBUTEROL 0.5-2.5 MG/3 ML AMPUL NEB SCH ×6 (00:36→21:07)
[2018-07-15] MEDS: LEVALBUTEROL HCL NEB 1.25 MG/3 ML AMPUL NEB PRN (06:23)
[2018-07-15 07:33] LABS: ALANINE AMINOTRANSFERASE 46 U/L (9-52); ALBUMIN 4.3 g/dL (3.5-5.0); ALKALINE PHOSPHATASE 66 U/L (38-126); ANION GAP 12 (5-19); ASPARTATE AMINO TRANSFERASE 42 U/L (14-36); BILIRUBIN,DIRECT 0.2 mg/dL (0.0-0.4); BILIRUBIN,TOTAL 0.3 mg/dL (0.2-1.3); BLOOD UREA NITROGEN 27 mg/dL (7-20); CALCIUM 9.5 mg/dL (8.4-10.2); CARBON DIOXIDE 29 mmol/L (22-30); CHLORIDE 97 mmol/L (98-107); GLUCOSE 244 mg/dL (75-110); POTASSIUM 4.8 mmol/L (3.6-5.0); SODIUM 137.5 mmol/L (137-145); TOTAL PROTEIN 6.4 g/dL (6.3-8.2)
[2018-07-15] MEDS: OXYCODONE-ACETAMINOPHEN 5-325 MG TABLET PO PRN ×2 (07:54→21:17)
[2018-07-15] MEDS: BENZOCAINE/MENTHOL SORE THROAT LOZENGE BUCCAL PRN ×2 (07:54→10:54)
[2018-07-15 08:27] LABS: HEMATOCRIT 40.1 % (36.0-47.0); HEMOGLOBIN 13.2 g/dL (12.0-15.5); MEAN CORPUSCULAR HEMOGLOBIN 29.9 pg (27.0-33.4); MEAN CORPUSCULAR HGB CONC 32.9 g/dL (32.0-36.0); MEAN CORPUSCULAR VOLUME 91 fl (80-97); PLATELET COUNT 193 10^3/uL (150-450); RED BLOOD COUNT 4.42 10^6/uL (3.72-5.28); RED CELL DISTRIBUTION WIDTH 15.4 % (11.5-14.0)
[2018-07-15 08:28] LABS: WHITE BLOOD COUNT 13.1 10^3/uL (4.0-10.5)
[2018-07-15] MEDS: INSULIN LISPRO 100 UNIT/ML 3 ML VIAL SUBCUT PRN (08:34)
[2018-07-15] MEDS ORDERED: MAG HYDROX/AL HYDROX/SIMETH SUSP 30 ML UDCUP PO ONE (09:00)
[2018-07-15] MEDS ORDERED: LIDOCAINE 2% VISCOUS SOLN 20 ML UDCUP PO ONE (09:00)
[2018-07-15] MEDS ORDERED: METOCLOPRAMIDE HCL ORAL SOLN 10 MG/10 ML UDCUP PO ONE (09:00)
[2018-07-15 09:05] LABS: ABSOLUTE LYMPHOCYTES# (MANUAL) 0.9 10^3/uL (0.5-4.7); ABSOLUTE MONOCYTES # (MANUAL) 0.3 10^3/uL (0.1-1.4); ABSOLUTE NEUTROPHILS# (MANUAL) 11.8 10^3/uL (1.7-8.2); BASOPHILS % (MANUAL) 0 % (0-2); EOSINOPHILS % (MANUAL) 1 % (0-6); LYMPHOCYTES % (MANUAL) 7 % (13-45); MONOCYTES % (MANUAL) 2 % (3-13); SEGMENTED NEUTROPHILS % (MAN) 90 % (42-78); TOTAL CELLS COUNTED 100
[2018-07-15 09:08] LABS: ANISOCYTOSIS SLIGHT; POLYCHROMASIA SLIGHT
[2018-07-15 09:11] LABS: PLATELET CLUMPS PRESENT; PLATELET COMMENT ADEQUATE
[2018-07-15] MEDS: BUDESONIDE NEB 0.5 MG/2 ML AMPUL NEB SCH ×2 (09:21→21:07)
[2018-07-15] MEDS: DABIGATRAN ETEXILATE 150 MG CAPSULE PO SCH ×2 (09:30→18:15)
[2018-07-15] MEDS: METFORMIN HCL 500 MG TABLET PO SCH ×2 (09:30→17:26)
[2018-07-15] MEDS: METHYLPREDNISOLONE INJ 125 MG/2 ML SDV IV SCH ×2 (09:30→21:17)
[2018-07-15] MEDS: GUAIFENESIN 600 MG TABLET.SA PO SCH ×2 (09:30→21:18)
[2018-07-15] MEDS: DOCUSATE SODIUM 100 MG CAPSULE PO SCH ×2 (09:30→17:42)
[2018-07-15] MEDS: FAMOTIDINE 20 MG TABLET PO SCH ×2 (09:30→21:18)
[2018-07-15] MEDS: DIGOXIN 0.125 MG TABLET PO SCH (09:31)
[2018-07-15] MEDS ORDERED: DILTIAZEM HCL 180 MG CAPSULE.CR PO SCH (10:00)
--- NOTE | 2018-07-15 10:42 | RADIOLOGY REPORT (SQ) ---
EXAM DESCRIPTION: CHEST SINGLE VIEW COMPLETED DATE/TIME: 07/15/2018 10:28 am REASON FOR STUDY: Chest Pain COMPARISON: Chest films 07/12/2018, 04/27/2018, 07/17/2017, 03/01/2017, 03/22/2016 CT chest 03/22/2016 EXAM PARAMETERS: NUMBER OF VIEWS: One view. TECHNIQUE: Single frontal radiographic view of the chest acquired. RADIATION DOSE: NA LIMITATIONS: None. FINDINGS: LUNGS AND PLEURA: Since the prior exams, patient has developed a thin walled cavitary lesi on in the right mid lung either in the superior segment lower lobe or inferior aspect right upper lob e. This measures almost 4 cm in diameter. Stable bandlike scarring in the left mid lung and right lung base just above the hemidiaphragms. No fluffy alveolar infiltrates worrisome for pulmonary edema or pneumonia. No gross pleural effusion or pneumothorax. MEDIASTINUM AND HILAR STRUCTURES: Stable enlarged central pulmonary arteries HEART AND VASCULAR STRUCTURES: Stable cardiomegaly with a ASD closure device BONES: No acute findings. HARDWARE: None in the chest. OTHER: No other significant finding. IMPRESSION: Interval development of a thin walled cavity in the right mid lung, either in the superi or segment right lower lobe or inferior aspect right upper lobe. Stable bandlike scarring in the left mid lung and right lung base. Marked cardiomegaly with prominent central pulmonary arteries TECHNICAL DOCUMENTATION: JOB ID: [id number] All Rights Reserved Reading location - IP/workstation name: [email or web address]
[2018-07-15] MEDS: LEVOFLOXACIN 500 MG/D5W RTU 500 MG/100 ML RTUPB IV SCH (12:44)
[2018-07-15] MEDS ORDERED: FUROSEMIDE INJ/PF 40 MG/4 ML SDV ONE ×2 (14:06→15:26)
[2018-07-15] MEDS ORDERED: DIGOXIN INJ 0.5 MG/2 ML AMPULE ONE (14:11)
[2018-07-15 14:28] LABS: ARTERIAL BLOOD BASE EXCESS 0.6 mmol/L; ARTERIAL BLOOD H2CO3 1.79 mmol/L (1.05-1.35); ARTERIAL BLOOD HCO3 28.6 mmol/L (20-24); ARTERIAL BLOOD O2 SATURATION 87.6 % (94-98); ARTERIAL BLOOD PCO2 59.5 mmHg (35-45); ARTERIAL BLOOD PO2 59.5 mmHg (80-100); ARTERIAL BLOOD TOTAL CO2 30.4 mmol/L (21-25)
[2018-07-15 14:32] LABS: ARTERIAL BLOOD FIO2 5L
[2018-07-15] MEDS ORDERED: DILTIAZEM HCL 60 MG TABLET PO ONE (14:45)
[2018-07-15] MEDS ORDERED: FUROSEMIDE INJ/PF 40 MG/4 ML SDV IV ONE (15:30)
[2018-07-15] MEDS ORDERED: DIGOXIN INJ 0.5 MG/2 ML AMPULE IV ONE (15:30)
[2018-07-15] MEDS: DILTIAZEM HCL/D5W 125 MG/125 ML RTUINJ IV PRN (15:44)
[2018-07-15] MEDS ORDERED: DILTIAZEM HCL 60 MG TABLET PO SCH (18:00)
[2018-07-15] MEDS: ONDANSETRON 4 MG TAB.RAPDIS PO PRN (21:17)
--- NOTE | 2018-07-15 22:57 | EKG REPORT ---
SEVERITY:- ABNORMAL ECG - ATRIAL FIBRILLATION, V-RATE 102-160 CONSIDER RVH W/ SECONDARY REPOL ABNORMALITY : Confirmed by: Nisreen Posadas MD 15-Jul-2018 22:57:08
[2018-07-16] MEDS: IPRATROPIUM/ALBUTEROL 0.5-2.5 MG/3 ML AMPUL NEB SCH ×7 (00:42→23:17)
[2018-07-16] MEDS ORDERED: DILTIAZEM HCL/D5W 125 MG/125 ML RTUINJ IV ONE (02:38)
[2018-07-16] MEDS: DILTIAZEM HCL/D5W 125 MG/125 ML RTUINJ IV PRN ×2 (05:21→15:41)
[2018-07-16 06:33] LABS: ABSOLUTE LYMPHOCYTES (AUTO) 0.8 10^3/uL (0.5-4.7); ABSOLUTE MONOCYTES (AUTO) 0.6 10^3/uL (0.1-1.4); ABSOLUTE NEUT (AUTO) 11.5 10^3/uL (1.7-8.2); HEMATOCRIT 38.7 % (36.0-47.0); HEMOGLOBIN 13.2 g/dL (12.0-15.5); LYMPHOCYTES % (AUTO) 5.8 % (13-45); MEAN CORPUSCULAR HEMOGLOBIN 30.5 pg (27.0-33.4); MEAN CORPUSCULAR HGB CONC 34.1 g/dL (32.0-36.0); MEAN CORPUSCULAR VOLUME 89 fl (80-97); MONOCYTES % (AUTO) 4.8 % (3-13); PLATELET COUNT 163 10^3/uL (150-450); RED BLOOD COUNT 4.33 10^6/uL (3.72-5.28); SEGMENTED NEUTROPHILS % (AUTO) 89.4 % (42-78); TOTAL CELLS COUNTED % (AUTO) 100 %; WHITE BLOOD COUNT 12.9 10^3/uL (4.0-10.5)
[2018-07-16 06:44] LABS: ARTERIAL BLOOD BASE EXCESS 8.2 mmol/L; ARTERIAL BLOOD FIO2 40%; ARTERIAL BLOOD H2CO3 1.39 mmol/L (1.05-1.35); ARTERIAL BLOOD HCO3 33.1 mmol/L (20-24); ARTERIAL BLOOD O2 SATURATION 90.9 % (94-98); ARTERIAL BLOOD PCO2 46.3 mmHg (35-45); ARTERIAL BLOOD PH 7.47 (7.35-7.45); ARTERIAL BLOOD PO2 56.5 mmHg (80-100); ARTERIAL BLOOD TOTAL CO2 34.5 mmol/L (21-25)
[2018-07-16 06:56] LABS: ALANINE AMINOTRANSFERASE 40 U/L (9-52); ALKALINE PHOSPHATASE 64 U/L (38-126); ANION GAP 10 (5-19); ASPARTATE AMINO TRANSFERASE 35 U/L (14-36); BILIRUBIN,DIRECT 0.3 mg/dL (0.0-0.4); BILIRUBIN,TOTAL 0.7 mg/dL (0.2-1.3); BLOOD UREA NITROGEN 29 mg/dL (7-20); CARBON DIOXIDE 34 mmol/L (22-30); CHLORIDE 92 mmol/L (98-107); GLUCOSE 201 mg/dL (75-110); POTASSIUM 4.6 mmol/L (3.6-5.0); SODIUM 136.3 mmol/L (137-145); TOTAL PROTEIN 6.2 g/dL (6.3-8.2)
[2018-07-16] MEDS: BUDESONIDE NEB 0.5 MG/2 ML AMPUL NEB SCH ×2 (08:23→19:03)
[2018-07-16] MEDS: INSULIN LISPRO 100 UNIT/ML 3 ML VIAL SUBCUT PRN ×3 (08:56→17:04)
[2018-07-16] MEDS: METHYLPREDNISOLONE INJ 125 MG/2 ML SDV IV SCH ×2 (09:37→21:41)
[2018-07-16] MEDS: DIGOXIN 0.125 MG TABLET PO SCH (09:38)
[2018-07-16] MEDS: LEVOFLOXACIN 500 MG/D5W RTU 500 MG/100 ML RTUPB IV SCH (09:38)
[2018-07-16] MEDS: FAMOTIDINE 20 MG TABLET PO SCH ×2 (09:38→21:42)
[2018-07-16] MEDS: GUAIFENESIN 600 MG TABLET.SA PO SCH ×2 (09:38→21:42)
[2018-07-16] MEDS: DOCUSATE SODIUM 100 MG CAPSULE PO SCH ×2 (09:39→17:14)
[2018-07-16] MEDS: DABIGATRAN ETEXILATE 150 MG CAPSULE PO SCH ×2 (09:39→17:14)
--- NOTE | 2018-07-16 14:32 | PDOC PROGRESS REPORT ---
Subjective Progress Note for:: 07/16/18 Subjective:: No acute events overnight. Patient has been using BiPAP overnight stating that she had a good night sleep. Shortness of breath have improved since yesterday. Has not had any recurrence of bloody sputum. Denies any fever, chills, nausea, vomiting, diarrhea, constipation or any urinary symptoms. Reason For Visit: ATRIAL FIBRILLATION WITH RVR,COPD Physical Exam Vital Signs: Temp Pulse Resp BP Pulse Ox 97.5 F 91 22 H 103/53 L 96 07/16/18 08:27 07/16/18 14:00 07/16/18 08:27 07/16/18 11:00 07/16/18 08:27 Intake & Output 07/15/18 07/16/18 07/17/18 06:59 06:59 06:59 Intake Total 1759 1425 100 Output Total 1500 2650 Balance 259 -1225 100 Weight 84.1 kg 80.6 kg General appearance: PRESENT: morbidly obese Head exam: PRESENT: atraumatic, normocephalic Respiratory exam: PRESENT: clear to auscultation rylee. ABSENT: rales, rhonchi, wheezes Cardiovascular exam: PRESENT: irregular rhythm GI/Abdominal exam: PRESENT: normal bowel sounds, soft. ABSENT: distended, guarding, mass, organolmegaly, rebound, tenderness Extremities exam: PRESENT: full ROM. ABSENT: calf tenderness, clubbing, pedal edema Neurological exam: PRESENT: alert, awake, oriented to person, oriented to place, oriented to time, oriented to situation, CN II-XII grossly intact. ABSENT: motor sensory deficit Results Laboratory Results: 07/16/18 05:45 07/16/18 05:45 07/15/18 07/16/18 07/16/18 14:15 05:45 05:45 WBC 12.9 H RBC 4.33 Hgb 13.2 Hct 38.7 MCV 89 MCH 30.5 MCHC 34.1 RDW 15.0 H Plt Count 163 Seg Neutrophils % 89.4 H Lymphocytes % 5.8 L Monocytes % 4.8 Eosinophils % 0.0 Basophils % 0.0 Absolute Neutrophils 11.5 H Absolute Lymphocytes 0.8 Absolute Monocytes 0.6 Absolute Eosinophils 0.0 Absolute Basophils 0.0 Carbonic Acid 1.79 H HCO3/H2CO3 Ratio 15:1 ABG pH 7.30 L ABG pCO2 59.5 H ABG pO2 59.5 L ABG HCO3 28.6 H ABG O2 Saturation 87.6 L ABG Base Excess 0.6 FiO2 5L Sodium 136.3 L Potassium 4.6 Chloride 92 L Carbon Dioxide 34 H Anion Gap 10 BUN 29 H Creatinine 0.54 Est GFR ( Amer) > 60 Est GFR (Non-Af Amer) > 60 Glucose 201 H Calcium 9.0 Magnesium 1.9 Total Bilirubin 0.7 AST 35 ALT 40 Alkaline Phosphatase 64 Total Protein 6.2 L Albumin 4.0 07/16/18 06:25 WBC RBC Hgb Hct MCV MCH MCHC RDW Plt Count Seg Neutrophils % Lymphocytes % Monocytes % Eosinophils % Basophils % Absolute Neutrophils Absolute Lymphocytes Absolute Monocytes Absolute Eosinophils Absolute Basophils Carbonic Acid 1.39 H HCO3/H2CO3 Ratio 23:1 ABG pH 7.47 H ABG pCO2 46.3 H ABG pO2 56.5 L ABG HCO3 33.1 H ABG O2 Saturation 90.9 L ABG Base Excess 8.2 FiO2 40% Sodium Potassium Chloride Carbon Dioxide Anion Gap BUN Creatinine Est GFR ( Amer) Est GFR (Non-Af Amer) Glucose Calcium Magnesium Total Bilirubin AST ALT Alkaline Phosphatase Total Protein Albumin 07/12/18 07/15/18 12:07 09:43 Troponin I < 0.012 < 0.012 Impressions: Chest X-Ray 07/15/18 00:00 IMPRESSION: Interval development of a thin walled cavity in the right mid lung, either in the superior segment right lower lobe or inferior aspect right upper lobe. Stable bandlike scarring in the left mid lung and right lung base. Marked cardiomegaly with prominent central pulmonary arteries Assessment & Plan - Diagnosis (1) Acute respiratory failure with hypoxia and hypercarbia Is this a current diagnosis for this admission?: Yes Plan: Likely due to acute pulmonary edema caused by worsening A. fib/COPD exacerbation. 07/16/2018 ABG: PH 7.47, PCO2 46.3, PO2 56.5, O2 saturation 90.9% on FiO2 of 40%. 07/15/2018 ABG: PH 7.30, PCO2 59.5, PO2 59.5, O2 sat 87.6, FiO2 5 L. Continue BiPAP, Cardizem drip, IV Lasix, nebs, IV steroids, IV antibiotics. ABG in the morning. Follow-up CTA. Monitor volume status. (2) Atrial fibrillation with RVR Is this a current diagnosis for this admission?: Yes Plan: Rate controlled. Continue Cardizem drip. Will switch back to p.o. Cardizem once stable. No repeat bloody sputum. Continue dabigatran. Monitor for bleeding. (3) Acute exacerbation of chronic obstructive pulmonary disease (COPD) Is this a current diagnosis for this admission?: Yes Plan: As per problem #1. (4) Diabetes mellitus type 2 in nonobese Is this a current diagnosis for this admission?: Yes Plan: 12/15/2016 A1c 6.6%. Patient is not being treated for diabetes however she is having high blood glucose level likely due to steroids given for her COPD exacerbation. Continue Accu-Check sliding scale. Outpatient PCP follow-up. (5) Diastolic CHF Is this a current diagnosis for this admission?: Yes Plan: Monitor volume status. Restart home meds. Pending 2D echo. Continue IV Lasix guided by vitals.
[2018-07-16] MEDS: FUROSEMIDE INJ/PF 20 MG/2 ML SDV IV SCH ×2 (15:40→21:42)
[2018-07-16] MEDS: ONDANSETRON 4 MG TAB.RAPDIS PO PRN (17:14)
[2018-07-17] MEDS: OXYCODONE-ACETAMINOPHEN 5-325 MG TABLET PO PRN (01:27)
[2018-07-17] MEDS: ACETAMINOPHEN 325 MG TABLET PO PRN ×2 (01:31→08:26)
[2018-07-17] MEDS: IPRATROPIUM/ALBUTEROL 0.5-2.5 MG/3 ML AMPUL NEB SCH ×5 (05:41→20:45)
[2018-07-17 06:32] LABS: ABSOLUTE LYMPHOCYTES (AUTO) 1.1 10^3/uL (0.5-4.7); ABSOLUTE MONOCYTES (AUTO) 0.6 10^3/uL (0.1-1.4); ABSOLUTE NEUT (AUTO) 11.4 10^3/uL (1.7-8.2); BASOPHILS % (AUTO) 0.2 % (0-2); HEMATOCRIT 41.1 % (36.0-47.0); HEMOGLOBIN 13.8 g/dL (12.0-15.5); LYMPHOCYTES % (AUTO) 8.3 % (13-45); MEAN CORPUSCULAR HEMOGLOBIN 30.1 pg (27.0-33.4); MEAN CORPUSCULAR HGB CONC 33.5 g/dL (32.0-36.0); MEAN CORPUSCULAR VOLUME 90 fl (80-97); MONOCYTES % (AUTO) 4.2 % (3-13); PLATELET COUNT 171 10^3/uL (150-450); RED BLOOD COUNT 4.58 10^6/uL (3.72-5.28); RED CELL DISTRIBUTION WIDTH 14.8 % (11.5-14.0); SEGMENTED NEUTROPHILS % (AUTO) 87.3 % (42-78); TOTAL CELLS COUNTED % (AUTO) 100 %
[2018-07-17 07:06] LABS: ALANINE AMINOTRANSFERASE 37 U/L (9-52); ALKALINE PHOSPHATASE 66 U/L (38-126); ANION GAP 13 (5-19); ASPARTATE AMINO TRANSFERASE 24 U/L (14-36); BILIRUBIN,DIRECT 0.3 mg/dL (0.0-0.4); BILIRUBIN,TOTAL 0.6 mg/dL (0.2-1.3); BLOOD UREA NITROGEN 31 mg/dL (7-20); CALCIUM 9.1 mg/dL (8.4-10.2); CARBON DIOXIDE 33 mmol/L (22-30); CHLORIDE 89 mmol/L (98-107); GLUCOSE 193 mg/dL (75-110); SODIUM 135.1 mmol/L (137-145); TOTAL PROTEIN 6.2 g/dL (6.3-8.2)
[2018-07-17] MEDS: DILTIAZEM HCL/D5W 125 MG/125 ML RTUINJ IV PRN (07:28)
[2018-07-17] MEDS: BUDESONIDE NEB 0.5 MG/2 ML AMPUL NEB SCH ×2 (08:41→20:45)
[2018-07-17] MEDS: INSULIN LISPRO 100 UNIT/ML 3 ML VIAL SUBCUT PRN ×4 (09:15→22:13)
[2018-07-17] MEDS: METHYLPREDNISOLONE INJ 125 MG/2 ML SDV IV SCH ×2 (10:35→21:39)
[2018-07-17] MEDS: FUROSEMIDE INJ/PF 20 MG/2 ML SDV IV SCH ×2 (10:36→21:40)
[2018-07-17] MEDS: FAMOTIDINE 20 MG TABLET PO SCH ×2 (10:39→21:39)
[2018-07-17] MEDS: DIGOXIN 0.125 MG TABLET PO SCH (10:39)
[2018-07-17] MEDS: DOCUSATE SODIUM 100 MG CAPSULE PO SCH ×2 (10:40→17:59)
[2018-07-17] MEDS: GUAIFENESIN 600 MG TABLET.SA PO SCH ×2 (10:40→21:39)
[2018-07-17] MEDS: LEVOFLOXACIN 500 MG/D5W RTU 500 MG/100 ML RTUPB IV SCH (10:40)
[2018-07-17] MEDS: DABIGATRAN ETEXILATE 150 MG CAPSULE PO SCH ×2 (10:52→17:59)
--- NOTE | 2018-07-17 13:20 | RADIOLOGY REPORT (SQ) ---
EXAM DESCRIPTION: CTA CHEST COMPLETED DATE/TIME: 07/17/2018 12:44 pm REASON FOR STUDY: SHORTNESS OF BREATH COMPARISON: Chest x-ray 07/15/2018, CT chest 03/22/2016. TECHNIQUE: CT scan of the chest performed using helical scanning technique with dynamic intravenous contrast injection. Images reviewed with lung, soft tissue and bone windows. Reconstructed coronal and sagittal MPR images reviewed. Additional 3 dimensional post-processing performed to develop Maximal Intensity Projection images (NM P). All images stored on PACS. All CT scanners at this facility use dose modulation, iterative reconstruction, and/or weight based d osing when appropriate to reduce radiation dose to as low as reasonably achievable (ALARA). [facility]: Dose Right [facility]: CareDose [facility]: Dose Right [facility]: Teradose 4D [facility]: [place] CONTRAST TYPE AND DOSE: contrast/concentration: Isovue 350.00 mg/ml; Total Contrast Delivered: 77.0 ml; Total Saline Delivered: 80.0 ml Contrast bolus optimized for the pulmonary arteries. Not diagnostic for the aorta. RENAL FUNCTION: Creatinine 0.49 RADIATION DOSE: CT Rad equipment meets quality standard of care and radiation dose reduction techniq ues were employed. CTDIvol: 15.1 - 34.7 mGy. DLP: 627 mGy-cm. . LIMITATIONS: None. FINDINGS: LUNGS AND PLEURA: There are bilateral airspace opacities, more confluent at the right lowe r lobe. There is a 1.4 cm cavitary lesion at the right lower lobe. No pleural effusion or pneumotho rax. AORTA AND GREAT VESSELS: No thoracic aortic aneurysm. Contrast bolus not optimized for the aorta. T he main pulmonary artery is dilated. HEART: No pericardial effusion. The heart is enlarged. Scattered coronary artery calcifications. R edemonstration of atrial septal closure device. PULMONARY ARTERIES: No emboli visualized in the main pulmonary arteries or the segmental branches. HILAR AND MEDIASTINAL STRUCTURES: There is mild mediastinal adenopathy measuring up to 13 mm in short axis. No pathologically enlarged lymph nodes are seen at the hilar or axillary regions. HARDWARE: None in the chest. UPPER ABDOMEN: There is a small hiatal hernia. THYROID AND OTHER SOFT TISSUES: No masses. No adenopathy. BONES: No acute or significant finding. 3D MIPS: Confirm above findings. OTHER: No other significant finding. IMPRESSION: 1. No pulmonary emboli. 2. Bilateral airspace opacities, more confluent at the right lower lobe, may be secondary to acute in fection/inflammation such as multifocal pneumonia. 1.4 cm cavitary lesion at the right lower lobe, m ay represent a lung abscess or septic embolus. Followup CT after treatment recommended to ensure com plete resolution and exclude underlying neoplasm. 3. Mild mediastinal adenopathy. 4. Cardiomegaly. Dilated main pulmonary artery, may be seen with pulmonary arterial hypertension. 5. Small hiatal hernia. COMMENT: Quality ID # [id number]: Final reports with documentation of one or more dose reduction techniques (e.g., Automated exposure control, adjustment of the mA and/or kV according to patient size, use of iterative reconstruction technique) TECHNICAL DOCUMENTATION: JOB ID: [id number] [employer]- All Rights Reserved Reading location - IP/workstation name: [email or web address]
[2018-07-17] MEDS ORDERED: VANCOMYCIN HCL 0 MG in DEXTROSE 5%-WATER 250 ML IV NR (13:45)
--- NOTE | 2018-07-17 13:48 | PDOC PROGRESS REPORT ---
Subjective Progress Note for:: 07/17/18 Subjective:: No acute events overnight. Patient has been using BiPAP overnight stating that she had a good night sleep. Shortness of breath have improved since yesterday. Has not had any recurrence of bloody sputum. Denies any fever, chills, nausea, vomiting, diarrhea, constipation or any urinary symptoms. Reason For Visit: ATRIAL FIBRILLATION WITH RVR,COPD Physical Exam Vital Signs: Temp Pulse Resp BP Pulse Ox 97.5 F 81 17 124/71 93 07/17/18 08:38 07/17/18 13:05 07/17/18 13:05 07/17/18 11:00 07/17/18 13:05 Intake & Output 07/16/18 07/17/18 07/18/18 06:59 06:59 06:59 Intake Total 1425 2164 129 Output Total 2650 2550 Balance -1225 -386 129 Weight 80.6 kg 79.3 kg General appearance: PRESENT: no acute distress, well-developed, well-nourished Head exam: PRESENT: atraumatic, normocephalic Neck exam: ABSENT: carotid bruit, JVD, lymphadenopathy, thyromegaly Respiratory exam: PRESENT: decreased breath sounds, prolonged expiratory phas, wheezes. ABSENT: rales, rhonchi Cardiovascular exam: PRESENT: irregular rhythm. ABSENT: diastolic murmur, rubs, systolic murmur GI/Abdominal exam: PRESENT: normal bowel sounds, soft. ABSENT: distended, guarding, mass, organolmegaly, rebound, tenderness Neurological exam: PRESENT: alert, awake, oriented to person, oriented to place, oriented to time, oriented to situation, CN II-XII grossly intact. ABSENT: motor sensory deficit Results Laboratory Results: 07/17/18 06:03 07/17/18 06:03 07/17/18 07/17/18 06:03 06:03 WBC 13.0 H RBC 4.58 Hgb 13.8 Hct 41.1 MCV 90 MCH 30.1 MCHC 33.5 RDW 14.8 H Plt Count 171 Seg Neutrophils % 87.3 H Lymphocytes % 8.3 L Monocytes % 4.2 Eosinophils % 0.0 Basophils % 0.2 Absolute Neutrophils 11.4 H Absolute Lymphocytes 1.1 Absolute Monocytes 0.6 Absolute Eosinophils 0.0 Absolute Basophils 0.0 Sodium 135.1 L Potassium 4.0 Chloride 89 L Carbon Dioxide 33 H Anion Gap 13 BUN 31 H Creatinine 0.56 Est GFR ( Amer) > 60 Est GFR (Non-Af Amer) > 60 Glucose 193 H Calcium 9.1 Magnesium 2.2 Total Bilirubin 0.6 AST 24 ALT 37 Alkaline Phosphatase 66 Total Protein 6.2 L Albumin 4.0 07/12/18 07/15/18 12:07 09:43 Troponin I < 0.012 < 0.012 Impressions: Chest X-Ray 07/15/18 00:00 IMPRESSION: Interval development of a thin walled cavity in the right mid lung, either in the superior segment right lower lobe or inferior aspect right upper lobe. Stable bandlike scarring in the left mid lung and right lung base. Marked cardiomegaly with prominent central pulmonary arteries Chest/Abdomen CTA 07/17/18 08:00 IMPRESSION: 1. No pulmonary emboli. 2. Bilateral airspace opacities, more confluent at the right lower lobe, may be secondary to acute infection/inflammation such as multifocal pneumonia. 1.4 cm cavitary lesion at the right lower lobe, may represent a lung abscess or septic embolus. Followup CT after treatment recommended to ensure complete resolution and exclude underlying neoplasm. 3. Mild mediastinal adenopathy. 4. Cardiomegaly. Dilated main pulmonary artery, may be seen with pulmonary arterial hypertension. 5. Small hiatal hernia. Assessment & Plan - Diagnosis (1) Acute respiratory failure with hypoxia and hypercarbia Is this a current diagnosis for this admission?: Yes Plan: Likely due to acute pulmonary edema caused by worsening A. fib/COPD exacerbation or pneumonia. 07/16/2018 ABG: PH 7.47, PCO2 46.3, PO2 56.5, O2 saturation 90.9% on FiO2 of 40%. 07/15/2018 ABG: PH 7.30, PCO2 59.5, PO2 59.5, O2 sat 87.6, FiO2 5 L. Continue BiPAP, Cardizem drip, IV Lasix, nebs, IV steroids, IV antibiotics. ABG in the morning. CTA negative for PE but positive for bilateral airspace opacities secondary to acute infection/inflammation such as multifocal pneumonia. Monitor volume status. Pulmonary consulted (2) Pneumonia Qualifiers: Lung location: unspecified part of lung Is this a current diagnosis for this admission?: Yes Plan: Likely hospital-acquired. Improving. CTA negative for PE but positive for bilateral airspace opacities secondary to acute infection/inflammation such as multifocal pneumonia. Continue levofloxacin. Will add vancomycin. Patient is allergic to penicillins. Adjust meds as needed. (3) Atrial fibrillation with RVR Is this a current diagnosis for this admission?: Yes Plan: Rate controlled. Continue Cardizem drip. Will switch back to p.o. Cardizem once stable. No repeat bloody sputum. Continue dabigatran. Monitor for bleeding. (4) Acute exacerbation of chronic obstructive pulmonary disease (COPD) Is this a current diagnosis for this admission?: Yes Plan: As per problem #1. (5) Diabetes mellitus type 2 in nonobese Is this a current diagnosis for this admission?: Yes Plan: 12/15/2016 A1c 6.6%. Patient is not being treated for diabetes however she is having high blood glucose level likely due to steroids given for her COPD exacerbation. Continue Accu-Check sliding scale. Outpatient PCP follow-up. (6) Diastolic CHF Is this a current diagnosis for this admission?: Yes Plan: Monitor volume status. Restart home meds. Pending 2D echo. Continue IV Lasix guided by vitals. (7) Pulmonary cavitary lesion Is this a current diagnosis for this admission?: Yes Plan: 07/17/2018. CTA positive for 1.4 cm cavitary lesion at the right lower lobe. Pulmonary consulted for further recommendation.
--- NOTE | 2018-07-17 16:25 | XCELERA REPORT ---
[address] [address] Transthoracic Echocardiogram Report Name: LEXX KIMBALL Age: 62 yrs Gender: Female : 1955 Patient Status: Inpatient Patient Location: [facility]^A Study Date: 07/17/2018 04:22 PM Height: 65 in Weight: 177 lb BSA: 1.9 m2 Reason For Study: CHF Exacerbation Ordering Physician: JOSE DE JESUS FLYNN Performed By: Perico Antonio Interpretation Summary Technologist Comment: Patient extremely difficult to echo, body habitus would not allow apicals to be imaged adequately, subcostals have bowel gas artifact, lung artifact throughout entire echo. Patient states she has had heart surgery and implanted device within atria, procedure done at [facility]. Poor quality study with many poor images and suboptimal doppler data that limits evaluation of cardiac structures. Lack of contrast opacification limits evaluation for cardiac mass/ thrombus and appreciate wall motion abnormalities. LVEF visually estimated normal at 55-60%. RV systolic function appears normal. There is a mild amount of mitral regurgitation AV leaflets not well visualized but appear thickened/ calcified. There is a mild amount of tricuspid regurgitation Right ventricular systolic pressure is estimated to be elevated at 35-40 mmHg. IVC upper limit normal size. The aortic root is normal size. IA septum appears thickened- pt s/p cardiac procedure- unclear details- Did pt have PFO closure? MMode/2D Measurements & Calculations RVDd: 2.7 cm LVIDd: 5.1 cm FS: 29.5 % Ao root diam: 2.6 cm IVSd: 0.89 cm LVIDs: 3.6 cm EDV(Teich): 125.0 ml LVPWd: 1.1 cm ESV(Teich): 54.8 ml Ao root area: 5.3 cm2 EF(Teich): 56.2 % LVOT diam: 1.7 cm LVOT area: 2.2 cm2 Doppler Measurements & Calculations MV E max ayala: MV dec slope: Ao V2 max: LV V1 max P.1 cm/sec 582.4 cm/sec2 74.6 cm/sec 2.0 mmHg MV A max ayala: MV dec time: 0.20 sec Ao max P.2 mmHgLV V1 max: 54.7 cm/sec MANE(V,D): 2.1 cm2 71.1 cm/sec MV E/A: 2.1 MR max ayala: PA V2 max: TR max ayala: 153.6 cm/sec 66.3 cm/sec 295.1 cm/sec MR max P.4 mmHg PA max P.8 mmHg TR max P.7 mmHg Left Ventricle The left ventricular ejection fraction is normal. LV EF is 55-60%. Right Ventricle The right ventricular systolic function is normal. Atria Right atrium not well visualized secondary to technical limitations. The left atrium is not well visualized secondary to technical limitations. IA septum appears thickened- pt s/p cardiac procedure- unclear details- Did pt have PFO closure?. Mitral Valve MV leaflets not well visualized but appear focally thickened. There is a mild amount of mitral regurgitation. Aortic Valve AV leaflets not well visualized but appear thickened/ calcified. Suboptimal doppler data provided across AV. Tricuspid Valve The tricuspid valve is not well visualized secondary to technical limitations. There is a mild amount of tricuspid regurgitation. RVSP estimated at 35-40 mm Hg. Pulmonic Valve The pulmonic valve is not well visualized. Great Vessels The aortic root is not well visualized. The aortic root is normal size. IVC upper limit normal size. Effusions Pericardium not well visualized but no obvious effusion noted, although pericardial pad of fat noted. : JOSE DE JESUS FLYNN > Claudio Ivey
[2018-07-17] MEDS ORDERED: VANCOMYCIN HCL 750 MG in DEXTROSE 5%-WATER 250 ML IV SCH (18:00)
[2018-07-18] MEDS: IPRATROPIUM/ALBUTEROL 0.5-2.5 MG/3 ML AMPUL NEB SCH ×6 (00:42→21:05)
[2018-07-18 06:13] LABS: ALANINE AMINOTRANSFERASE 32 U/L (9-52); ALBUMIN 3.6 g/dL (3.5-5.0); ALKALINE PHOSPHATASE 60 U/L (38-126); ANION GAP 9 (5-19); ASPARTATE AMINO TRANSFERASE 21 U/L (14-36); BILIRUBIN,DIRECT 0.3 mg/dL (0.0-0.4); BILIRUBIN,TOTAL 0.6 mg/dL (0.2-1.3); BLOOD UREA NITROGEN 34 mg/dL (7-20); CALCIUM 8.8 mg/dL (8.4-10.2); CARBON DIOXIDE 35 mmol/L (22-30); CHLORIDE 93 mmol/L (98-107); GLUCOSE 167 mg/dL (75-110); POTASSIUM 3.7 mmol/L (3.6-5.0); SODIUM 136.7 mmol/L (137-145)
[2018-07-18 06:40] LABS: ARTERIAL BLOOD BASE EXCESS 10.7 mmol/L; ARTERIAL BLOOD FIO2 4L; ARTERIAL BLOOD H2CO3 1.36 mmol/L (1.05-1.35); ARTERIAL BLOOD HCO3 35.1 mmol/L (20-24); ARTERIAL BLOOD O2 SATURATION 93.6 % (94-98); ARTERIAL BLOOD PCO2 45.1 mmHg (35-45); ARTERIAL BLOOD PH 7.51 (7.35-7.45); ARTERIAL BLOOD PO2 62.2 mmHg (80-100); ARTERIAL BLOOD TOTAL CO2 36.5 mmol/L (21-25)
[2018-07-18] MEDS: INSULIN LISPRO 100 UNIT/ML 3 ML VIAL SUBCUT PRN ×4 (07:52→21:11)
[2018-07-18] MEDS: ACETAMINOPHEN 325 MG TABLET PO PRN (07:58)
[2018-07-18] MEDS: DILTIAZEM HCL/D5W 125 MG/125 ML RTUINJ IV PRN (08:08)
[2018-07-18] MEDS: BUDESONIDE NEB 0.5 MG/2 ML AMPUL NEB SCH ×2 (08:21→21:05)
[2018-07-18] MEDS: GUAIFENESIN 600 MG TABLET.SA PO SCH ×2 (09:11→21:12)
[2018-07-18] MEDS: METHYLPREDNISOLONE INJ 125 MG/2 ML SDV IV SCH ×2 (09:11→21:11)
[2018-07-18] MEDS: DOCUSATE SODIUM 100 MG CAPSULE PO SCH ×2 (09:11→17:54)
[2018-07-18] MEDS: FUROSEMIDE INJ/PF 20 MG/2 ML SDV IV SCH ×2 (09:11→21:11)
[2018-07-18] MEDS: LEVOFLOXACIN 500 MG/D5W RTU 500 MG/100 ML RTUPB IV SCH (09:12)
[2018-07-18] MEDS: DABIGATRAN ETEXILATE 150 MG CAPSULE PO SCH ×2 (09:12→17:53)
[2018-07-18] MEDS: DIGOXIN 0.125 MG TABLET PO SCH (09:12)
[2018-07-18] MEDS: FAMOTIDINE 20 MG TABLET PO SCH ×2 (09:12→21:12)
[2018-07-18] MEDS: DILTIAZEM HCL 120 MG CAP.SR.24H PO SCH ×2 (11:06→21:12)
--- NOTE | 2018-07-18 11:26 | PDOC PROGRESS REPORT ---
Subjective Progress Note for:: 07/18/18 Subjective:: was able to use BiPAP overnight. P.o. tolerant and able to finish 100% of her meal. Been normotensive heart rate of 80-98, saturating in the low 90s on 5 L. Fluid balance -541. Repeat ABG this morning shows a pH of 7.51, PO2 of 62.2 from 56.5. CBC positive for mild leukocytosis, no bandemia, CMP within normal limits except for fasting blood glucose of 167 which could be due to steroids receiving for COPD exacerbation. Blood culture has been negative. She denies any fever, chills, chest pain, nausea, vomiting, diarrhea, constipation or any urinary symptoms. Reason For Visit: ATRIAL FIBRILLATION WITH RVR,COPD Physical Exam Vital Signs: Temp Pulse Resp BP Pulse Ox 97.6 F 98 18 119/81 91 L 07/18/18 07:52 07/18/18 10:00 07/18/18 08:21 07/18/18 10:00 07/18/18 08:21 Intake & Output 07/17/18 07/18/18 07/19/18 06:59 06:59 06:59 Intake Total 2164 1484 135 Output Total 2550 5 Balance -386 -541 135 Weight 79.3 kg 79.3 kg General appearance: PRESENT: no acute distress Head exam: PRESENT: atraumatic, normocephalic Respiratory exam: PRESENT: clear to auscultation rylee, prolonged expiratory phas, wheezes. ABSENT: rales, rhonchi Cardiovascular exam: PRESENT: RRR. ABSENT: diastolic murmur, rubs, systolic murmur GI/Abdominal exam: PRESENT: normal bowel sounds, soft. ABSENT: distended, guar ding, mass, organolmegaly, rebound, tenderness Extremities exam: PRESENT: full ROM. ABSENT: calf tenderness, clubbing, pedal edema Neurological exam: PRESENT: alert, awake, oriented to person, oriented to place, oriented to time, oriented to situation, CN II-XII grossly intact. ABSENT: motor sensory deficit Results Laboratory Results: 07/17/18 06:03 07/18/18 05:37 07/18/18 07/18/18 01:28 05:37 Carbonic Acid 1.36 H HCO3/H2CO3 Ratio 25:1 ABG pH 7.51 H ABG pCO2 45.1 H ABG pO2 62.2 L ABG HCO3 35.1 H ABG O2 Saturation 93.6 L ABG Base Excess 10.7 FiO2 4L Sodium 136.7 L Potassium 3.7 Chloride 93 L Carbon Dioxide 35 H Anion Gap 9 BUN 34 H Creatinine 0.46 L Est GFR ( Amer) > 60 Est GFR (Non-Af Amer) > 60 Glucose 167 H Calcium 8.8 Magnesium 2.2 Total Bilirubin 0.6 AST 21 ALT 32 Alkaline Phosphatase 60 Total Protein 6.0 L Albumin 3.6 07/12/18 07/15/18 12:07 09:43 Troponin I < 0.012 < 0.012 Impressions: Chest X-Ray 07/15/18 00:00 IMPRESSION: Interval development of a thin walled cavity in the right mid lung, either in the superior segment right lower lobe or inferior aspect right upper lobe. Stable bandlike scarring in the left mid lung and right lung base. Marked cardiomegaly with prominent central pulmonary arteries Chest/Abdomen CTA 07/17/18 08:00 IMPRESSION: 1. No pulmonary emboli. 2. Bilateral airspace opacities, more confluent at the right lower lobe, may be secondary to acute infection/inflammation such as multifocal pneumonia. 1.4 cm cavitary lesion at the right lower lobe, may represent a lung abscess or septic embolus. Followup CT after treatment recommended to ensure complete resolution and exclude underlying neoplasm. 3. Mild mediastinal adenopathy. 4. Cardiomegaly. Dilated main pulmonary artery, may be seen with pulmonary arterial hypertension. 5. Small hiatal hernia. Assessment & Plan - Diagnosis (1) Acute respiratory failure with hypoxia and hypercarbia Is this a current diagnosis for this admission?: Yes Plan: Improving. Likely due to acute pulmonary edema caused by worsening A. fib/COPD exacerbation or pneumonia. 07/18/2018 ABG: PH 7.51, PCO2 45.1, PO2 62.2, O2 sat 93.6, on 4 L. 07/16/2018 ABG: PH 7.47, PCO2 46.3, PO2 56.5, O2 saturation 90.9% on FiO2 of 40%. 07/15/2018 ABG: PH 7.30, PCO2 59.5, PO2 59.5, O2 sat 87.6, FiO2 5 L. Continue BiPAP, Cardizem drip, IV Lasix, nebs, IV steroids, IV antibiotics. ABG in the morning. CTA negative for PE but positive for bilateral airspace opacities secondary to acute infection/inflammation such as multifocal pneumonia. Monitor volume status. Pulmonary consulted (2) Pneumonia Qualifiers: Lung location: unspecified part of lung Is this a current diagnosis for this admission?: Yes Plan: Likely hospital-acquired. Improving. CTA negative for PE but positive for bilateral airspace opacities secondary to acute infection/inflammation such as multifocal pneumonia. Continue empiric antibiotics. Cultures negative. Patient is allergic to penicillins. Adjust meds as needed. (3) Atrial fibrillation with RVR Is this a current diagnosis for this admission?: Yes Plan: Rate controlled. Continue Cardizem drip. Will switch back to p.o. Cardizem once stable. No repeat bloody sputum. Continue dabigatran. Monitor for bleeding. (4) Acute exacerbation of chronic obstructive pulmonary disease (COPD) Is this a current diagnosis for this admission?: Yes Plan: As per problem #1. (5) Diabetes mellitus type 2 in nonobese Is this a current diagnosis for this admission?: Yes Plan: 12/15/2016 A1c 6.6%. Patient is not being treated for diabetes however she is having high blood glucose level likely due to steroids given for her COPD exacerbation. Continue Accu-Check sliding scale. Outpatient PCP follow-up. (6) Diastolic CHF Is this a current diagnosis for this admission?: Yes Plan: Monitor volume status. Restart home meds. Continue IV Lasix guided by vitals. 07/17/2017: 2D echo poor quality. Left ventricular ejection fraction 55-6%. RVSP 35-40%. (7) Pulmonary cavitary lesion Is this a current diagnosis for this admission?: Yes Plan: 07/17/2018. CTA positive for 1.4 cm cavitary lesion at the right lower lobe. Pulmonary consulted for further recommendation.
[2018-07-18] MEDS ORDERED: ONDANSETRON 4 MG TAB.RAPDIS PO PRN (11:30)
[2018-07-18] MEDS: VANCOMYCIN HCL 750 MG in NORMAL SALINE 250 ML IV SCH (17:53)
[2018-07-18] MEDS: PROMETHAZINE HCL INJ 25 MG/1 ML VIAL IV PRN (21:10)
[2018-07-18] MEDS: OXYCODONE-ACETAMINOPHEN 5-325 MG TABLET PO PRN (21:12)
--- NOTE | 2018-07-18 22:38 | Progress Note ---
Provider Note Provider Note: CARDIOLOGY PROGRESS NOTE by Dr. Nisreen Aviles on 07/18/2018. SUBJECTIVE: The patient is feeling much better. She is now in atrial fibrillation with controlled ventricular response, and her heart rate is in the 80s. She denies any chest pain or discomfort. She has chronic orthopnea. There is no PND. There is no ventricular arrhythmia seen on the monitor. There is still some shortness of breath. There is no leg edema. There is no TIA CVA symptoms. There is no bleeding on anticoagulation. SUBJECTIVE: The patient is mildly overweight. At present on nasal cannula, and is in no acute distress. Selected Entries 07/18/18 07:52 Temperature 97.6 F Pulse Rate 80 Respiratory 17 Rate Blood Pressure 112/66 Blood Pressure 81 Mean BP Location Right Arm BP Position Supine O2 Sat by Pulse 94 Oximetry Oxygen Flow 4.00 Rate Oxygen Delivery Nasal Cannula Method HEAD: Is atraumatic normocephalic. EYES: Pupils equal round regular react to light accommodation. Extraocular movements are normal. There is no conjunctival pallor. There is no scleral icterus. ENT: Is negative. NECK: Is supple. There is no JVD carotids are equal there is no bruit. There is no lymphadenopathy. There is no goiter. There is no accessory muscles of respiration use. Trachea central. LUNGS: There is diminished air entry prolonged expiration. There is scattered rhonchi, but no wheezing there is dry crackles in the right upper lobe and in the right lower lobe. There is no rales of CHF. HEART: S1-S2 is heard there is no S3 gallop there is no S4 gallop. S1 is of variable intensity. There is systolic murmur left sternal border and the apex there is no rub. Abdomen: Soft. Nontender. There is no hepatosplenomegaly bowel sounds are well heard EXTREMITIES: Femorals are diminished. There is no femoral bruits. There is no cyanosis or clubbing. Leg pulses are diminished. There is no pedal edema. There is no DVT or cellulitis. PSYCHIATRIC: The patient judgment insight are intact her affect is normal. 07/18/18 05:37 Sodium 136.7 L Potassium 3.7 Chloride 93 L Carbon Dioxide 35 H Anion Gap 9 BUN 34 H Creatinine 0.46 L Est GFR (Non-Af Amer) > 60 Glucose 167 H Calcium 8.8 Magnesium 2.2 Total Bilirubin 0.6 Direct Bilirubin 0.3 Neonat Total Bilirubin Not Reportable Neonat Direct Bilirubin Not Reportable Neonat Indirect Bili Not Reportable AST 21 ALT 32 Alkaline Phosphatase 60 Total Protein 6.0 L Albumin 3.6 IMPRESSION/RECOMMENDATION: 1. Chronic atrial fibrillation: We will decrease the patient's Cardizem drip to 2.5 mg/h, will restart the patient on Cardizem CD at 120 mg p.o. twice daily, and continue the patient's Pradaxa. 2. Acute exacerbation of COPD: Slightly improving continue steroids continue antibiotics and continue respiratory treatments. 3. Hypertension: Well controlled. Continue current medical regimen. 4. Diabetes mellitus: Continue her antidiabetic medications. 5. Pneumonia, and possible lung abscess: Continue antibiotics. 6. History of ASD with Amplatz device closure and [facility]: Discussed the need to take antibiotics for SBP of flexion prior to GI and dental procedures/surgeries with the patient. Medications reviewed. Management plan discussed with attending physician on the case. Medical decision making is of moderate complexity. 40 minutes spent on this patient more than 50% time spent in direct patient care. She is a full cod e. Her surrogate healthcare decision makers are Mr. Eric Goldstein, and Ms. Jenni Little. Will follow.
[2018-07-19] MEDS: IPRATROPIUM/ALBUTEROL 0.5-2.5 MG/3 ML AMPUL NEB SCH ×5 (00:57→20:18)
[2018-07-19 05:23] LABS: ABSOLUTE LYMPHOCYTES (AUTO) 0.7 10^3/uL (0.5-4.7); ABSOLUTE MONOCYTES (AUTO) 0.4 10^3/uL (0.1-1.4); ABSOLUTE NEUT (AUTO) 8.1 10^3/uL (1.7-8.2); BASOPHILS % (AUTO) 0.2 % (0-2); EOSINOPHILS % (AUTO) 0.1 % (0-6); HEMATOCRIT 40.8 % (36.0-47.0); HEMOGLOBIN 13.9 g/dL (12.0-15.5); LYMPHOCYTES % (AUTO) 7.8 % (13-45); MEAN CORPUSCULAR HEMOGLOBIN 30.2 pg (27.0-33.4); MEAN CORPUSCULAR VOLUME 89 fl (80-97); PLATELET COUNT 231 10^3/uL (150-450); RED BLOOD COUNT 4.59 10^6/uL (3.72-5.28); RED CELL DISTRIBUTION WIDTH 14.9 % (11.5-14.0); SEGMENTED NEUTROPHILS % (AUTO) 87.9 % (42-78); TOTAL CELLS COUNTED % (AUTO) 100 %; WHITE BLOOD COUNT 9.2 10^3/uL (4.0-10.5)
[2018-07-19 05:49] LABS: ALANINE AMINOTRANSFERASE 35 U/L (9-52); ALBUMIN 3.5 g/dL (3.5-5.0); ALKALINE PHOSPHATASE 59 U/L (38-126); ANION GAP 10 (5-19); ASPARTATE AMINO TRANSFERASE 27 U/L (14-36); BILIRUBIN,DIRECT 0.3 mg/dL (0.0-0.4); BILIRUBIN,TOTAL 0.6 mg/dL (0.2-1.3); BLOOD UREA NITROGEN 36 mg/dL (7-20); CALCIUM 8.5 mg/dL (8.4-10.2); CARBON DIOXIDE 34 mmol/L (22-30); CHLORIDE 94 mmol/L (98-107); GLUCOSE 244 mg/dL (75-110); POTASSIUM 3.4 mmol/L (3.6-5.0); TOTAL PROTEIN 5.8 g/dL (6.3-8.2)
[2018-07-19] MEDS: INSULIN LISPRO 100 UNIT/ML 3 ML VIAL SUBCUT PRN (07:39)
[2018-07-19] MEDS: DILTIAZEM HCL/D5W 125 MG/125 ML RTUINJ IV PRN (07:43)
[2018-07-19] MEDS ORDERED: POTASSIUM CHLORIDE 20 MEQ/15 ML UDCUP PO ONE (09:00)
[2018-07-19] MEDS: BUDESONIDE NEB 0.5 MG/2 ML AMPUL NEB SCH ×2 (09:14→20:19)
[2018-07-19] MEDS: DILTIAZEM HCL 120 MG CAP.SR.24H PO SCH ×2 (09:40→22:39)
[2018-07-19] MEDS: GUAIFENESIN 600 MG TABLET.SA PO SCH ×2 (09:40→22:39)
[2018-07-19] MEDS: FAMOTIDINE 20 MG TABLET PO SCH ×2 (09:40→22:39)
[2018-07-19] MEDS: DOCUSATE SODIUM 100 MG CAPSULE PO SCH ×2 (09:40→17:09)
[2018-07-19] MEDS: DABIGATRAN ETEXILATE 150 MG CAPSULE PO SCH ×2 (09:40→17:09)
[2018-07-19] MEDS: LEVOFLOXACIN 500 MG/D5W RTU 500 MG/100 ML RTUPB IV SCH (09:40)
[2018-07-19] MEDS: FUROSEMIDE INJ/PF 20 MG/2 ML SDV IV SCH ×2 (09:41→22:39)
[2018-07-19] MEDS: METHYLPREDNISOLONE INJ 125 MG/2 ML SDV IV SCH (09:41)
[2018-07-19] MEDS: DIGOXIN 0.125 MG TABLET PO SCH (09:41)
--- NOTE | 2018-07-19 11:05 | PDOC PROGRESS REPORT ---
Subjective Progress Note for:: 07/19/18 Subjective:: No acute events overnight. Patient was able to use her BiPAP overnight with no problems. She stating that she was able to sleep. Shortness of breath has much improved. On my encounter he does not seem to be on any acute distress comfortably sitting in her bed is on nasal cannula saturating 95% on 3.5 L. Heart rate has been running in 70s. Has been afebrile for the last 24 hours. CBC within normal limits, CMP positive for mild hypokalemia. Patient is a still on minimal target setter drip and plan is to transfer her to [facility]. Patient is still pending consult by bilingual teacher aide. She is denying any fever, cough, chills, chest pain, nausea, vomiting, diarrhea or constipation. Physical examination patient is still having diffuse expiratory wheezes which has improved since yesterday. Reason For Visit: ATRIAL FIBRILLATION WITH RVR,COPD Physical Exam Vital Signs: Temp Pulse Resp BP Pulse Ox 98.2 F 85 18 116/71 95 07/19/18 08:00 07/19/18 09:15 07/19/18 09:15 07/19/18 08:00 07/19/18 09:15 Intake & Output 07/18/18 07/19/18 07/20/18 06:59 06:59 06:59 Intake Total 1484 1476 153 Output Total 2024 2049 Balance -541 -574 153 Weight 79.3 kg 79.2 kg General appearance: PRESENT: no acute distress, well-developed, well-nourished Head exam: PRESENT: atraumatic, normocephalic Respiratory exam: PRESENT: prolonged expiratory phas, wheezes Cardiovascular exam: PRESENT: RRR. ABSENT: diastolic murmur, rubs, systolic m urmur GI/Abdominal exam: PRESENT: normal bowel sounds, soft. ABSENT: distended, guarding, mass, organolmegaly, rebound, tenderness Neurological exam: PRESENT: alert, awake, oriented to person, oriented to place, oriented to time, oriented to situation, CN II-XII grossly intact. ABSENT: motor sensory deficit Results Laboratory Results: 07/19/18 04:50 07/19/18 04:50 07/19/18 07/19/18 04:50 04:50 WBC 9.2 RBC 4.59 Hgb 13.9 Hct 40.8 MCV 89 MCH 30.2 MCHC 34.0 RDW 14.9 H Plt Count 231 Seg Neutrophils % 87.9 H Lymphocytes % 7.8 L Monocytes % 4.0 Eosinophils % 0.1 Basophils % 0.2 Absolute Neutrophils 8.1 Absolute Lymphocytes 0.7 Absolute Monocytes 0.4 Absolute Eosinophils 0.0 Absolute Basophils 0.0 Sodium 138.0 Potassium 3.4 L Chloride 94 L Carbon Dioxide 34 H Anion Gap 10 BUN 36 H Creatinine 0.44 L Est GFR ( Amer) > 60 Est GFR (Non-Af Amer) > 60 Glucose 244 H Calcium 8.5 Magnesium 2.2 Total Bilirubin 0.6 AST 27 ALT 35 Alkaline Phosphatase 59 Total Protein 5.8 L Albumin 3.5 07/12/18 07/15/18 12:07 09:43 Troponin I < 0.012 < 0.012 Impressions: Chest X-Ray 07/15/18 00:00 IMPRESSION: Interval development of a thin walled cavity in the right mid lung, either in the superior segment right lower lobe or inferior aspect right upper lobe. Stable bandlike scarring in the left mid lung and right lung base. Marked cardiomegaly with prominent central pulmonary arteries Chest/Abdomen CTA 07/17/18 08:00 IMPRESSION: 1. No pulmonary emboli. 2. Bilateral airspace opacities, more confluent at the right lower lobe, may be secondary to acute infection/inflammation such as multifocal pneumonia. 1.4 cm cavitary lesion at the right lower lobe, may represent a lung abscess or septic embolus. Followup CT after treatment recommended to ensure complete resolution and exclude underlying neoplasm. 3. Mild mediastinal adenopathy. 4. Cardiomegaly. Dilated main pulmonary artery, may be seen with pulmonary arterial hypertension. 5. Small hiatal hernia. Assessment & Plan - Diagnosis (1) Acute respiratory failure with hypoxia and hypercarbia Is this a current diagnosis for this admission?: Yes Plan: Improving. Likely caused by acute pulmonary edema secondary to worsening A. fib/COPD exacerbation or pneumonia. 07/16/2018 ABG: PH 7.47, PCO2 46.3, PO2 56.5, O2 saturation 90.9% on FiO2 of 40%. 07/15/2018 ABG: PH 7.30, PCO2 59.5, PO2 59.5, O2 sat 87.6, FiO2 5 L. Continue BiPAP, Cardizem drip, IV Lasix, nebs, IV steroids, IV antibiotics. CTA negative for PE but positive for bilateral airspace opacities secondary to acute infection/inflammation such as multifocal pneumonia. Monitor volume status. Pulmonary consulted (2) Pneumonia Qualifiers: Lung location: unspecified part of lung Is this a current diagnosis for this admission?: Yes Plan: Likely hospital-acquired. Improving. CTA negative for PE but positive for bilateral airspace opacities secondary to acute infection/inflammation such as multifocal pneumonia. Continue levo and vancomycin. Cultures negative. Patient is allergic to penicillins. Adjust meds as needed. (3) Atrial fibrillation with RVR Is this a current diagnosis for this admission?: Yes Plan: Rate controlled. Sinus rhythm. Continue Cardizem drip addition to p.o. as tolerated. No repeat bloody sputum. Continue dabigatran. Monitor for bleeding. (4) Acute exacerbation of chronic obstructive pulmonary disease (COPD) Is this a current diagnosis for this admission?: Yes Plan: As per problem #1. (5) Diabetes mellitus type 2 in nonobese Is this a current diagnosis for this admission?: Yes Plan: Patient is not being treated for diabetes however she is having worsening glucose level likely due to steroids given for her COPD exacerbation. 12/15/2016 A1c 6.6%. Continue Accu-Check sliding scale diabetic diet. Will discharge on metformin to follow-up with PCP. (6) Pulmonary cavitary lesion Is this a current diagnosis for this admission?: Yes Plan: 07/17/2018. CTA positive for 1.4 cm cavitary lesion at the right lower lobe. Pulmonary consulted for further recommendation.
[2018-07-19] MEDS: INSULIN LISPRO 100 UNIT/ML 3 ML VIAL SUBCUT SCH ×3 (12:30→22:39)
[2018-07-19] MEDS: POLYETHYLENE GLYCOL 3350 POWDER 17 GM/1 PACKET PO SCH (12:33)
[2018-07-19] MEDS: VANCOMYCIN HCL 750 MG in NORMAL SALINE 250 ML IV SCH (17:08)
[2018-07-19] MEDS ORDERED: NA PHOS,M-B/NA PHOS,DI-BA (ADULT) 133 ML ENEMA PR PRN (17:14)
[2018-07-19] MEDS ORDERED: METHYLPREDNISOLONE INJ 125 MG/2 ML SDV IV ONE (22:45)
--- NOTE | 2018-07-19 23:13 | Progress Note ---
Provider Note Provider Note: CARDIOLOGY PROGRESS NOTE by Dr. Nisreen Aviles on 07/19/2018. SUBJECTIVE: Last night the patient again had some difficulty breathing and will use the BiPAP. At present the patient is on nasal cannula and breathing better. She denies any cough. She has orthopnea. There is no PND. Patient denies any chest pain discomfort. She continues to be in atrial fibrillation with controlled ventricular response on p.o. Cardizem. She denies any leg edema. There is no TIA CVA symptoms. There is no bleeding on Pradaxa. There is no ventricular arrhythmia seen on the monitor. PHYSICAL EXAMINATION: The patient is mildly overweight. She is well-groomed. At present in no acute distress. Selected Entries 07/19/18 15:43 Temperature 97.8 F Temperature Axillary Source Pulse Rate 92 Respiratory 18 Rate Blood Pressure 124/71 Blood Pressure 88 Mean BP Location Right Arm BP Position Supine O2 Sat by Pulse 95 Oximetry Oxygen Flow 3.50 Rate Oxygen Delivery Nasal Cannula Method HEAD: Is atraumatic normocephalic. EYES: Pupils equal round regular react to light accommodation. Extraocular movements are normal. There is no conjunctival pallor. There is no scleral icterus. ENT: Is negative. NECK: Is supple. There is no JVD carotids are equal there is no bruit. There is no lymphadenopathy. There is no goiter. There is no accessory muscles of respiration use. Trachea central. LUNGS: There is diminished air entry prolonged expiration. There is scattered rhonchi, but no wheezing there is dry crackles in the right upper lobe and in the right lower lobe. There is no rales of CHF. HEART: S1-S2 is heard there is no S3 gallop there is no S4 gallop. S1 is of variable intensity. There is systolic murmur left sternal border and the apex there is no rub. Abdomen: Soft. Nontender. There is no hepatosplenomegaly bowel sounds are well heard EXTREMITIES: Femorals are diminished. There is no femoral bruits. There is no cyanosis or clubbing. Leg pulses are diminished. There is no pedal edema. There is no DVT or cellulitis. PSYCHIATRIC: The patient judgment insight are intact her affect is normal. 07/18/18 07/19/18 07/19/18 20:52 04:50 04:50 WBC 9.2 RBC 4.59 Hgb 13.9 Hct 40.8 MCV 89 MCH 30.2 MCHC 34.0 RDW 14.9 H Plt Count 231 Sodium 138.0 Potassium 3.4 L Chloride 94 L Carbon Dioxide 34 H Anion Gap 10 BUN 36 H Creatinine 0.44 L Est GFR (Non-Af Amer) > 60 Glucose 244 H POC Glucose 258 H Calcium 8.5 Magnesium 2.2 Total Bilirubin 0.6 Direct Bilirubin 0.3 Neonat Total Bilirubin Not Reportable Neonat Direct Bilirubin Not Reportable Neonat Indirect Bili Not Reportable AST 27 ALT 35 Alkaline Phosphatase 59 Total Protein 5.8 L Albumin 3.5 IMPRESSION/RECOMMENDATION: 1. Chronic atrial fibrillation: The patient's Cardizem drip has been stopped,, will continue the patient on Cardizem CD at 120 mg p.o. twice daily, and continue the patient's Pradaxa. 2. Acute exacerbation of COPD: Slightly improving continue steroids continue antibiotics and continue respiratory treatments. 3. Hypertension: Well controlled. Continue current medical regimen. 4. Diabetes mellitus: Continue her antidiabetic medications. 5. Pneumonia, and possible lung abscess: Continue antibiotics. 6. History of ASD with Amplatz device closure and [facility]: Discussed the need to take antibiotics for SBP of flexion prior to GI and dental procedures/surgeries with the patient. Medications reviewed. Management plan discussed with attending physician on the case. Medical decision making is of moderate complexity. 40 minutes spent on this patient more than 50% time spent in direct patient care. She is a full code. Her surrogate healthcare decision makers are Mr. Eric Goldstein, and Ms. Jenni Little. Will follow.
[2018-07-20] MEDS: IPRATROPIUM/ALBUTEROL 0.5-2.5 MG/3 ML AMPUL NEB SCH ×4 (02:32→20:24)
[2018-07-20] MEDS: ACETAMINOPHEN 325 MG TABLET PO PRN ×2 (03:34→11:53)
[2018-07-20 05:09] LABS: HEMATOCRIT 40.8 % (36.0-47.0); HEMOGLOBIN 13.9 g/dL (12.0-15.5); MEAN CORPUSCULAR HEMOGLOBIN 30.2 pg (27.0-33.4); MEAN CORPUSCULAR HGB CONC 33.9 g/dL (32.0-36.0); MEAN CORPUSCULAR VOLUME 89 fl (80-97); PLATELET COUNT 253 10^3/uL (150-450); RED BLOOD COUNT 4.59 10^6/uL (3.72-5.28); RED CELL DISTRIBUTION WIDTH 14.5 % (11.5-14.0); WHITE BLOOD COUNT 10.1 10^3/uL (4.0-10.5)
[2018-07-20 05:39] LABS: ABSOLUTE LYMPHOCYTES# (MANUAL) 1.3 10^3/uL (0.5-4.7); ABSOLUTE MONOCYTES # (MANUAL) 0.8 10^3/uL (0.1-1.4); BAND NEUTROPHILS % (MANUAL) 1 % (3-5); BASOPHILS % (MANUAL) 0 % (0-2); EOSINOPHILS % (MANUAL) 0 % (0-6); LYMPHOCYTES % (MANUAL) 13 % (13-45); METAMYELOCYTES % (MANUAL) 1 % (0); MONOCYTES % (MANUAL) 8 % (3-13); SEGMENTED NEUTROPHILS % (MAN) 77 % (42-78); TOTAL CELLS COUNTED 100
[2018-07-20 05:40] LABS: ALANINE AMINOTRANSFERASE 51 U/L (9-52); ALBUMIN 3.5 g/dL (3.5-5.0); ALKALINE PHOSPHATASE 56 U/L (38-126); ANION GAP 10 (5-19); ASPARTATE AMINO TRANSFERASE 27 U/L (14-36); BILIRUBIN,DIRECT 0.3 mg/dL (0.0-0.4); BILIRUBIN,TOTAL 0.7 mg/dL (0.2-1.3); BLOOD UREA NITROGEN 37 mg/dL (7-20); CALCIUM 8.5 mg/dL (8.4-10.2); CARBON DIOXIDE 33 mmol/L (22-30); CHLORIDE 94 mmol/L (98-107); GLUCOSE 236 mg/dL (75-110); PLATELET COMMENT ADEQUATE; RBC MORPHOLOGY COMMENT NORMO-CYTIC/CHROMIC; SODIUM 137.2 mmol/L (137-145); TOTAL PROTEIN 5.8 g/dL (6.3-8.2)
[2018-07-20] MEDS: METHYLPREDNISOLONE INJ 125 MG/2 ML SDV IV SCH ×4 (05:48→21:57)
[2018-07-20] MEDS: INSULIN LISPRO 100 UNIT/ML 3 ML VIAL SUBCUT SCH ×4 (07:57→22:00)
[2018-07-20] MEDS: FUROSEMIDE INJ/PF 20 MG/2 ML SDV IV SCH (09:20)
[2018-07-20] MEDS: DILTIAZEM HCL 120 MG CAP.SR.24H PO SCH (09:20)
[2018-07-20] MEDS: FAMOTIDINE 20 MG TABLET PO SCH ×2 (09:20→21:28)
[2018-07-20] MEDS: DOCUSATE SODIUM 100 MG CAPSULE PO SCH ×2 (09:20→17:16)
[2018-07-20] MEDS: DABIGATRAN ETEXILATE 150 MG CAPSULE PO SCH ×2 (09:20→17:16)
[2018-07-20] MEDS: LEVOFLOXACIN 500 MG/D5W RTU 500 MG/100 ML RTUPB IV SCH (09:21)
[2018-07-20] MEDS: DIGOXIN 0.125 MG TABLET PO SCH (09:21)
[2018-07-20] MEDS: GUAIFENESIN 600 MG TABLET.SA PO SCH ×2 (09:22→21:28)
--- NOTE | 2018-07-20 11:01 | PDOC PROGRESS REPORT ---
Subjective Progress Note for:: 07/20/18 Subjective:: No acute events overnight. Patient could not get a good night sleep because of being too restless. Was using BiPAP on and off. Her shortness of breath has much improved. Denies any chest pain, fever, chills, nausea, vomiting constipation or any urinary symptoms. She has been off of Cardizem drip since yesterday. Blood pressure normotensive. Afebrile. Heart rate is 76-91. Saturating 97% on 3 L. Cultures negative times 5 days. Reason For Visit: ATRIAL FIBRILLATION WITH RVR,COPD Physical Exam Vital Signs: Temp Pulse Resp BP Pulse Ox 97.8 F 87 18 117/66 97 07/20/18 07:45 07/20/18 09:02 07/20/18 09:02 07/20/18 07:45 07/20/18 09:02 Intake & Output 07/19/18 07/20/18 07/21/18 06:59 06:59 06:59 Intake Total 1476 1693 Output Total 2050 2550 Balance -574 -857 Weight 79.2 kg 78.7 kg General appearance: PRESENT: no acute distress, well-developed, well-nourished Head exam: PRESENT: atraumatic, normocephalic Respiratory exam: PRESENT: clear to auscultation rylee, prolonged expiratory phas. ABSENT: rales, rhonchi, wheezes Cardiovascular exam: PRESENT: RRR. ABSENT: diastolic murmur, rubs, systolic murmur GI/Abdominal exam: PRESENT: normal bowel sounds, soft. ABSENT: distended, guarding, mass, organolmegaly, rebound, tenderness Neurological exam: PRESENT: alert, awake, oriented to person, oriented to place, oriented to time, oriented to situation, CN II-XII grossly intact. ABSENT: motor sensory deficit Results Laboratory Results: 07/20/18 04:51 07/20/18 04:51 07/20/18 07/20/18 04:51 04:51 WBC 10.1 RBC 4.59 Hgb 13.9 Hct 40.8 MCV 89 MCH 30.2 MCHC 33.9 RDW 14.5 H Plt Count 253 Seg Neutrophils % Not Reportable Lymphocytes % Not Reportable Monocytes % Not Reportable Eosinophils % Not Reportable Basophils % Not Reportable Absolute Neutrophils Not Reportable Absolute Lymphocytes Not Reportable Absolute Monocytes Not Reportable Absolute Eosinophils Not Reportable Absolute Basophils Not Reportable Sodium 137.2 Potassium 4.0 Chloride 94 L Carbon Dioxide 33 H Anion Gap 10 BUN 37 H Creatinine 0.41 L Est GFR ( Amer) > 60 Est GFR (Non-Af Amer) > 60 Glucose 236 H Calcium 8.5 Magnesium 2.2 Total Bilirubin 0.7 AST 27 ALT 51 Alkaline Phosphatase 56 Total Protein 5.8 L Albumin 3.5 07/15/18 09:43 Blood Blood Culture - Final NO GROWTH IN 5 DAYS 07/12/18 07/15/18 12:07 09:43 Troponin I < 0.012 < 0.012 Impressions: Chest X-Ray 07/15/18 00:00 IMPRESSION: Interval development of a thin walled cavity in the right mid lung, either in the superior segment right lower lobe or inferior aspect right upper lobe. Stable bandlike scarring in the left mid lung and right lung base. Marked cardiomegaly with prominent central pulmonary arteries Chest/Abdomen CTA 07/17/18 08:00 IMPRESSION: 1. No pulmonary emboli. 2. Bilateral airspace opacities, more confluent at the right lower lobe, may be secondary to acute infection/inflammation such as multifocal pneumonia. 1.4 cm cavitary lesion at the right lower lobe, may represent a lung abscess or septic embolus. Followup CT after treatment recommended to ensure complete resolution and exclude underlying neoplasm. 3. Mild mediastinal adenopathy. 4. Cardiomegaly. Dilated main pulmonary artery, may be seen with pulmonary arterial hypertension. 5. Small hiatal hernia. Assessment & Plan - Diagnosis (1) Acute respiratory failure with hypoxia and hypercarbia Is this a current diagnosis for this admission?: Yes Plan: Improving. Saturating 97% on 3 L. Likely caused by acute pulmonary edema secondary to worsening A. fib/COPD exacerbation or pneumonia. Continue BiPAP, nebs, IV steroids, antibiotics. CTA negative for PE but positive for bilateral airspace opacities secondary to acute infection/inflammation such as multifocal pneumonia. Monitor volume status. Pulmonary consulted (2) Pneumonia Qualifiers: Lung location: unspecified part of lung Is this a current diagnosis for this admission?: Yes Plan: Likely hospital-acquired. Improving. WBC 10.1 07/17/2018 CTA negative for PE but positive for bilateral airspace opacities secondary to acute infection/inflammation such as multifocal pneumonia. Continue levo and vancomycin. Cultures negative. Patient is allergic to penicillins. Adjust meds as needed. (3) Atrial fibrillation with RVR Is this a current diagnosis for this admission?: Yes Plan: Rate controlled. Sinus rhythm. Off of Cardizem drip. Continue p.o. Cardizem. No repeat bloody sputum. Continue dabigatran. Monitor for bleeding. (4) Acute exacerbation of chronic obstructive pulmonary disease (COPD) Is this a current diagnosis for this admission?: Yes Plan: As per problem #1. (5) Diabetes mellitus type 2 in nonobese Is this a current diagnosis for this admission?: Yes Plan: Patient is not being treated for diabetes however she is having worsening glucose level likely due to steroids given for her COPD exacerbation. 12/15/2016 A1c 6.6%. Continue Accu-Check sliding scale diabetic diet. Will discharge on metformin to follow-up with PCP. (6) Pulmonary cavitary lesion Is this a current diagnosis for this admission?: Yes Plan: 07/17/2018. CTA positive for 1.4 cm cavitary lesion at the right lower lobe. Pulmonary consulted for further recommendation.
[2018-07-20] MEDS: POLYETHYLENE GLYCOL 3350 POWDER 17 GM/1 PACKET PO SCH (11:54)
[2018-07-20] MEDS: BUDESONIDE/FORMOTEROL 160-4.5 MCG 60 PUFF/6 GM MDI IH SCH ×2 (11:54→22:02)
--- NOTE | 2018-07-20 15:41 | CONSULTATION REPORT E ---
Consultation Report NAME: LEXX KIMBALL : 1955 AGE: 62Y DATE: 07/19/2018 ROOM: 325 A TO: BOBBI AGUIRRE M.D. FROM: LISA granado MD Requesting Physician HISTORY OF PRESENT ILLNESS: The patient is a 62-year-old female who came in about a week ago because of increasing cough with purulent sputum production, which continued the day prior to admission. She denies any fever or chills. No hemoptysis. She claims after she got admitted her purulent sputum production started to become clear. She denies any hemoptysis with chest pain. She claims that her breathing is getting better. She was given IV vancomycin and IV Levaquin 500 mg. Blood culture was negative, and no sputum culture was collected. The patient said that she could not cough out any phlegm for the last few days. PAST MEDICAL HISTORY: Includes atrial fibrillation, congestive heart failure, coronary artery disease, hypertension, heart murmur, COPD, history of pneumonia, history of diverticulitis. SURGICAL HISTORY: Cardiac cath x3, section x2, tubal ligation, polyp removal, closure of atrial septal defect. SOCIAL HISTORY: The patient lives with spouse/significant other. Smokes every day. Denies any alcohol abuse or illicit drug use. FAMILY HISTORY: reviewed and not pertinent. MEDICATIONS: Medications at home include albuterol inhaler, nebulizer, Pradaxa, digoxin, Cardizem, Colace, Trelegy, metformin, ranitidine. ALLERGIES: PENICILLIN, AMPICILLIN, and TETRACYCLINE. REVIEW OF SYSTEMS: CONSTITUTIONAL: Denies any fever or chills. No night sweats. EYES: No visual disturbances. EARS: No hearing changes or ear discharges. NOSE, MOUTH, AND THROAT: Has sore throat from coughing. No mouth pain. CARDIOVASCULAR: Complains of chest pain, chest tightness, and palpitations. No peripheral edema. RESPIRATORY: Complains of orthopnea, purulent sputum production, and dyspnea. No hemoptysis. GASTROINTESTINAL: No nausea, vomiting, diarrhea, or abdominal pain. GENITOURINARY: No dysuria or hematuria. MUSCULOSKELETAL: No deformity. SKIN: No lesions or rash. CENTRAL NERVOUS SYSTEM: No confusion. No focal weakness. No vertigo. PHYSICAL EXAMINATION: GENERAL: The patient is awake, alert, coherent, oriented x3. VITAL SIGNS: Temperature is 97.4 with a T-max of 98.2. Heart rate is 96, blood pressure is 115/66, respiratory rate is 18, and oxygen saturation is 95% on nasal cannula on 3.5 L. EYES: No jaundice or pallor. EARS, NOSE, AND THROAT: No ear drainage. No nasal discharge. CHEST AND LUNGS: No wheezing, no rhonchi, and no coarse crackles. Fine rales in the right lower lobe. ABDOMEN: Flabby. Positive bowel sounds. Soft, nondistended, and nontender. EXTREMITIES: No joint swelling. No cellulitis. LABORATORY: CBC done today showed a white count of 9.2; 15.1 four days ago. Hemoglobin is 13.9, hematocrit is 40.8, platelet count is 231; no bands noted. Chemistry done today showed sodium is 158, potassium is 3.4, chloride 94, CO2 is 34, BUN 36, creatinine 0.44, glucose 244, calcium 8.5, magnesium 2.2, total bili 0.6, and direct bili 0.3. IMAGING: Chest x-ray done on July 17 showed persistent infiltrates in the right lower lobe. Lung CAT scan done on July 17, 2018 showed enlarged right lower lobe opacities suggestive of pneumonic opacity. ASSESSMENT: 1. Pneumonia, right lower lung base, appears to be clinically improving. White count is normal. 2. Congestive heart failure, atrial fibrillation, and coronary artery disease. 3. History of COPD/asthma. PLAN/RECOMMENDATIONS: 1. Continue antibiotics. May consider sending the patient home on either Levaquin for an additional 1 week or doxycycline 100 mg once daily for an additional 1 week upon hospital discharge. 2. We are going to start the patient on Symbicort 2 puffs twice a day. 3. Albuterol inhaler 2 puffs every 6 hours as needed. 4. Continue Lasix, Cardizem, and digoxin. 5. Recommend home oxygen therapy evaluation by Respiratory Therapy to determine need for home oxygen therapy. 6. Recommend Pulmonary Clinic followup in 3 to 4 weeks after hospital discharge. DICTATING PHYSICIAN: BOBBI AGUIRRE MD,ALYSSA,MPH [id number] PHY#: [id number] ID: [id number] JOB#: [id number] ACCT: [id number] cc:BOBBI AGUIRRE M.D. > ASIYA
[2018-07-20] MEDS ORDERED: VANCOMYCIN HCL 750 MG in DEXTROSE 5%-WATER 250 ML IV SCH (18:00)
[2018-07-20 18:42] LABS: VANCOMYCIN,TROUGH < 5.0 ug/mL (5.0-20.0)
[2018-07-20] MEDS ORDERED: DILTIAZEM HCL 120 MG CAP.SR.24H PO ONE (23:00)
[2018-07-21] MEDS: IPRATROPIUM/ALBUTEROL 0.5-2.5 MG/3 ML AMPUL NEB SCH ×4 (03:02→20:37)
[2018-07-21] MEDS: METHYLPREDNISOLONE INJ 125 MG/2 ML SDV IV SCH ×2 (05:23→13:01)
[2018-07-21] MEDS: VANCOMYCIN HCL 1,250 MG in DEXTROSE 5%-WATER 250 ML IV SCH ×2 (05:24→18:15)
[2018-07-21 06:06] LABS: ABSOLUTE LYMPHOCYTES (AUTO) 1.1 10^3/uL (0.5-4.7); ABSOLUTE MONOCYTES (AUTO) 0.6 10^3/uL (0.1-1.4); ABSOLUTE NEUT (AUTO) 10.9 10^3/uL (1.7-8.2); BASOPHILS % (AUTO) 0.1 % (0-2); HEMATOCRIT 41.5 % (36.0-47.0); HEMOGLOBIN 14.2 g/dL (12.0-15.5); LYMPHOCYTES % (AUTO) 8.8 % (13-45); MEAN CORPUSCULAR HEMOGLOBIN 30.4 pg (27.0-33.4); MEAN CORPUSCULAR HGB CONC 34.3 g/dL (32.0-36.0); MEAN CORPUSCULAR VOLUME 89 fl (80-97); MONOCYTES % (AUTO) 4.5 % (3-13); PLATELET COUNT 271 10^3/uL (150-450); RED BLOOD COUNT 4.67 10^6/uL (3.72-5.28); RED CELL DISTRIBUTION WIDTH 14.4 % (11.5-14.0); SEGMENTED NEUTROPHILS % (AUTO) 86.6 % (42-78); TOTAL CELLS COUNTED % (AUTO) 100 %; WHITE BLOOD COUNT 12.5 10^3/uL (4.0-10.5)
[2018-07-21 06:22] LABS: ALANINE AMINOTRANSFERASE 47 U/L (9-52); ALBUMIN 3.5 g/dL (3.5-5.0); ALKALINE PHOSPHATASE 61 U/L (38-126); ANION GAP 10 (5-19); ASPARTATE AMINO TRANSFERASE 19 U/L (14-36); BILIRUBIN,DIRECT 0.2 mg/dL (0.0-0.4); BILIRUBIN,TOTAL 0.8 mg/dL (0.2-1.3); BLOOD UREA NITROGEN 28 mg/dL (7-20); CALCIUM 8.6 mg/dL (8.4-10.2); CARBON DIOXIDE 31 mmol/L (22-30); CHLORIDE 94 mmol/L (98-107); GLUCOSE 248 mg/dL (75-110); SODIUM 135.3 mmol/L (137-145); TOTAL PROTEIN 5.8 g/dL (6.3-8.2)
[2018-07-21] MEDS: INSULIN LISPRO 100 UNIT/ML 3 ML VIAL SUBCUT SCH ×4 (08:05→21:22)
[2018-07-21] MEDS: BUDESONIDE/FORMOTEROL 160-4.5 MCG 60 PUFF/6 GM MDI IH SCH ×2 (09:29→21:38)
[2018-07-21] MEDS: LEVOFLOXACIN 500 MG/D5W RTU 500 MG/100 ML RTUPB IV SCH (09:29)
[2018-07-21] MEDS: DABIGATRAN ETEXILATE 150 MG CAPSULE PO SCH ×2 (09:30→17:38)
[2018-07-21] MEDS: FAMOTIDINE 20 MG TABLET PO SCH ×2 (09:30→21:24)
[2018-07-21] MEDS: DOCUSATE SODIUM 100 MG CAPSULE PO SCH ×2 (09:30→17:38)
[2018-07-21] MEDS: DILTIAZEM HCL 120 MG CAP.SR.24H PO SCH ×2 (09:30→21:24)
[2018-07-21] MEDS: DIGOXIN 0.125 MG TABLET PO SCH (09:31)
[2018-07-21] MEDS: GUAIFENESIN 600 MG TABLET.SA PO SCH ×2 (09:31→21:24)
[2018-07-21] MEDS: POLYETHYLENE GLYCOL 3350 POWDER 17 GM/1 PACKET PO SCH (12:58)
--- NOTE | 2018-07-21 13:01 | PDOC PROGRESS REPORT ---
Subjective Progress Note for:: 07/21/18 Subjective:: No acute events overnight. Shortness of breath has improved, patient is p.o. tolerant, having normal bowel and bladder movements. She is denying any fever, chills, nausea, vomiting, diarrhea, constipation or any urinary symptoms. SBP 79-125 asymptomatic. Afebrile, heart rate 73-108 Cultures have been negative, patient is having mild leukocytosis with no bandemi a. Plan was to send patient home on either Levaquin or doxycycline for 1 week to follow-up with pulmonary for reevaluation of right lower lobe cavitary lesion, but unfortunately patient's white blood cells has increased to 12.5 from 10.1. With persistent expiratory wheezes. If patient is stable tomorrow she could potentially be discharged home on 1 week of either doxycycline or levofloxacin and to follow-up with Dr. Ardon as outpatient who has kindly accepted to see her as outpatient for reevaluation of right lower lobe cavitary lesion. Reason For Visit: ATRIAL FIBRILLATION WITH RVR,COPD Physical Exam Vital Signs: Temp Pulse Resp BP Pulse Ox 97.5 F 104 H 18 115/96 H 93 07/21/18 08:00 07/21/18 08:00 07/21/18 08:00 07/21/18 08:00 07/21/18 08:00 Intake & Output 07/20/18 07/21/18 07/22/18 06:59 06:59 06:59 Intake Total 1693 1555 Output Total 2550 100 Balance -857 1455 Weight 78.7 kg 78.1 kg 78.1 kg General appearance: PRESENT: no acute distress, well-developed, well-nourished Head exam: PRESENT: atraumatic, normocephalic Respiratory exam: PRESENT: clear to auscultation rylee, wheezes. ABSENT: rales, rhonchi Cardiovascular exam: PRESENT: RRR. ABSENT: diastolic murmur, rubs, systolic murmur Neurological exam: PRESENT: alert, awake, oriented to person, oriented to place, oriented to time, oriented to situation, CN II-XII grossly intact. ABSENT: motor sensory deficit Results Laboratory Results: 07/21/18 05:41 07/21/18 05:41 07/21/18 07/21/18 05:41 05:41 WBC 12.5 H RBC 4.67 Hgb 14.2 Hct 41.5 MCV 89 MCH 30.4 MCHC 34.3 RDW 14.4 H Plt Count 271 Seg Neutrophils % 86.6 H Lymphocytes % 8.8 L Monocytes % 4.5 Eosinophils % 0.0 Basophils % 0.1 Absolute Neutrophils 10.9 H Absolute Lymphocytes 1.1 Absolute Monocytes 0.6 Absolute Eosinophils 0.0 Absolute Basophils 0.0 Sodium 135.3 L Potassium 4.0 Chloride 94 L Carbon Dioxide 31 H Anion Gap 10 BUN 28 H Creatinine 0.44 L Est GFR ( Amer) > 60 Est GFR (Non-Af Amer) > 60 Glucose 248 H Calcium 8.6 Magnesium 2.3 Total Bilirubin 0.8 AST 19 ALT 47 Alkaline Phosphatase 61 Total Protein 5.8 L Albumin 3.5 07/15/18 11:56 Blood Blood Culture - Final NO GROWTH IN 5 DAYS 07/15/18 09:43 Blood Blood Culture - Final NO GROWTH IN 5 DAYS 07/12/18 07/15/18 12:07 09:43 Troponin I < 0.012 < 0.012 Impressions: Chest X-Ray 07/15/18 00:00 IMPRESSION: Interval development of a thin walled cavity in the right mid lung, either in the superior segment right lower lobe or inferior aspect right upper lobe. Stable bandlike scarring in the left mid lung and right lung base. Marked cardiomegaly with prominent central pulmonary arteries Chest/Abdomen CTA 07/17/18 08:00 IMPRESSION: 1. No pulmonary emboli. 2. Bilateral airspace opacities, more confluent at the right lower lobe, may be secondary to acute infection/inflammation such as multifocal pneumonia. 1.4 cm cavitary lesion at the right lower lobe, may represent a lung abscess or septic embolus. Followup CT after treatment recommended to ensure complete resolution and exclude underlying neoplasm. 3. Mild mediastinal adenopathy. 4. Cardiomegaly. Dilated main pulmonary artery, may be seen with pulmonary arterial hypertension. 5. Small hiatal hernia. Assessment & Plan - Diagnosis (1) Acute respiratory failure with hypoxia and hypercarbia Is this a current diagnosis for this admission?: Yes Plan: Improving. Saturating 97% on 1 L. Likely caused by acute pulmonary edema secondary to worsening A. fib/COPD exacerbation or pneumonia. Continue BiPAP, nebs, IV steroids, antibiotics. CTA negative for PE but positive for bilateral airspace opacities secondary to acute infection/inflammation such as multifocal pneumonia. Monitor volume status. Pulmonary on board. (2) Pneumonia Qualifiers: Lung location: unspecified part of lung Is this a current diagnosis for this admission?: Yes Plan: Likely hospital-acquired. 07/17/2018 CTA negative for PE but positive for bilateral airspace opacities secondary to acute infection/inflammation such as multifocal pneumonia. Day 7 of levofloxacin. Day 5 of vancomycin. Day 5 of vancomycin Cultures negative. Patient is allergic to penicillins. Adjust meds as needed. Plan was to send patient home on either Levaquin or doxycycline for 1 week to follow-up with pulmonary for reevaluation of right lower lobe cavitary lesion, but unfortunately patient's white blood cells has increased to 12.5 from 10.1. With persistent expiratory wheezes. If patient is stable tomorrow she could potentially be discharged home on 1 week of either doxycycline or levofloxacin and to follow-up with Dr. Ardon as outpatient who has kindly accepted to see her as outpatient for reevaluation of right lower lobe cavitary lesion. (3) Atrial fibrillation with RVR Is this a current diagnosis for this admission?: Yes Plan: Rate controlled. Continue p.o. Cardizem. Continue dabigatran. Outpatient PCP and cardiology follow-up. (4) Acute exacerbation of chronic obstructive pulmonary disease (COPD) Is this a current diagnosis for this admission?: Yes Plan: As per problem #1. (5) Diabetes mellitus type 2 in nonobese Is this a current diagnosis for this admission?: Yes Plan: Continue Accu-Chek. Sliding insulin scale insulin outpatient PCP follow-up. 12/15/2016 A1c 6.6%. Patient is not being treated for diabetes however she is having high blood glucose level likely due to steroids given for her COPD exacerbation. Patient could be discharged on metformin to follow-up with PCP (6) Pulmonary cavitary lesion Is this a current diagnosis for this admission?: Yes Plan: She needs to be reevaluated as outpatient by [facility] once her pneumonia is treated. 07/17/2018. CTA positive for 1.4 cm cavitary lesion at the right lower lobe. I talked with Dr. Ardon who has kindly agreed to see patient as outpatient for reevaluation of her cavitary lesion. Discharge planning has been consulted for making appointment for patient to see Dr. Ardon as outpatient in 1-2 weeks.
--- NOTE | 2018-07-21 13:02 | PDOC PROGRESS REPORT ---
Subjective Progress Note for:: 07/15/18 Subjective:: She developed acute hypoxic hypercarbic respiratory failure and was transferred to [facility] placed on BiPAP and Cardizem drip. Patient responded well to BiPAP treatment. Reason For Visit: ATRIAL FIBRILLATION WITH RVR,COPD Physical Exam Vital Signs: Temp Pulse Resp BP Pulse Ox 98.3 F 100 30 H 115/75 95 07/15/18 16:37 07/15/18 16:37 07/15/18 16:37 07/15/18 16:37 07/15/18 16:37 Intake & Output 07/14/18 07/15/18 07/16/18 06:59 06:59 06:59 Intake Total 1564 1759 700 Output Total 900 1500 1000 Balance 664 259 -300 Weight 82.2 kg 84.1 kg General appearance: PRESENT: severe distress Head exam: PRESENT: atraumatic, normocephalic Respiratory exam: PRESENT: crackles, decreased breath sounds, prolonged expiratory phas, wheezes Cardiovascular exam: PRESENT: irregular rhythm, tachycardia Pulses: PRESENT: normal dorsalis pedis pul Vascular exam: PRESENT: normal capillary refill GI/Abdominal exam: PRESENT: normal bowel sounds, soft. ABSENT: distended, guarding, mass, organolmegaly, rebound, tenderness Extremities exam: PRESENT: full ROM. ABSENT: calf tenderness, clubbing, pedal edema Neurological exam: PRESENT: alert, awake, oriented to person, oriented to place, oriented to time, oriented to situation, CN II-XII grossly intact. ABSENT: motor sensory deficit Results Laboratory Results: 07/15/18 06:00 07/15/18 06:00 07/15/18 07/15/18 07/15/18 06:00 06:00 14:15 WBC 13.1 H D RBC 4.42 Hgb 13.2 Hct 40.1 MCV 91 MCH 29.9 MCHC 32.9 RDW 15.4 H Plt Count 193 Seg Neutrophils % Not Reportable Lymphocytes % Not Reportable Monocytes % Not Reportable Eosinophils % Not Reportable Basophils % Not Reportable Absolute Neutrophils Not Reportable Absolute Lymphocytes Not Reportable Absolute Monocytes Not Reportable Absolute Eosinophils Not Reportable Absolute Basophils Not Reportable Carbonic Acid 1.79 H HCO3/H2CO3 Ratio 15:1 ABG pH 7.30 L ABG pCO2 59.5 H ABG pO2 59.5 L ABG HCO3 28.6 H ABG O2 Saturation 87.6 L ABG Base Excess 0.6 FiO2 5L Sodium 137.5 Potassium 4.8 Chloride 97 L Carbon Dioxide 29 Anion Gap 12 BUN 27 H Creatinine 0.49 L Est GFR ( Amer) > 60 Est GFR (Non-Af Amer) > 60 Glucose 244 H Calcium 9.5 Magnesium 1.7 Total Bilirubin 0.3 AST 42 H ALT 46 Alkaline Phosphatase 66 Total Protein 6.4 Albumin 4.3 07/12/18 07/15/18 12:07 09:43 Troponin I < 0.012 < 0.012 Impressions: Chest X-Ray 07/15/18 00:00 IMPRESSION: Interval development of a thin walled cavity in the right mid lung, either in the superior segment right lower lobe or inferior aspect right upper lobe. Stable bandlike scarring in the left mid lung and right lung base. Marked cardiomegaly with prominent central pulmonary arteries Assessment & Plan - Diagnosis (1) Acute respiratory failure with hypoxia and hypercarbia Is this a current diagnosis for this admission?: Yes Plan: Likely due to acute pulmonary edema caused by worsening A. fib/COPD exacerbation. 07/15/2018 ABG: PH 7.30, PCO2 59.5, PO2 59.5, O2 sat 87.6, FiO2 5 L. Patient transferred to [facility] started on BiPAP and Cardizem drip as well as IV Lasix. Continue cardizem drip, BiPAP, nebs, IV steroids, p.o. antibiotics. ABG in the morning. Follow-up CTA. Monitor volume status. (2) Atrial fibrillation with RVR Is this a current diagnosis for this admission?: Yes Plan: Not controlled. Started on Cardizem drip. Will switch back to p.o. Cardizem once stable. Patient had one episode of blood-tinged sputum. Caused by excessive coughing. Hold evening dose of dabigatran. Restart tomorrow if no sign of bleeding. (3) Acute exacerbation of chronic obstructive pulmonary disease (COPD) Is this a current diagnosis for this admission?: Yes Plan: As per problem #1. (4) Diabetes mellitus type 2 in nonobese Is this a current diagnosis for this admission?: Yes Plan: 12/15/2016 A1c 6.6%. Patient is not being treated for diabetes however she is having high blood glucose level likely due to steroids given for her COPD exacerbation. Continue Accu-Chek. Outpatient PCP follow-up. (5) Diastolic CHF Is this a current diagnosis for this admission?: Yes Plan: Monitor volume status. Restart home meds.
[2018-07-21] MEDS: ACETAMINOPHEN 325 MG TABLET PO PRN (13:06)
[2018-07-21] MEDS: METHYLPREDNISOLONE INJ 40 MG/1 ML SDV IV SCH (21:25)
[2018-07-22] MEDS: IPRATROPIUM/ALBUTEROL 0.5-2.5 MG/3 ML AMPUL NEB SCH ×4 (02:29→20:57)
[2018-07-22] MEDS: VANCOMYCIN HCL 1,250 MG in DEXTROSE 5%-WATER 250 ML IV SCH (06:24)
[2018-07-22] MEDS: INSULIN LISPRO 100 UNIT/ML 3 ML VIAL SUBCUT SCH ×4 (08:33→22:05)
[2018-07-22] MEDS: DABIGATRAN ETEXILATE 150 MG CAPSULE PO SCH ×2 (09:22→17:26)
[2018-07-22] MEDS: DOCUSATE SODIUM 100 MG CAPSULE PO SCH ×2 (09:22→17:26)
[2018-07-22] MEDS: METHYLPREDNISOLONE INJ 40 MG/1 ML SDV IV SCH ×2 (09:23→22:04)
[2018-07-22] MEDS: DIGOXIN 0.125 MG TABLET PO SCH (09:23)
[2018-07-22] MEDS: FAMOTIDINE 20 MG TABLET PO SCH ×2 (09:23→22:05)
[2018-07-22] MEDS: DILTIAZEM HCL 120 MG CAP.SR.24H PO SCH ×2 (09:23→22:05)
[2018-07-22] MEDS: GUAIFENESIN 600 MG TABLET.SA PO SCH ×2 (09:23→22:05)
[2018-07-22] MEDS: BUDESONIDE/FORMOTEROL 160-4.5 MCG 60 PUFF/6 GM MDI IH SCH ×2 (09:29→22:06)
[2018-07-22] MEDS: LEVOFLOXACIN 500 MG/D5W RTU 500 MG/100 ML RTUPB IV SCH (09:30)
[2018-07-22] MEDS: POLYETHYLENE GLYCOL 3350 POWDER 17 GM/1 PACKET PO SCH (11:32)
--- NOTE | 2018-07-22 19:22 | PDOC PROGRESS REPORT ---
Subjective Progress Note for:: 07/22/18 Subjective:: spoke with patient this morning. states she feels much better. tells me she's on 2.5L O2 at home at night only. discussed about plan of care. she denies chest pain, SOB, abdominal pain, n/v or dizziness at this time. Reason For Visit: ATRIAL FIBRILLATION WITH RVR,COPD Physical Exam Vital Signs: Temp Pulse Resp BP Pulse Ox 98.0 F 99 18 133/86 H 95 07/22/18 11:26 07/22/18 11:26 07/22/18 11:26 07/22/18 11:26 07/22/18 11:26 Intake & Output 07/21/18 07/22/18 07/23/18 06:59 06:59 06:59 Intake Total 1555 973 350 Output Total 100 Balance 1455 973 350 Weight 172 lb 2.896 oz 174 lb 6.17 oz General appearance: PRESENT: no acute distress Head exam: PRESENT: atraumatic, normocephalic Eye exam: PRESENT: conjunctival injection, EOMI. ABSENT: scleral icterus Mouth exam: PRESENT: moist, tongue midline Neck exam: ABSENT: tracheal deviation Respiratory exam: PRESENT: decreased breath sounds - at the bases bilaterally, symmetrical, other - on 1L O2 Cardiovascular exam: PRESENT: +S1, +S2 Pulses: PRESENT: +1 pedal pulses bilateral GI/Abdominal exam: PRESENT: normal bowel sounds, soft. ABSENT: tenderness Extremities exam: ABSENT: pedal edema Neurological exam: PRESENT: alert, awake, oriented to person, oriented to place, oriented to time, oriented to situation, CN II-XII grossly intact Skin exam: PRESENT: dry, warm Results Laboratory Results: 07/21/18 05:41 07/21/18 05:41 07/12/18 07/15/18 12:07 09:43 Troponin I < 0.012 < 0.012 Impressions: Chest X-Ray 07/15/18 00:00 IMPRESSION: Interval development of a thin walled cavity in the right mid lung, either in the superior segment right lower lobe or inferior aspect right upper lobe. Stable bandlike scarring in the left mid lung and right lung base. Marked cardiomegaly with prominent central pulmonary arteries Chest/Abdomen CTA 07/17/18 08:00 IMPRESSION: 1. No pulmonary emboli. 2. Bilateral airspace opacities, more confluent at the right lower lobe, may be secondary to acute infection/inflammation such as multifocal pneumonia. 1.4 cm cavitary lesion at the right lower lobe, may represent a lung abscess or septic embolus. Followup CT after treatment recommended to ensure complete resolution and exclude underlying neoplasm. 3. Mild mediastinal adenopathy. 4. Cardiomegaly. Dilated main pulmonary artery, may be seen with pulmonary arterial hypertension. 5. Small hiatal hernia. Assessment & Plan - Diagnosis (1) Atrial fibrillation with RVR Is this a current diagnosis for this admission?: Yes (2) Pulmonary cavitary lesion Is this a current diagnosis for this admission?: Yes (3) Acute exacerbation of chronic obstructive pulmonary disease (COPD) Is this a current diagnosis for this admission?: Yes (4) Acute on chronic respiratory failure with hypoxemia Is this a current diagnosis for this admission?: Yes (5) Diabetes mellitus type 2 in nonobese Is this a current diagnosis for this admission?: Yes (6) Pneumonia Qualifiers: Lung location: unspecified part of lung Is this a current diagnosis for this admission?: Yes - Plan Summary Plan Summary: pna- currently on levaquin. vanco stopped. spoke with Dr Ardon- appreciate assistance. BCx neg. dr ardon recommends d/c on levaquin for 5 more days. she will follow up with him outpatient to repeat imaging and follow up on cavitary lersion. she will need prednisone on d/c but due to her DM she will need to be tapered quickly. cavitary lesion- BCx negative. see plan. Echo done- poor quality due to body habitus- but no vegetations noted. acute on chronic respiratory failure with hypoxia- she has been weaned off O2 - she does use O2 2.5L at home at night only. DM- although A1c is well controlled - her glucose has been running high due to steroid use. possible d/c home in AM on levaquin and steroids
[2018-07-23] MEDS: IPRATROPIUM/ALBUTEROL 0.5-2.5 MG/3 ML AMPUL NEB SCH ×2 (02:41→08:32)
[2018-07-23 06:46] LABS: VANCOMYCIN,TROUGH < 5.0 ug/mL (5.0-20.0)
[2018-07-23 08:32] LABS: ANION GAP 8 (5-19); BLOOD UREA NITROGEN 26 mg/dL (7-20); CALCIUM 8.6 mg/dL (8.4-10.2); CARBON DIOXIDE 30 mmol/L (22-30); CHLORIDE 98 mmol/L (98-107); GLUCOSE 181 mg/dL (75-110); POTASSIUM 4.6 mmol/L (3.6-5.0); SODIUM 136.1 mmol/L (137-145)
[2018-07-23] MEDS: INSULIN LISPRO 100 UNIT/ML 3 ML VIAL SUBCUT SCH ×2 (08:48→11:50)
[2018-07-23] MEDS: METHYLPREDNISOLONE INJ 40 MG/1 ML SDV IV SCH (08:59)
[2018-07-23] MEDS: LEVOFLOXACIN 500 MG/D5W RTU 500 MG/100 ML RTUPB IV SCH (09:00)
[2018-07-23] MEDS: GUAIFENESIN 600 MG TABLET.SA PO SCH (09:01)
[2018-07-23] MEDS: DOCUSATE SODIUM 100 MG CAPSULE PO SCH (09:01)
[2018-07-23] MEDS: DIGOXIN 0.125 MG TABLET PO SCH (09:01)
[2018-07-23] MEDS: FAMOTIDINE 20 MG TABLET PO SCH (09:01)
[2018-07-23] MEDS: DILTIAZEM HCL 120 MG CAP.SR.24H PO SCH (09:01)
[2018-07-23] MEDS: BUDESONIDE/FORMOTEROL 160-4.5 MCG 60 PUFF/6 GM MDI IH SCH (09:02)
[2018-07-23] MEDS: DABIGATRAN ETEXILATE 150 MG CAPSULE PO SCH (09:09)
[2018-07-23] MEDS: POLYETHYLENE GLYCOL 3350 POWDER 17 GM/1 PACKET PO SCH (11:49)
[2018-07-23 12:33] VITALS: BP 169/57
--- NOTE | 2018-07-23 15:26 | PDOC DISCHARGE SUMMARY ---
General - Admit/Disc Date/PCP Admission Date/Primary Care Provider: 07/12/18 13:35 ASCENCION CASH MD Discharge Date: 07/23/18 - Discharge Diagnosis (1) Atrial fibrillation with RVR Is this a current diagnosis for this admission?: Yes (2) Pulmonary cavitary lesion Is this a current diagnosis for this admission?: Yes (3) Acute exacerbation of chronic obstructive pulmonary disease (COPD) Is this a current diagnosis for this admission?: Yes (4) Acute on chronic respiratory failure with hypoxemia Is this a current diagnosis for this admission?: Yes (5) Diabetes mellitus type 2 in nonobese Is this a current diagnosis for this admission?: Yes (6) Pneumonia Is this a current diagnosis for this admission?: Yes - Additional Information Resuscitation Status: Full Code Discharge Diet: Cardiac, Diabetic Discharge Activity: Activity As Tolerated, Balance Activity w/Rest, Energy Conservation, Weigh Daily Prescriptions: Diltiazem HCl [Cardizem Cd 120 mg Capsule] 120 mg PO Q12 #60 cap.sr.24h Levofloxacin [Levaquin 500 mg Tablet] 500 mg PO DAILY #5 tablet Prednisone [Deltasone 10 mg Tablet] 10 mg PO ASDIR 6 Days #7 tablet Prednisone [Deltasone 20 mg Tablet] 20 mg PO ASDIR 6 Days #7 tablet Home Medications: Albuterol Sulfate [Proair HFA Inhalation Aerosol 8.5 gm MDI] 2 puff IH Q4HP PRN 07/12/18 Dabigatran Etexilate Mesylate [Pradaxa 150 mg Capsule] 150 mg PO BID 07/12/18 Digoxin [Lanoxin 0.125 mg Tablet] 0.125 mg PO DAILY 07/12/18 Docusate Sodium [Colace 100 mg Capsule] 100 mg PO DAILY 07/12/18 Fluticasone/Umeclidin/Vilanter [Trelegy 100-62.5-25 Mcg Ellipta 14 Dose/Dpi] 1 puff IH DAILY 07/12/18 Metformin HCl [Glucophage 500 mg Tablet] 500 mg PO BID 07/12/18 Ranitidine HCl [Zantac 150 mg Tablet] 150 mg PO QHS 07/12/18 Zafirlukast [Accolate 20 mg Tablet] 40 mg PO BID 07/12/18 Diltiazem HCl [Cardizem Cd 120 mg Capsule] 120 mg PO Q12 #60 cap.sr.24h 07/23/18 Levofloxacin [Levaquin 500 mg Tablet] 500 mg PO DAILY #5 tablet 07/23/18 Prednisone [Deltasone 10 mg Tablet] 10 mg PO ASDIR 6 Days #7 tablet 07/23/18 Prednisone [Deltasone 20 mg Tablet] 20 mg PO ASDIR 6 Days #7 tablet 07/23/18 History of Present Illness History of Present Illness: LEXX KIMBALL is a 62 year old female Hospital Course Hospital Course: after admission to the hospital she was started on cardizem gtt and later transitioned to PO cardizem. cardiology evaluated patient and increased her 120mg cardizem to BID dosing. she follows up with Dr Bob and will do so after discharge. advised her to check blood pressure twice a day before taking her meds. COPD exacerbation she was started on aggressive pulmonary hygiene and solumedrol. CTA chest did not show PE but showed cavitary lesion and pneumonia- she was continued on ABx and Dr Cash consulted. he recommends d/c on levaquin for 5 more days and prednisone taper- but i did a short taper since she has diabetes. advised to check blood glucose. she will need repeat CT chest to f/u resolution of cavitary lesion- she verbalized that she will need to f/u with dR cash within 2 weeks. start taking levaquin daily for 5 days starting 07/24/18 start taking prednisone 40mg for 2 days, then 20mg for 2 days and then 10mg for 2 days. start taking cardizem 120mg twice day- talk to your cardiology, Dr Bob about this. check your blood pressure twice a day prior to taking your blood pressure pill- if you systolic blood pressure is less than 100 then do not take the medicine and call your PCP about this. follow up with [facility] within [address] chest to follow up with your cavitary lesion follow up with your PCP, Dr Rose- call to make appointment within 1 week follow up with your cardiology dr bob within 1 week regarding your atrial fibrillation and change his your medication check your blood glucose three times day - if you glucose is greater than 400 than call your PCP immediately. Physical Exam Vital Signs: Temp Pulse Resp BP Pulse Ox 97.8 F 99 18 169/57 H 95 07/23/18 12:32 07/23/18 12:32 07/23/18 12:32 07/23/18 12:32 07/23/18 12:32 Intake & Output 07/22/18 07/23/18 07/24/18 06:59 06:59 06:59 Intake Total 973 1676 100 Balance 973 1676 100 Weight 174 lb 6.17 oz 174 lb 13.225 oz General appearance: PRESENT: no acute distress Head exam: PRESENT: atraumatic, normocephalic Eye exam: PRESENT: EOMI. ABSENT: conjunctival injection, scleral icterus Ear exam: PRESENT: normal external ear exam Mouth exam: PRESENT: moist, tongue midline Neck exam: ABSENT: tracheal deviation Respiratory exam: PRESENT: clear to auscultation rylee, symmetrical. ABSENT: rhonchi, wheezes Cardiovascular exam: PRESENT: +S1, +S2 Pulses: PRESENT: +2 pedal pulses bilateral GI/Abdominal exam: PRESENT: normal bowel sounds, soft. ABSENT: tenderness Extremities exam: ABSENT: pedal edema Neurological exam: PRESENT: alert, awake, oriented to person, oriented to place, oriented to time, oriented to situation, CN II-XII grossly intact Skin exam: PRESENT: dry, warm Results Laboratory Results: 07/21/18 05:41 07/23/18 05:45 07/23/18 07/23/18 05:45 05:45 Sodium 136.1 L Potassium 4.6 Chloride 98 Carbon Dioxide 30 Anion Gap 8 BUN 26 H Creatinine 0.48 L 0.49 L Est GFR ( Amer) > 60 > 60 Est GFR (Non-Af Amer) > 60 > 60 Glucose 181 H Calcium 8.6 Magnesium 2.2 07/12/18 07/15/18 12:07 09:43 Troponin I < 0.012 < 0.012 Impressions: Chest X-Ray 07/15/18 00:00 IMPRESSION: Interval development of a thin walled cavity in the right mid lung, either in the superior segment right lower lobe or inferior aspect right upper lobe. Stable bandlike scarring in the left mid lung and right lung base. Marked cardiomegaly with prominent central pulmonary arteries Chest/Abdomen CTA 07/17/18 08:00 IMPRESSION: 1. No pulmonary emboli. 2. Bilateral airspace opacities, more confluent at the right lower lobe, may be secondary to acute infection/inflammation such as multifocal pneumonia. 1.4 cm cavitary lesion at the right lower lobe, may represent a lung abscess or septic embolus. Followup CT after treatment recommended to ensure complete resolution and exclude underlying neoplasm. 3. Mild mediastinal adenopathy. 4. Cardiomegaly. Dilated main pulmonary artery, may be seen with pulmonary arterial hypertension. 5. Small hiatal hernia. Qualifiers - * PATIENT BEING DISCHARGED WITH ANY OF THE FOLLOWING DIAGNOSIS: No Plan Time Spent: Less than 30 Minutes
== END 2018-07-23 14:01 | disposition home or self-care (01) | DRG 308 ==
LOC: ER 11:47 → EH 13:35 → 4N 20:50 → 3W 07-15 15:08
PROVIDERS: ADMIT Hospitalist; ATTEND Hospitalist
PROC: 5A09357 Assistance with Respiratory Ventilation, Less than 24 Consecutive Hours, Continuous Positive Airway Pressure (ICD-10-PCS; principal; 2018-07-12)
PROC: 3E0F3GC Introduction of Other Therapeutic Substance into Respiratory Tract, Percutaneous Approach (ICD-10-PCS; 2018-07-12)
DX: I48.2 Chronic atrial fibrillation (principal); J96.02 Acute respiratory failure with hypercapnia; J18.9 Pneumonia, unspecified organism; J96.21 Acute and chronic respiratory failure with hypoxia; J44.1 Chronic obstructive pulmonary disease with (acute) exacerbation; K57.92 Diverticulitis of intestine, part unspecified, without perforation or abscess without bleeding; I50.32 Chronic diastolic (congestive) heart failure; J44.0 Chronic obstructive pulmonary disease with (acute) lower respiratory infection; I11.0 Hypertensive heart disease with heart failure; Z99.81 Dependence on supplemental oxygen; E66.01 Morbid (severe) obesity due to excess calories; R91.8 Other nonspecific abnormal finding of lung field; I25.10 Atherosclerotic heart disease of native coronary artery without angina pectoris; F17.200 Nicotine dependence, unspecified, uncomplicated; E11.9 Type 2 diabetes mellitus without complications; E87.6 Hypokalemia; Y95 Nosocomial condition; Z79.84 Long term (current) use of oral hypoglycemic drugs; Z87.01 Personal history of pneumonia (recurrent); Z88.0 Allergy status to penicillin; Z71.6 Tobacco abuse counseling; Z68.28 Body mass index [BMI] 28.0-28.9, adult; Z83.3 Family history of diabetes mellitus; Z82.49 Family history of ischemic heart disease and other diseases of the circulatory system
CPT/HCPCS: 36415; 36600; 71045; 71275; 80048; 80053; 80202; 81001; 82565; 82803; 82962; 83605; 83735; 84443; 84484; 85025; 85027; 87040; 90686; 93005; 93010; 93306; 94640; 94660; 96374; 99291; J1160; J1815; J1940; J1956; J2550; J2920; J2930; J3370; J3490; J7050; J7060; J7620; S0119

== ENCOUNTER → 2018-08-05 | Outpatient (CLI) | payer MEDICARE, BC ==
--- NOTE | 2018-08-05 14:36 | RADIOLOGY REPORT (SQ) ---
EXAM DESCRIPTION: CT CHEST WITH COMPLETED DATE/TIME: 08/05/2018 2:10 pm REASON FOR STUDY: J18.9 PNEUMONIA, UNSPECIFIED ORGANISM J18.9 PNEUMONIA, UNSPECIFIED ORGANISM COMPARISON: 07/17/2018 TECHNIQUE: CT scan of the chest performed using helical scanning technique with dynamic intravenous contrast injection. Images reviewed with lung, soft tissue and bone windows. Reconstructed coronal and sagittal MPR and MIP images reviewed. All images stored on PACS. All CT scanners at this facility use dose modulation, iterative reconstruction, and/or weight based d osing when appropriate to reduce radiation dose to as low as reasonably achievable (ALARA). [facility]: Dose Right [facility]: CareDose [facility]: Dose Right [facility]: Teradose 4D [facility]: [employer] CONTRAST TYPE AND DOSE: contrast/concentration: Isovue 350.00 mg/ml; Total Contrast Delivered: 80.0 ml; Total Saline Delivered: 55.0 ml RENAL FUNCTION: BUN 12, creatinine 0.5 RADIATION DOSE: CT Rad equipment meets quality standard of care and radiation dose reduction techniq ues were employed. CTDIvol: 11.2 mGy. DLP: 438 mGy-cm. . LIMITATIONS: None. FINDINGS: LUNGS AND PLEURA: There are scattered bilateral focal airspace opacities. This is most co nsistent with atelectasis. Dense consolidative changes in the right base and right upper lobe previo usly noted have resolved. No effusions. No pneumothorax. HILAR AND MEDIASTINAL STRUCTURES: There are small stable mediastinal lymph nodes. HEART AND VASCULAR STRUCTURES: No aneurysm or dissection. No central pulmonary emboli. No pericardi al effusion. HARDWARE: None in the chest. UPPER ABDOMEN: No significant findings. Limited exam. THYROID AND OTHER SOFT TISSUES: No masses. No adenopathy. BONES: No significant finding. OTHER: No other significant finding. IMPRESSION: Resolving bilateral airspace disease. What remains appears to represent residual atelec tasis. TECHNICAL DOCUMENTATION: JOB ID: [id number] Quality ID # [id number]: Final reports with documentation of one or more dose reduction techniques (e.g., Au tomated exposure control, adjustment of the mA and/or kV according to patient size, use of iterative reconstruction technique) 2010 [employer]- All Rights Reserved Reading location - IP/workstation name: [email or web address]
== END ==
LOC: RAD 13:44
PROVIDERS: ATTEND Student in an Organized Health Care Education/Training Program
DX: J98.11 Atelectasis (principal)
CPT/HCPCS: 71260

== ENCOUNTER 2019-01-31 10:11 | Day surgery (SDC) | payer MEDICARE, BC ==
[~2019-01-31 10:11] MED LIST changes: +BUPIVACAINE HCL 0.75% INJ/PF (7.5 MG/1 ML) 10 ML SDV OS PRN; +CHONDR SU A NA/HYALUR INTRAOC KIT (SURGICARE) ONE; +EPINEPHRINE INJ/PF 1 MG/1 ML AMPULE ONE; +KETOROLAC TROMETHAMINE 0.45% 4 DROP/0.4 ML DROPERETTE OS PRN; +LIDOCAINE 1% INJ-PF (10 MG/ML) 30 ML SDV ONE; +LIDOCAINE 4% INJ/PF (40 MG/ML) 5 ML AMPUL OS PRN; -REGADENOSON INJ 0.4 MG/5 ML DISP.SYRIN IV ONE
[2019-01-31] MEDS: CYCLOPENTOLATE 0.2%/PHENYLEPHRINE 1% OPH SOLN 2 ML OS PRN ×3 (11:07→11:27)
[2019-01-31] MEDS: BESIFLOXACIN HCL 0.6% OPH SUSP 5 ML BOTTLE OS PRN ×4 (11:07→12:18)
[2019-01-31] MEDS: TROPICAMIDE 1% OPH SOLN 3 ML OS PRN ×3 (11:07→11:27)
[2019-01-31] MEDS: TETRACAINE HCL 0.5% OPH SOLN 4 ML OS PRN ×2 (11:08→11:27)
[2019-01-31] MEDS ORDERED: TRYPAN BLUE 0.06 % OPH SOLN 0.5 ML DISP.SYRIN ONE (11:31)
[2019-01-31] MEDS ORDERED: MIDAZOLAM 2 MG/2 ML INJ ONE (11:33)
[2019-01-31] MEDS ORDERED: FENTANYL CITRATE INJ/PF 100 MCG/2 ML AMPUL ONE (11:33)
[2019-01-31] MEDS ORDERED: ALBUTEROL SULFATE 0.083% NEB 2.5 MG/3 ML AMPUL NEB ONE (11:36)
[2019-01-31] MEDS: DORZOLAMIDE HCL 2%/TIMOLOL MALEAT 0.5% OPH SOLN 10 ML OS PRN ×2 (12:18)
--- NOTE | 2019-01-31 13:06 | Operative Report ---
Operative Report-[facility] Operative Report: DATE OF SURGERY: January 31, 2019 PREOPERATIVE DIAGNOSIS: CATARACT, LEFT EYE. POSTOPERATIVE DIAGNOSIS: CATARACT, LEFT EYE. PROCEDURE PERFORMED: PHACOEMULSIFICATION WITH POSTERIOR CHAMBER INTRAOCULAR LENS, LEFT EYE. Intraocular Lens Model : SN 60 WF 13.0 Total Phaco Time: 8.14 CDE SURGEON: MOE PRESSLEY MD ANESTHESIA: TOPICAL WITH MAC. INDICATIONS FOR SURGERY: Difficulty with night driving PROCEDURE: The patient was brought to the Operating Room and placed on the operative table. Following tetracaine drops, topical anesthesia was administered. This consisted of instrument wipe pledgets soaked in a solution of 4% Xylocaine mixed with 0.75% Marcaine in a 1:2 ratio. A 2 x 1 cm pledget was placed in the superior fornix. A 1 x 1 cm pledget was placed in the inferior fornix. The eye was patched shut for 5 minutes. The patch was removed. The eye was sterilely prepped and draped in the usual manner. Lid speculum was placed in the eye. The pledgets were removed. 4-0 black silk sutures were placed around the superior and the inferior rectus muscles to be used as traction. A conjunctival peritomy was made at the 10 o'clock position. Hemostasis was obtained with bipolar cautery. A posterior limbal groove was created using a crescent knife and dissected anteriorly towards the cornea. A sharp point blade was used to create a paracentesis site at the 2 o'clock position. 0.2 cc non preserved Lidocaine was injected into the anterior chamber. A 2.4 mm keratome was used to enter the anterior chamber through the groove. Viscoelastic was injected into the anteriorchamber. An anterior capsulotomy was performed using Utrata forceps in acapsulorrhexis fashion. Hydrodissection and hydrodelineation were performed. Phacoemulsification was performed in [id number]-[id number] technique. Following this, the I/A unit was used to remove residual cortex. Viscoelastic was injected into the capsular bag. The Intraocular lens was placed in the capsular bag. The I/A unit was used to remove residual viscoelastic. The wound was seen to be watertight under high and low pressure, and no sutures were placed. The intraocular lens was well centered. The pressure was adjusted in the eye to normal pressure. The 4-0 black silk sutures and lid speculum were removed. The eye was shielded after Besivance and Cosopt drops were placed. The patient tolerated the procedure well and was sent to the Recovery Room in good condition.
--- NOTE | 2019-01-31 13:07 | PDOC DISCHARGE SUMMARY ---
Discharge Summary-[facility] Discharge Summary: DATE: January 31, 2019 FINAL DIAGNOSIS: CATARACT, LEFT EYE PROCEDURE: Cataract surgery with intraocular lens implant left eye HOSPITAL COURSE: The patient will be discharged to home. The patient is instructed to resume preoperative medications, take Tylenol as needed for discomfort, to keep the eye shielded, They should use the prescribed antibiotic, NSAID, and steroid at 3 PM and 8 PM, and to follow up in my office in 1 day.
== END 2019-01-31 14:35 | disposition home or self-care (01) ==
LOC: SC 10:11
PROVIDERS: ATTEND Ophthalmology
DX: H25.89 Other age-related cataract (principal); H25.811 Combined forms of age-related cataract, right eye; E11.9 Type 2 diabetes mellitus without complications; H52.4 Presbyopia; H43.813 Vitreous degeneration, bilateral; H04.123 Dry eye syndrome of bilateral lacrimal glands; H31.091 Other chorioretinal scars, right eye; C44.1192 Basal cell carcinoma of skin of left lower eyelid, including canthus; J44.9 Chronic obstructive pulmonary disease, unspecified; I48.91 Unspecified atrial fibrillation; I11.9 Hypertensive heart disease without heart failure; F17.210 Nicotine dependence, cigarettes, uncomplicated; K21.9 Gastro-esophageal reflux disease without esophagitis; Z79.51 Long term (current) use of inhaled steroids; Z79.84 Long term (current) use of oral hypoglycemic drugs; Z99.81 Dependence on supplemental oxygen
CPT/HCPCS: 66984; 82962; J2250; J3490 ×5; A9270 ×2; J0171; J3010; V2632

== ENCOUNTER → 2019-03-15 | Outpatient (CLI) | payer MEDICARE, BC | LOC: LB 17:47 | PROVIDERS: ATTEND Ophthalmology | DX: C44.1192 Basal cell carcinoma of skin of left lower eyelid, including canthus (principal) | CPT/HCPCS: 88305 ==

== ENCOUNTER 2019-05-23 06:56 | Day surgery (SDC) | payer MEDICARE, BC ==
[~2019-05-23 06:56] MED LIST changes: +BUPIVACAINE HCL 0.75% INJ/PF (7.5 MG/1 ML) 10 ML SDV OD PRN; -BUPIVACAINE HCL 0.75% INJ/PF (7.5 MG/1 ML) 10 ML SDV OS PRN; -CHONDR SU A NA/HYALUR INTRAOC KIT (SURGICARE) ONE; -EPINEPHRINE INJ/PF 1 MG/1 ML AMPULE ONE; -KETOROLAC TROMETHAMINE 0.45% 4 DROP/0.4 ML DROPERETTE OS PRN; -LIDOCAINE 1% INJ-PF (10 MG/ML) 30 ML SDV ONE; +LIDOCAINE 4% INJ/PF (40 MG/ML) 5 ML AMPUL OD PRN; -LIDOCAINE 4% INJ/PF (40 MG/ML) 5 ML AMPUL OS PRN
[2019-05-23] MEDS: TETRACAINE HCL 0.5% OPH SOLN 4 ML OD PRN ×2 (07:00→07:24)
[2019-05-23] MEDS: BESIFLOXACIN HCL 0.6% OPH SUSP 5 ML BOTTLE OD PRN ×4 (07:00→07:57)
[2019-05-23] MEDS: CYCLOPENTOLATE 0.2%/PHENYLEPHRINE 1% OPH SOLN 2 ML OD PRN ×3 (07:00→07:22)
[2019-05-23] MEDS: KETOROLAC TROMETHAMINE 0.45% 4 DROP/0.4 ML DROPERETTE OD PRN ×2 (07:00→08:09)
[2019-05-23] MEDS: TROPICAMIDE 1% OPH SOLN 15 ML OD PRN ×3 (07:00→07:22)
[2019-05-23] MEDS ORDERED: MIDAZOLAM 2 MG/2 ML INJ ONE (07:13)
[2019-05-23] MEDS ORDERED: FENTANYL CITRATE INJ/PF 100 MCG/2 ML AMPUL ONE (07:13)
[2019-05-23] MEDS: LIDOCAINE 1% INJ-PF (10 MG/ML) 30 ML SDV ONE ×2 (07:47)
[2019-05-23] MEDS: CHONDR SU A NA/HYALUR INTRAOC KIT (SURGICARE) ONE ×2 (07:47)
[2019-05-23] MEDS: EPINEPHRINE INJ/PF 1 MG/1 ML AMPULE ONE ×2 (07:47)
[2019-05-23] MEDS: DORZOLAMIDE HCL 2%/TIMOLOL MALEAT 0.5% OPH SOLN 10 ML OD PRN ×2 (07:57)
--- NOTE | 2019-05-23 14:45 | Operative Report ---
Operative Report-[facility] Operative Report: DATE OF SURGERY: 05/23/2019 PREOPERATIVE DIAGNOSIS: CATARACT, RIGHT EYE. POSTOPERATIVE DIAGNOSIS: CATARACT, RIGHT EYE. PROCEDURE PERFORMED: PHACOEMULSIFICATION WITH POSTERIOR CHAMBER INTRAOCULAR LENS, RIGHT EYE. Intraocular Lens Model : SN 60 WF 17.0 Total Phaco Time: 3.02 CDE SURGEON: MOE PRESSLEY MD ANESTHESIA: TOPICAL WITH MAC. INDICATIONS FOR SURGERY: Difficulty with small print and driving at night. PROCEDURE: The patient was brought to the Operating Room and placed on the operative table. Following tetracaine drops, topical anesthesia was administered. This consisted of instrument wipe pledgets soaked in a solution of 4% Xylocaine mixed with 0.75% Marcaine in a 1:2 ratio. A 2 x 1 cm pledget was placed in the superior fornix. A 1 x 1 cm pledget was placed in the inferior fornix. The eye was patched shut for 5 minutes. The patch was removed. The eye was sterilely prepped and draped in the usual manner. Lid speculum was placed in the eye. The pledgets were removed. 4-0 black silk sutures were placed around the superior and the inferior rectus muscles to be used as traction. A conjunctival peritomy was made at the 10 o'clock position. Hemostasis was obtained with bipolar cautery. A posterior limbal groove was created using a crescent knife and dissected anteriorly towards the cornea. A sharp point blade was used to create a paracentesis site at the 2 o'clock position. 0.2 cc non preserved Lidocaine was injected into the anterior chamber. A 2.4 mm keratome was used to enter the anterior chamber through the groove. Viscoelastic was injected into the anterior chamber. An anterior capsulotomy was performed using Utrata forceps in a capsulorrhexis fashion. Hydrodissection and hydrodelineation were performed. Phacoemulsification was performed in phedzj-hyu-qusidvy technique. Following this, the I/A unit was used to remove residual cortex. Viscoelastic was injected into the capsular bag. The Intraocular lens was placed in the capsular bag. The I/A unit was used to remove residual viscoelastic. The wound was seen to be watertight under high and low pressure, and no sutures were placed. The intraocular lens was well centered. The pressure was adjusted in the eye to normal pressure. The 4-0 black silk sutures and lid speculum were removed. The eye was shielded after Besivance and Cosopt drops were placed. The patient tolerated the procedure well and was sent to the Recovery Room in good condition.
== END 2019-05-23 08:42 | disposition home or self-care (01) ==
LOC: SC 06:56
PROVIDERS: ATTEND Ophthalmology
DX: H25.811 Combined forms of age-related cataract, right eye (principal); C44.1192 Basal cell carcinoma of skin of left lower eyelid, including canthus; Q14.2 Congenital malformation of optic disc; H31.091 Other chorioretinal scars, right eye; E11.9 Type 2 diabetes mellitus without complications; J44.9 Chronic obstructive pulmonary disease, unspecified; I11.9 Hypertensive heart disease without heart failure; I48.91 Unspecified atrial fibrillation; K21.9 Gastro-esophageal reflux disease without esophagitis; F17.210 Nicotine dependence, cigarettes, uncomplicated; Z88.0 Allergy status to penicillin; Z88.1 Allergy status to other antibiotic agents; Z79.51 Long term (current) use of inhaled steroids; Z79.899 Other long term (current) drug therapy; Z79.84 Long term (current) use of oral hypoglycemic drugs; Z99.81 Dependence on supplemental oxygen
CPT/HCPCS: 66984; 82962; V2632; J2250; J3490 ×5; A9270; J0171; J3010

== ENCOUNTER → 2020-01-03 | Outpatient (CLI) | payer MEDICARE, BC ==
--- NOTE | 2020-01-03 17:40 | RADIOLOGY REPORT (SQ) ---
EXAM DESCRIPTION: CT HEAD WITHOUT IMAGES COMPLETED DATE/TIME: 01/03/2020 4:22 pm REASON FOR STUDY: S09.90XA UNSPECIFIED INJURY OF HEAD, INITIAL ENCOUNTER S09.90XA UNSPECIFIED INJUR Y OF HEAD, INITIAL ENCOUNTER COMPARISON: 03/24/2016 TECHNIQUE: Axial images acquired through the brain without intravenous contrast. Images reviewed wi th bone, brain and subdural windows. Additional sagittal and coronal reconstructions were generated. Images stored on PACS. All CT scanners at this facility use dose modulation, iterative reconstruction, and/or weight based d osing when appropriate to reduce radiation dose to as low as reasonably achievable (ALARA). [facility]: Dose Right [facility]: CareDose [facility]: Dose Right [facility]: Teradose 4D [facility]: Smart [employer] RADIATION DOSE: CT Rad equipment meets quality standard of care and radiation dose reduction techniq ues were employed. CTDIvol: 53.2 mGy. DLP: 1017 mGy-cm. mGy. LIMITATIONS: None. FINDINGS: VENTRICLES: Normal size and contour. CEREBRUM: No masses. No hemorrhage. No midline shift. No evidence for acute infarction. Few scatte red areas of low density in the white matter most likely chronic small vessel ischemic changes. CEREBELLUM: No masses. No hemorrhage. No alteration of density. No evidence for acute infarction. EXTRAAXIAL SPACES: No fluid collections. No masses. ORBITS AND GLOBE: No intra- or extraconal masses. Normal contour of globe without masses. CALVARIUM: No fracture. PARANASAL SINUSES: No fluid or mucosal thickening. SOFT TISSUES: No mass or hematoma. OTHER: No other significant finding. IMPRESSION: MILD CHRONIC MICROVASCULAR ISCHEMIA. NO ACUTE IMAGING FINDINGS IN THE BRAIN. EVIDENCE OF ACUTE STROKE: NO. COMMENT: Attempted to call the report to Dr. Ram without success at 1734 hours on this date. Quality ID # [id number]: Final reports with documentation of one or more dose reduction techniques (e.g., Au tomated exposure control, adjustment of the mA and/or kV according to patient size, use of iterative reconstruction technique) TECHNICAL DOCUMENTATION: JOB ID: [id number] 2010 [employer]- All Rights Reserved Reading location - IP/workstation name: [email or web address]
== END ==
LOC: RAD 15:42
PROVIDERS: ATTEND Family Medicine
DX: S09.90XA Unspecified injury of head, initial encounter (principal); X58.XXXA Exposure to other specified factors, initial encounter; Z79.01 Long term (current) use of anticoagulants
CPT/HCPCS: 70450

== ENCOUNTER 2020-02-06 11:46 | Day surgery (SDC) | payer MEDICARE, BC ==
[~2020-02-06 11:46] MED LIST changes: +BALANCED SALT IRRIG SOLN COMB2 15 ML BOTTLE ONE; -BUPIVACAINE HCL 0.75% INJ/PF (7.5 MG/1 ML) 10 ML SDV OD PRN; +BUPIVACAINE HCL 0.75% INJ/PF (7.5 MG/1 ML) 10 ML SDV ONE; +EPINEPHRINE INJ/PF 1 MG/1 ML AMPULE ONE; +LIDOCAINE 2%/EPINEPHRINE INJ 20 ML VIAL ONE; -LIDOCAINE 4% INJ/PF (40 MG/ML) 5 ML AMPUL OD PRN; +NEO/POLYMYX B SULF/DEXAMETH OPH OINTMENT 3.5 GM ONE; +POVIDONE-IODINE 5% OPH PREP SOLN 30 ML ONE; +TETRACAINE HCL 0.5% OPH SOLN 4 ML ONE; +THROMBIN (BOVINE) TOPICAL 5000 UNIT VIAL ONE
[2020-02-06] MEDS ORDERED: MIDAZOLAM 2 MG/2 ML INJ ONE (12:59)
[2020-02-06] MEDS ORDERED: FENTANYL CITRATE INJ/PF 100 MCG/2 ML AMPUL ONE (13:00)
[2020-02-06] MEDS ORDERED: DIPHENHYDRAMINE HCL 50 MG/ML VIAL ONE (13:42)
[2020-02-06] MEDS ORDERED: PROPOFOL INJ 200 MG/20 ML VIAL IV ONE (13:50)
--- NOTE | 2020-02-06 15:56 | Operative Report ---
Operative Report-[facility] Operative Report: DATE OF SURGERY: 2019 PREOPERATIVE DIAGNOSIS: Bilateral upper eyelid Dermatochalasis with visual field loss POSTOPERATIVE DIAGNOSIS: Bilateral upper eyelid Dermatochalasis with visual field loss PROCEDURE PERFORMED: Bilateral upper eyelid blepharoplasty SURGEON: Aurora Breaux MD ANESTHESIA: Local with MAC INDICATION FOR SURGERY: Lids are blocking vision and laying on her eyelashes and having to lift her eyebrows to sleep PROCEDURE: The patient was brought to the operating room and both upper eyelids were sterilely prepped and draped in the usual manner. Tetracaine drops were placed in the eyes. Attention was directed to both upper lids where the upper lid crease was marked and 0.3 mm forceps were used to estimate the excess upper eyelid skin to be excised. This was marked in an elliptical fashion. Local anesthesia was administered. This consisted of 2% Xylocaine with epinephrine mixed with 0.75% Marcaine. Approximately 2.5 mL's of this was used to infiltrate both upper eyelids in the previous marked areas and the local anesthetic was diffuse with a Q-tip. Attention was directed to the left upper lid where the elliptical of skin was removed. Hemostasis was obtained with bipolar cautery. The orbital septum was opened and prolapse retroseptal fat was grasped with a hemostat, cut and cauterized. thrombin soaked on a pad was placed on the incision. Identical procedure was performed on the right upper lid. Wound closure was completed with 3 interrupted 6-0 silk sutures, equally spaced through both upper lids, taking a deep bite of the fascia. This was followed by a running 6-0 nylon suture. There was full closure of the lids and good hemostasis at the end of the surgery. Maxitrol ointment was placed on both upper lids. Patient tolerated procedure well and sent to recovery room and in good condition.
== END 2020-02-06 15:09 ==
LOC: SC 11:46
PROVIDERS: ATTEND Ophthalmology
DX: H02.831 Dermatochalasis of right upper eyelid (principal); H02.834 Dermatochalasis of left upper eyelid; H53.453 Other localized visual field defect, bilateral; Z96.1 Presence of intraocular lens; E11.9 Type 2 diabetes mellitus without complications; J44.9 Chronic obstructive pulmonary disease, unspecified; I48.91 Unspecified atrial fibrillation; R01.1 Cardiac murmur, unspecified; Z87.891 Personal history of nicotine dependence; Z88.1 Allergy status to other antibiotic agents; Z88.0 Allergy status to penicillin; Z79.01 Long term (current) use of anticoagulants; G47.33 Obstructive sleep apnea (adult) (pediatric); R06.02 Shortness of breath; Z03.818 Encounter for observation for suspected exposure to other biological agents ruled out
CPT/HCPCS: 15823; 82962; U0003; J2250; J3490 ×6; J1200; J3010; A9270; J2704; C9803; 103; 87635; J0171

== ENCOUNTER → 2020-06-17 | Outpatient (CLI) | payer MEDICARE, BC ==
--- NOTE | 2020-06-17 12:46 | RADIOLOGY REPORT (SQ) ---
EXAM DESCRIPTION: CT CHEST WITHOUT IMAGES COMPLETED DATE/TIME: 06/17/2020 10:40 am REASON FOR STUDY: (R91.8)OTHER NONSPECIFIC ABNORMAL FINDING OF LUNG FIELD R91.8 OTHER NONSPECIFIC A BNORMAL FINDING OF LUNG FIELD COMPARISON: 08/05/2018 TECHNIQUE: CT scan performed of the chest without intravenous contrast. Images reviewed with lung, soft tissue and bone windows. Reconstructed coronal and sagittal MPR images reviewed. All images st ored on PACS. All CT scanners at this facility use dose modulation, iterative reconstruction, and/or weight based d osing when appropriate to reduce radiation dose to as low as reasonably achievable (ALARA). [facility]: Dose Right [facility]: CareDose [facility]: Dose Right [facility]: Teradose 4D [facility]: [employer] RADIATION DOSE: CT Rad equipment meets quality standard of care and radiation dose reduction techniq ues were employed. CTDIvol: 13.7 mGy. DLP: 560 mGy-cm. mGy. LIMITATIONS: No technical limitations. FINDINGS: LUNGS AND PLEURA: There are mild atelectatic changes in both lungs. No masses. No acute infiltrates. No pleural effusions. HILAR AND MEDIASTINAL STRUCTURES: Mild central pulmonary vascular prominence. No mediastinal or kena r adenopathy or masses. HEART AND VASCULAR STRUCTURES: No aneurysm. No pericardial effusion. UPPER ABDOMEN: No significant findings. Limited exam. THYROID AND OTHER SOFT TISSUES: No masses. No adenopathy. BONES: No significant finding. HARDWARE: Heart valve. OTHER: No other significant findings. IMPRESSION: Mild atelectatic changes. No acute pulmonary findings. Central pulmonary vascular prom inence. Is there history of pulmonary arterial hypertension? TECHNICAL DOCUMENTATION: JOB ID: [id number] Quality ID # [id number]: Final reports with documentation of one or more dose reduction techniques (e.g., Au tomated exposure control, adjustment of the mA and/or kV according to patient size, use of iterative reconstruction technique) 2010 [employer]- All Rights Reserved Reading location - IP/workstation name: [email or web address]
== END ==
LOC: RAD 10:30
PROVIDERS: ATTEND Registered Nurse
DX: R91.8 Other nonspecific abnormal finding of lung field (principal)
CPT/HCPCS: 71250